=== PATIENT | male | born 1950 | race Caucasian/White ===

== ENCOUNTER 2017-02-10 20:54 | Inpatient (IN) ==
[2017-02-10] MEDS ORDERED: 0.9 % Sodium Chloride 1,000 ML IVC ONE (21:46)
[2017-02-10 22:30] LABS: Albumin 3.3 g/dL (3.5-5.0); Albumin/Globulin Ratio 0.9 (1.1-2.2); Bilirubin,Direct 0.1 mg/dL (0.0-0.5); Bilirubin,Indirect 0.2 mg/dL (0.0-1.2); Bilirubin,Total 0.3 mg/dL (0.2-1.2); Globulin 3.7 g/dL (2.4-3.5)
--- NOTE | 2017-02-10 22:48 | Emergency Department Note ---
Disposition Clinical Impression: Acute kidney injury superimposed on CKD Disposition: Admitted As Inpatient Condition: Good [facility] Provider[facility] - Forms: ED Satisfaction Letter General Adult HPI - General Chief complaint: ED GI Bleed Stated complaint: GI bleed Time Seen by Provider: 02/10/17 20:58 Source: patient Limitations: no limitations Nursing Notes Reviewed: Yes Vital Signs Reviewed: Yes - History of Present Illness HPI Narrative: [facility]. Review of patient' s medical chart reveals that appears is in acute on chronic renal failure. Patient states he has not been eating and drinking well over the past 3 days. Patient also states she has had diarrhea but he denies any current diarrhea today. Patient denies fevers or chills but he complains of weakness. Patient denies numbness or tingling associated. Pain Scale: 10 - Related Data Home Medications Medication Instructions Recorded Confirmed Albuterol Sulfate [Albuterol 2 puff IH Q6H PRN 02/10/17 02/10/17 Inhaler] Calcium Carbonate/Vitamin D3 2 each PO BID 02/10/17 02/10/17 [Calcium 500-Vit D3 200 Tablet] Cholecalciferol (D-3) [Vitamin D] 1,000 unit PO DAILY 02/10/17 02/10/17 Doxepin HCl 10 mg PO HS 02/10/17 02/10/17 L. Acidophilus/Pectin, [place] 1 each PO TID 02/10/17 02/10/17 [Acidophilus Probiotic Capsule] Metoprolol XL (24 HR) Succ [Toprol 50 mg PO DAILY 02/10/17 02/10/17 XL] Naproxen [Naprosyn] 500 mg PO BID 02/10/17 02/10/17 Pantoprazole [Protonix] 40 mg IVPB Q12H 02/10/17 02/10/17 Simvastatin [Zocor] 40 mg PO HS 02/10/17 02/10/17 Allergies Allergy/AdvReac Type Severity Reaction Status Date / Time gabapentin Allergy See Verified 02/10/17 21:05 Comments hydrochlorothiazide Allergy See Verified 02/10/17 21:05 Comments hydroxyzine [From Vistaril] Allergy See Verified 02/10/17 21:05 Comments All systems ED: reviewed and negative except as stated. Past Medical History - Past Medical History Source: patient Medical history: Reports: COPD, hyperlipidemia, hypertension, peripheral artery disease - Social History Smoking Status: Current every day smoker Smokeless Tobacco Status: No Alcohol use: Reports: none Drug use: Reports: none Physical Exam - General Limitations: no limitations General appearance: alert - Head Head exam: atraumatic, normocephalic, normal inspection - Eye Eye exam: Present: normal appearance, PERRL, EOMI - ENT ENT exam: normal exam, normal oropharynx, mucous membranes dry - Neck Neck exam: Present: normal inspection, full ROM, trachea midline - Chest Chest inspection: Present: normal inspection, symmetric chest wall rise - Respiratory Respiratory exam: Present: normal lung sounds bilaterally - Cardiovascular Cardiovascular exam: Present: regular rate, normal rhythm, normal heart sounds - Abdominal Exam Abdominal exam: Present: soft, Non-Tender. Absent: tenderness, distention, guarding, rebound, rigidity - Extremities Exam Extremities exam: Present: normal inspection, full ROM. Absent: tenderness, pedal edema - Back Exam Back exam: Present: normal inspection, full ROM. Absent: tenderness - Neurological Exam Neurological exam: Present: alert, oriented X3 - Psychiatric Psychiatric exam: Present: normal affect, normal mood - Skin Skin exam: Present: warm, dry, intact, normal color Course Vital Signs Temperature 98.4 F 02/10/17 20:56 Pulse Rate 110 02/10/17 20:56 Respiratory Rate 16 02/10/17 20:56 Blood Pressure 148/89 02/10/17 20:56 O2 Sat by Pulse Oximetry 98 02/10/17 20:56 Temperature 98.4 F 02/10/17 20:56 Pulse Rate 93 02/10/17 23:50 Respiratory Rate 16 02/10/17 23:50 Blood Pressure 144/76 02/10/17 23:50 O2 Sat by Pulse Oximetry 97 02/10/17 23:50 Oxygen Delivery Oxygen Delivery Room Air Medical Decision Making - Lab Data Lab Results 02/10/17 02/10/17 02/10/17 Range/Units 22:08 22:08 22:08 Lactic Acid 2.2 (0.5-2.2) mmol/L Total Bilirubin 0.3 (0.2-1.2) mg/dL Direct Bilirubin 0.1 (0.0-0.5) mg/dL Indirect Bilirubin 0.2 (0.0-1.2) mg/dL AST 42 H (5-34) Units/L ALT 16 (0-55) Units/L Alkaline Phosphatase 79 (38-126) Units/L Troponin I 0.06 H* (0-0.03) ng/mL Serum Total Protein 7.0 (6.0-8.3) g/dL Albumin 3.3 L (3.5-5.0) g/dL Globulin 3.7 H (2.4-3.5) g/dL Albumin/Globulin Ratio 0.9 L (1.1-2.2) - EKG Data EKG #1 EKG shows normal: sinus rhythm Rate: normal Rhythm: NSR Critical Care Time Total Critical Care Time: 30 Attestation: Critical care performed: Time is exclusive of separately billable procedures. Time includes: direct patient care, patient reassessment, coordination of patient care, interpretation of data (laboratory data, radiology data, and respiratory data), review of patient's medical records, medical consultation and documentation of patient care. Procedures included in critical care time: Procedures excluded from critical care time:
[2017-02-11] MEDS ORDERED: Ondansetron 4 MG/2 ML VIAL IV ONE (00:34)
[2017-02-11] MEDS ORDERED: *HR* Morphine 2 MG/ML SYRINGE IV ONE (00:34)
[2017-02-11] MEDS ORDERED: Naloxone 0.4 MG/ML INJ IVP PRN (02:53)
--- NOTE | 2017-02-11 03:02 | Internal Med History&Physical ---
Date of Encounter: 02/11/17 Time of Encounter: 03:02 Assessment and Plan (1) Acute colitis Current visit: Yes Status: Acute We will check for stool culture and C. difficile. Empirically start on ciprofloxacin and metronidazole. GI consultation for further advice and management. (2) GI bleeding Current visit: Yes Status: Acute Likely secondary to colitis. Avoid anticoagulants at this time. Monitor H&H Qualifiers: GI bleed type/associated pathology: unspecified gastrointestinal hemorrhage type Qualified Code(s): K92.2 - Gastrointestinal hemorrhage, unspecified (3) COPD (chronic obstructive pulmonary disease) Current visit: Yes Status: Chronic Not in acute exacerbation. Continue bronchodilators. Qualifiers: COPD type: unspecified COPD Qualified Code(s): J44.9 - Chronic obstructive pulmonary disease, unspecified (4) Nicotine dependence Current visit: Yes Status: Chronic Pt does not want any nicotine patches Qualifiers: Nicotine product type: cigarettes Substance use status: unspecified nicotine-induced disorder Qualified Code(s): F17.219 - Nicotine dependence, cigarettes, with unspecified nicotine-induced disorders (5) Acute kidney injury superimposed on CKD Current visit: Yes Status: Acute We do not know his baseline creatinine. Likely due to poor oral intake and GI loss. Treat with IV fluids. (6) DVT prophylaxis Current visit: Yes Status: Acute SCDs Internal Medicine - H&P: HPI Chief complaint: Diarrhea, blood in the stool, abdominal pain Admitted From: Emergency Dept Plans for Post Hospital Care: Home History of present illness: Mr. Luna is a 66 year old male with Past medical history significant for COPD , hyperlipidemia, hypertension, peripheral artery disease (?s/p aortofemoral bypass), abdominal aortic aneurysm. He is sent from the [facility] with concern for GI bleed. Pt reports abdominal pain (sensation of fullness) for a few days, along with nausea, diarrhea with (muddy stool) pinkish / blood in the stool. He apparently had over 10 BMs yesterday. He has poor oral intake, and concern that he gets BM after he tries to eat something. He denies recent antibiotic usage, sick contacts, eating salads or uncooked food. He denies fever, chills. He denies chest pain, shortness of breath. Patient was evaluated in the [facility] - CT scan of the abdomen and pelvis reported prominent pancolonic wall thickening with relative sparing of the cecum and proximal ascending colon. Colonic wall thickening is most severe at the hepatic flexure/proximal transverse colon. Also prominent wall thickening in the rectum. Perirectal and pericolonic inflammatory fat stranding most prominent adjacent to the hepatic flexure/proximal transverse colon with a small amount of nearby free fluid. Findings are compatible with relatively severe appearing nonspecific acute colitis/proctitis including possibility D of infectious heart intermittent etiology. His labs done in the [facility] showed no recent 0.1, hemoglobin 14.2, hematocrit 40.1, platelets 72, sodium 137, potassium 4.1, BUN 43, creatinine 2.72. Patient was sent to the emergency department at [facility] - he was given intravenous fluids and admitted to the hospitalist service for further management. Past Med Surg Social Fam HX - Past Medical History Medical history: COPD, hyperlipidemia, hypertension, peripheral artery disease Psychiatric history: anxiety, depression, PTSD - Social History Smoking Status: Current every day smoker Packs per day: 1.5 Smokeless Tobacco Status: No Alcohol use: none Drug use: none - Additional Family History Additional family history: Family history reviewed and is non contributory to current admission Internal Medicine - H&P: Meds Albuterol Sulfate [Albuterol Inhaler] 2 puff IH Q6H PRN 02/10/17 [History] Calcium Carbonate/Vitamin D3 [Calcium 500-Vit D3 200 Tablet] 2 each PO BID 02/10 [History] Cholecalciferol (D-3) [Vitamin D] 1,000 unit PO DAILY 02/10/17 [History] Doxepin HCl 10 mg PO HS 02/10/17 [History] L. Acidophilus/Pectin, [place] [Acidophilus Probiotic Capsule] 1 each PO TID [History] Metoprolol XL (24 HR) Succ [Toprol XL] 50 mg PO DAILY 02/10/17 [History] Naproxen [Naprosyn] 500 mg PO BID 02/10/17 [History] Pantoprazole [Protonix] 40 mg IVPB Q12H 02/10/17 [History] Simvastatin [Zocor] 40 mg PO HS 02/10/17 [History] Allergies gabapentin Allergy (Verified 02/10/17 21:05) See Comments hydrochlorothiazide Allergy (Verified 02/10/17 21:05) See Comments hydroxyzine [From Vistaril] Allergy (Verified 02/10/17 21:05) See Comments All Systems PM: A 10-system review of systems was performed and is negative for pertinent findings except as documented above in the HPI. - Constitutional Vitals: Temp Pulse Resp BP Pulse Ox 99.2 F 100 20 151/75 91 L 02/11/17 01:24 02/11/17 01:24 02/11/17 01:24 02/11/17 01:24 02/11/17 01:24 Exam: General: Not in acute pain at the time of my evaluation HEENT: Oral mucosa is moist. No conjunctival palor or scleral icterus Neck: No obvious neck swellings Lungs: Clear to auscultation Cardiac: Regular rate and rhythm. No significant murmurs Abdomen: mild diffuse abdominal tenderness. Bowel sounds increased. There is old midline scar present Genitourinary: No briceño catheter Neurological: Alert and oriented. No gross localizing deficits Psych: Not aggressive or agitated Extremities: no significant leg edema Skin: No generalized rash Internal Med - H&P Results - Labs CBC & Chem 7: 02/11/17 04:42 02/11/17 04:42 - EKG Data -: EKG Interpreted by Myself EKG shows normal: sinus rhythm Rate: tachycardia
[2017-02-11] MEDS: Ondansetron 4 MG/2 ML VIAL IVP PRN ×2 (04:11→20:25)
[2017-02-11] MEDS: 0.9 % Sodium Chloride 1,000 ML IVC SCH ×2 (04:11→15:04)
[2017-02-11 05:07] LABS: Red Cell Distribution Width 14.6 % (11.5-14.5)
[2017-02-11 05:08] LABS: Basophils % 0.1 %; Hematocrit 39.7 % (37.5-50.1); Immature Granulocytes % 0.5 % (0-4); Immature Platelets 17.6 % (1.1-6.1); Lymphocytes # 0.9 K/mcL (0.6-4.6); Lymphocytes % 10.2 %; Mean Corpuscular HGB Conc 32.7 g/dL (31.6-35.5); Mean Corpuscular Volume 88.4 fL (83.0-100.0); Mean Platelet Volume 13.6 fL (9.4-12.4); Monocytes # 0.6 K/mcL (0.0-1.3); Monocytes % 7.4 %; Red Blood Count 4.49 M/mcL (4.19-5.50); Segmented Neutrophils % 81.8 %
[2017-02-11 05:18] LABS: Calcium 7.6 mg/dL (8.6-10.8); Potassium 4.6 mEq/L (3.5-4.5)
[2017-02-11 05:35] LABS: Platelet Count 55 K/mcL (140-400)
[2017-02-11 05:36] LABS: Platelet Estimate Decreased (Normal)
[2017-02-11] MEDS: Pantoprazole 40 MG VIAL IVPB SCH ×2 (06:19→17:54)
[2017-02-11] MEDS: Metoprolol XL (24 HR) Succ 50 MG TAB.ER.24H PO SCH (09:09)
[2017-02-11] MEDS: Lactobacillus 1 EACH CAP.SPRINK PO SCH ×2 (09:10→20:20)
[2017-02-11] MEDS: MetroNIDAZOLE 500 MG/100 ML 500 MG/100 ML BAG IVPB SCH ×3 (09:10→23:16)
--- NOTE | 2017-02-11 12:24 | Gastroenterology Consult Note ---
<Mandeep Wood Ramona - Last Filed: 02/11/17 12:22> Date of Encounter: 02/11/17 Time of Encounter: 10:10 - Assessment and plan (1) Acute colitis Current Visit: Yes Status: Acute Assessment and plan: Likely ischemic colitis. Check stool studies. Plan for colonoscopy in 4-6 weeks as outpatient. Continue IV fluids, ATB, and pain control. (2) GI bleeding Current Visit: Yes Status: Acute Assessment and plan: Secondary to colitis. Qualifiers: GI bleed type/associated pathology: unspecified gastrointestinal hemorrhage type Qualified Code(s): K92.2 - Gastrointestinal hemorrhage, unspecified (3) COPD (chronic obstructive pulmonary disease) Current Visit: Yes Status: Chronic Qualifiers: COPD type: unspecified COPD Qualified Code(s): J44.9 - Chronic obstructive pulmonary disease, unspecified - Time Spent With Patient Total time spent is greater than 50% in coordination of care (as documented) at patient's floor/unit and/or counseling patient: GI History of Present Illness - Data of Consult Patient: new to practice Consult date: 02/11/17 Requesting Physician: Mamie Lindo MD - Consult Narrative Reason for consult: Pancolitis History of present illness: Mr. Luna is a 66 year old male with PMHx of COPD, HLD, HTN, PAD, AAA who was sent from the [facility] with concern for GI bleed. He complains of abdominal pain, nausea, diarrhea with blood in stool. He reports 10 BMs the day before admission with BRBPR at times. CT A/P at the [facility] showed prominent pancolonic wall thickening with relative sparing of the cecum and proximal ascending colon. Colonic wall thickening is most severe at the hepatic flexure/proximal transverse colon, also prominent wall thickening in the rectum. Perirectal and pericolonic inflammatory fat stranding most prominent adjacent to the hepatic flexure/proximal transverse colon with a small amount of nearby free fluid. He denies fever, chills, chest pain, or SOB. Procedures: None reported NSAIDs: None Anticoagulation: None Past Med Surg Social Fam HX - Past Medical History Medical history: COPD, hyperlipidemia, hypertension, peripheral artery disease Psychiatric history: anxiety, depression, PTSD - Social History Smoking Status: Current every day smoker Packs per day: 1.5 Smokeless Tobacco Status: No Alcohol use: none Drug use: none - Gastrointestinal Gastrointestinal: Present: as per HPI - Constitutional Constitutional: as per HPI - EENT Eyes: as per HPI Ears: Present: as per HPI Nose, mouth and throat: Present: as per HPI - Cardiovascular Cardiovascular ROS: Present: as per HPI - Respiratory Respiratory IM: Present: as per HPI - Genitourinary Genitourinary: Absent: change in color, Urinary frequency - Neurological ROS Neurological GI: Present: as per HPI - Hematologic/Lymphatic Hematologic/Lymphatic pediatric: Present: as per HPI - Musculoskeletal Musculoskeletal ROS GI: Present: as per HPI - Integumentary Integumentary GI: Present: as per HPI - Psychiatric ROS Psychiatric GI: Present: as per HPI - Endocrine Endocrine IM: Present: as per HPI - Constitutional Vitals: Temp Pulse Resp BP Pulse Ox 98.1 F 88 16 127/76 93 L 02/11/17 10:35 02/11/17 10:35 02/11/17 10:35 02/11/17 10:35 02/11/17 10:35 General appearance: Present: cooperative, A&O X 3, no acute distress, answers questions appropriately - Head Head exam: Present: atraumatic, normocephalic - Eye Eye exam: Present: normal appearance, sclera anicteric - ENT ENT exam: Present: mucous membranes moist - Neck Neck exam general surgery: Present: normal inspection, trachea midline - Respiratory Respiratory exam: Present: CTAB - Cardiovascular Cardiovascular exam: Present: RRR, +S1, +S2 - GI/Abdominal GI/Abdominal exam: Present: guarding, soft, tenderness (generalized), no peritoneal signs. Absent: distended, firm Additional comments: midabdominal surgical scar - Rectal Rectal exam: Present: deferred - Extremities Exam Extremities exam: Present: warm - Neurological Exam Neurological exam: Present: no focal deficits - Psychiatric Psychiatric exam: Present: normal affect, normal mood - Skin Skin exam: Present: dry, intact, normal color, warm Results - Labs CBC & Chem 7: 02/11/17 04:42 02/11/17 04:42 Labs: Last Result Calcium 7.6 mg/dL (8.6-10.8) L 02/11/17 04:42 Troponin I 0.06 ng/mL (0-0.03) H* 02/11/17 04:42 Entire Visit Hgb 13.0 g/dL (12.9-16.9) 02/11/17 04:42 Hct 39.7 % (37.5-50.1) 02/11/17 04:42 Total Bilirubin 0.3 mg/dL (0.2-1.2) 02/10/17 22:08 AST 42 Units/L (5-34) H 02/10/17 22:08 ALT 16 Units/L (0-55) 02/10/17 22:08 Consult Discharge Plan - Plan [facility]errals: [facility]Primary Care Provider[facility] - <Chaz English - Last Filed: 02/11/17 17:50> Time of Encounter: 14:00 - Time Spent With Patient Total time spent is greater than 50% in coordination of care (as documented) at patient's floor/unit and/or counseling patient: GI History of Present Illness - Data of Consult Requesting Physician: Mamie Lindo MD - Consult Narrative History of present illness: Mr. Luna is a 66 year old male - Constitutional Vitals: Temp Pulse Resp BP Pulse Ox 98.9 F 88 18 119/67 90 L 02/11/17 14:53 02/11/17 14:53 02/11/17 14:53 02/11/17 14:53 02/11/17 14:53 Results - Labs CBC & Chem 7: 02/11/17 16:19 02/11/17 04:42 Labs: Last Result Calcium 7.6 mg/dL (8.6-10.8) L 02/11/17 04:42 Troponin I 0.06 ng/mL (0-0.03) H* 02/11/17 04:42 Entire Visit Hgb 12.7 g/dL (12.9-16.9) L 02/11/17 16:19 Hct 38.6 % (37.5-50.1) 02/11/17 16:19 Total Bilirubin 0.3 mg/dL (0.2-1.2) 02/10/17 22:08 AST 42 Units/L (5-34) H 02/10/17 22:08 ALT 16 Units/L (0-55) 02/10/17 22:08 - Attending Attestation I examined this patient and my medical decision-making was reviewed with the [facility]/PA/Advanced Practice Nurse/Resident Physician. I agree with the documented findings, disposition and treatment plan as described except to the extent set forth below.
[2017-02-11 16:27] LABS: Hematocrit 38.6 % (37.5-50.1); Hemoglobin 12.7 g/dL (12.9-16.9)
--- NOTE | 2017-02-11 18:13 | Electrocardiograph Report ---
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
[2017-02-11] MEDS ORDERED: DOXEPIN HCL 10 MG PO SCH (21:00)
[2017-02-11] MEDS ORDERED: *HR* Morphine 2 MG/ML SYRINGE IVP ONE (22:10)
[2017-02-12] MEDS: 0.9 % Sodium Chloride 1,000 ML IVC SCH ×2 (03:55)
[2017-02-12] MEDS ORDERED: *HR* Morphine 2 MG/ML SYRINGE IVP ONE (04:47)
[2017-02-12] MEDS: Pantoprazole 40 MG VIAL IVPB SCH ×2 (04:56→18:14)
[2017-02-12] MEDS: Ondansetron 4 MG/2 ML VIAL IVP PRN (04:56)
[2017-02-12] MEDS: *HR* Morphine 2 MG/ML SYRINGE IVP PRN ×3 (04:57→18:24)
[2017-02-12] MEDS: Lactobacillus 1 EACH CAP.SPRINK PO SCH ×2 (09:02→19:46)
[2017-02-12] MEDS: MetroNIDAZOLE 500 MG/100 ML 500 MG/100 ML BAG IVPB SCH ×3 (09:03→23:30)
[2017-02-12] MEDS: Metoprolol XL (24 HR) Succ 50 MG TAB.ER.24H PO SCH (09:31)
[2017-02-12] MEDS ORDERED: 0.9 % Sodium Chloride 1,000 ML IVC SCH (09:49)
[2017-02-12 10:24] LABS: Mean Corpuscular Volume 89.7 fL (83.0-100.0); Red Cell Distribution Width 15.1 % (11.5-14.5)
[2017-02-12 10:26] LABS: Hematocrit 36.4 % (37.5-50.1); Hemoglobin 11.7 g/dL (12.9-16.9); Immature Platelets 20.2 % (1.1-6.1); Mean Corpuscular HGB Conc 32.1 g/dL (31.6-35.5); Mean Corpuscular Hemoglobin 28.8 pg (28.0-33.3); Mean Platelet Volume 14.2 fL (9.4-12.4); Red Blood Count 4.06 M/mcL (4.19-5.50)
[2017-02-12 11:23] LABS: Platelet Count 50 K/mcL (140-400)
[2017-02-12 11:27] LABS: Lymphocytes # 1.3 K/mcL (0.6-4.6); Monocytes # 0.2 K/mcL (0.0-1.3); Toxic Vacuolation Present (Not Present)
[2017-02-12 11:28] LABS: Platelet Estimate Decreased (Normal)
[2017-02-12 11:35] LABS: Calcium 7.7 mg/dL (8.6-10.8); Magnesium 1.9 mg/dL (1.6-2.6); Potassium 4.5 mEq/L (3.5-4.5)
--- NOTE | 2017-02-12 18:25 | Internal Med Progress Note ---
Date of Encounter: 02/12/17 Time of Encounter: 10:00 - Assessment and plan (1) Acute colitis Current Visit: Yes Status: Acute Assessment and plan: Patient complains of abdominal pain, nausea, and hematochezia with diarrhea. She reports 10 bowel movements a day before admission with rectal bleeding at times. CT abdomen and pelvis done at the [facility] revealed pancolonic wall thickening with relative sparing of the cecum and proximal ascending colon. Perirectal and pericolonic inflammatory stranding most prominent adjacent to the hepatic flexure/proximal transverse colon with a small amount of nearby free fluid. Clinical Presentation suggests ischemic etiology. Patient's abdominal pain has improved mildly. no rectal bleeding. Continue IV cipro/Flagyl and aspirin. (2) Acute worsening of stage 3 chronic kidney disease Current Visit: Yes Status: Acute Assessment and plan: unknown baseline of kidney function. acute injury is pre-renal due to GI bleed/ diarrhea. Improving after starting IV fluids. close monitor. avoid nephrotoxin agents as possible. (3) Acute blood loss anemia Current Visit: Yes Status: Acute Assessment and plan: Secondary to GI bleed from acute colitis. Hgs is 11.7. no need for transfusion at this time. close monitor of hgb. pt is hemodynamically stable. (4) COPD (chronic obstructive pulmonary disease) Current Visit: Yes Status: Chronic Assessment and plan: stable. continue nebs prn. Qualifiers: COPD type: unspecified COPD Qualified Code(s): J44.9 - Chronic obstructive pulmonary disease, unspecified (5) Thrombocytopenia Current Visit: Yes Status: Acute Assessment and plan: Unknown baseline platelets level. platelet is 50-55. close monitor. no active bleeding today. (6) Nicotine dependence Current Visit: Yes Status: Chronic Assessment and plan: counseled to quit smoking, Qualifiers: Nicotine product type: cigarettes Substance use status: unspecified nicotine-induced disorder Qualified Code(s): F17.219 - Nicotine dependence, cigarettes, with unspecified nicotine-induced disorders - Subjective Interval history: Patient reports some improvement of abdominal pain, no nausea, no vomiting, no bleeding. No bowel movement. - Constitutional Vitals: Temp Pulse Resp BP Pulse Ox 97.8 F 85 18 105/65 96 02/12/17 14:30 02/12/17 14:30 02/12/17 14:30 02/12/17 14:30 02/12/17 14:30 General appearance: Present: cooperative, A&O X 3, pleasant, no acute distress, answers questions appropriately - Eye Eye exam: Present: PERRL, sclera anicteric - Neck Neck exam general surgery: Present: supple, trachea midline. Absent: lymphadenopathy - Respiratory Respiratory exam: Present: CTAB - Cardiovascular Cardiovascular exam: Present: RRR - GI/Abdominal GI/Abdominal exam: Present: normal bowel sounds, soft. Absent: distended, tenderness - Extremities Exam Extremities exam: Absent: pedal edema - Back Exam Back exam: Absent: CVA tenderness (L), CVA tenderness (R) - Neurological Exam Neurological exam: Present: alert, oriented X3, no focal deficits, strengths equal and symetr throughout. Absent: facial droop, speech deficit - Skin Skin exam: Absent: rash Internal Medicine: Result - Labs CBC & Chem 7: 02/12/17 10:14 02/12/17 10:14 Labs: Short CBC 02/12/17 Range/Units 10:14 WBC 9.5 (4.3-11.1) K/mcL Hgb 11.7 L (12.9-16.9) g/dL Hct 36.4 L (37.5-50.1) % Plt Count 50 L (140-400) K/mcL Neutrophils # 8.0 (1.6-8.9) K/mcL BMP 02/12/17 10:14 Sodium 136 Potassium 4.5 Chloride 110 H Carbon Dioxide 17 L BUN 38 H Creatinine 1.75 H Glucose 90 Calcium 7.7 L - VTE Documentation of Mechanical Device: Intermittent pneumatic compression device Consult Discharge Plan - Plan Referrals: [facility] [Outside]
[2017-02-12] MEDS ORDERED: *HR* Morphine 2 MG/ML SYRINGE IVP PRN (18:29)
[2017-02-13 04:46] LABS: Basophils % 0.1 %; Mean Corpuscular Hemoglobin 28.6 pg (28.0-33.3)
[2017-02-13 04:48] LABS: Hematocrit 35.9 % (37.5-50.1); Hemoglobin 11.4 g/dL (12.9-16.9); INR 1.2; Immature Granulocytes % 1.3 % (0-4); Immature Platelets 22.5 % (1.1-6.1); Lymphocytes # 0.9 K/mcL (0.6-4.6); Lymphocytes % 11.5 %; Mean Corpuscular HGB Conc 31.8 g/dL (31.6-35.5); Mean Corpuscular Volume 90.2 fL (83.0-100.0); Mean Platelet Volume 13.6 fL (9.4-12.4); Monocytes # 0.5 K/mcL (0.0-1.3); Monocytes % 5.7 %; Neutrophils # 6.4 K/mcL (1.6-8.9); Red Blood Count 3.98 M/mcL (4.19-5.50); Red Cell Distribution Width 15.5 % (11.5-14.5); Segmented Neutrophils % 81.4 %
[2017-02-13 04:59] LABS: Calcium 7.9 mg/dL (8.6-10.8); Magnesium 1.8 mg/dL (1.6-2.6); Potassium 4.7 mEq/L (3.5-4.5)
[2017-02-13] MEDS: Pantoprazole 40 MG VIAL IVPB SCH (05:08)
[2017-02-13 05:24] LABS: Platelet Count 54 K/mcL (140-400)
[2017-02-13 05:25] LABS: Platelet Estimate Decreased (Normal)
[2017-02-13 05:33] LABS: Folate 4.6 ng/mL (7.0-31.4)
[2017-02-13] MEDS: MetroNIDAZOLE 500 MG/100 ML 500 MG/100 ML BAG IVPB SCH (08:39)
[2017-02-13] MEDS: Lactobacillus 1 EACH CAP.SPRINK PO SCH (08:39)
[2017-02-13] MEDS: Metoprolol XL (24 HR) Succ 50 MG TAB.ER.24H PO SCH (08:39)
[2017-02-13] MEDS ORDERED: Aspirin 81 MG TAB.CHEW PO SCH (09:00)
[2017-02-13] MEDS ORDERED: *HR* HYDROcodone/Acet 5/325 mg TABLET PO PRN (10:07)
--- NOTE | 2017-02-13 10:12 | Discharge Summary ---
Date of Encounter: 02/13/17 Time of Encounter: 09:45 - Discharge Diagnosis (1) Acute colitis Priority: Primary Status: Acute (2) Acute worsening of stage 3 chronic kidney disease Priority: Primary Status: Acute (3) Acute blood loss anemia Priority: Primary Status: Acute (4) COPD (chronic obstructive pulmonary disease) Priority: Secondary Status: Chronic Qualifiers: COPD type: unspecified COPD Qualified Code(s): J44.9 - Chronic obstructive pulmonary disease, unspecified (5) Thrombocytopenia Priority: Primary Status: Chronic (6) Nicotine dependence Priority: Secondary Status: Chronic Qualifiers: Nicotine product type: cigarettes Substance use status: unspecified nicotine-induced disorder Qualified Code(s): F17.219 - Nicotine dependence, cigarettes, with unspecified nicotine-induced disorders - Discharge Medications Prescriptions: HYDROcodone/Acet 5/325 mg [[place] 5-325 mg] 1 tab PO Q8HR PRN #10 tab PRN Reason: Pain Aspirin 81 mg PO DAILY #30 tab.chew Ciprofloxacin [Cipro] 500 mg PO BID #10 tablet MetroNIDAZOLE [Flagyl] 500 mg PO TID #12 tablet Home Medications: Albuterol Sulfate [Albuterol Inhaler] 2 puff IH Q6H PRN 02/10/17 [History] Calcium Carbonate/Vitamin D3 [Calcium 500-Vit D3 200 Tablet] 2 each PO BID 02/10 [History] Cholecalciferol (D-3) [Vitamin D] 1,000 unit PO DAILY 02/10/17 [History] Doxepin HCl 10 mg PO HS 02/10/17 [History] L. Acidophilus/Pectin, [place] [Acidophilus Probiotic Capsule] 1 each PO TID [History] Metoprolol XL (24 HR) Succ [Toprol Xl] 50 mg PO DAILY 02/10/17 [History] Naproxen [Naprosyn] 500 mg PO BID 02/10/17 [History] Simvastatin [Zocor] 40 mg PO HS 02/10/17 [History] Aspirin 81 mg PO DAILY #30 tab.chew 02/13/17 [Rx] Ciprofloxacin [Cipro] 500 mg PO BID #10 tablet 02/13/17 [Rx] HYDROcodone/Acet 5/325 mg [[place] 5-325 mg] 1 tab PO Q8HR PRN #10 tab 02/13/17 [ Rx] MetroNIDAZOLE [Flagyl] 500 mg PO TID #12 tablet 02/13/17 [Rx] Allergies/Adverse Reactions: Allergies gabapentin Allergy (Verified 02/10/17 21:05) See Comments hydrochlorothiazide Allergy (Verified 02/10/17 21:05) See Comments hydroxyzine [From Vistaril] Allergy (Verified 02/10/17 21:05) See Comments Date of admission: 02/11/17 03:01 Primary care physician: PCP [place] - Patient Status Disposition: Home, Self-Care Condition: Good Functional capacity at discharge: independent ambulation Overall status at discharge: patient is progressing back to baseline - Ambulatory Orders Ambulatory Orders: Basic Metabolic Panel [CHEM] Time Frame: 02/16/17, Facility: [facility], Location: Lab - Discharge Instructions Follow Up With: [facility] [Outside] (f/u in 1 week) Additional Instructions: STOP SMOKING, TOBACCO CAUSED YOU THE INFLAMMATION IN YOUR BOWELS WELL THE RECTAL BLEEDING FOLLOW UP WITH YOUR DOCTOR NEXT WEEK TAKE NEW MEDICATIONS PRESCRIBED EAT A SOFT DIET FOR A FEW DAYS AND ADVANCE YOUR DIET TO SOLID TOLERATED. - Diet and Activity Activity: resume usual activities as tolerated Diet: other (SOFT, LOW FAT DIET FOR FEW DAYS, THEN ADVACE TO LOW FAT SOLID DIET TOLERATED) Interval History: Patient reports he feels better and would like to go home. He is not eating his diet because he does not like the food. He is drinking plenty of fluids. No nausea. No vomiting. He still has some abdominal pain and he is requiring morphine. He Agrees to eat egg for breakfast and if he tolerates he will go home today. Hospital course: Mr. Luna is a 66 year old male with past medical history of COPD, hypertension , PVD 80, tobacco use, and PTSD. He presents with abdominal pain, nausea, and hematochezia with diarrhea. She reports 10 bowel movements a day before admission with rectal bleeding at times. CT abdomen and pelvis done at the [facility] revealed pancolonic wall thickening with relative sparing of the cecum and proximal ascending colon. Perirectal and pericolonic inflammatory stranding most prominent adjacent to the hepatic flexure/proximal transverse colon with a small amount of nearby free fluid. His clinical Presentation suggests ischemic etiology for his acute colitis. She was started on IV ciprofloxacin and IV Flagyl as well as aspirin. His symptoms improved slowly and he was eager to go home. At discharge, he was drinking plenty of fluids and eating only the follicular legs in the hospital. He said that at home he will eat more. His hemoglobin was stable at 11.4 on discharge. PLAN: Patient was counseled to quit smoking given history of severe peripheral vascular disease and new-onset of acute ischemic colitis. BMP check next week. He will follow-up in the [facility] next Week. - Time Spent with Patient Total time spent providing and/or coordinating discharge services: - Constitutional Vitals: Temp Pulse Resp BP Pulse Ox 98.3 F 73 20 127/70 95 02/13/17 07:00 02/13/17 07:00 02/13/17 07:00 02/13/17 07:00 02/13/17 07:00 General appearance: Present: cooperative, A&O X 3, pleasant, no acute distress, answers questions appropriately - Eye Eye exam: Present: PERRL, sclera anicteric - Neck Neck exam general surgery: Present: supple, trachea midline. Absent: lymphadenopathy - Respiratory Respiratory exam: Present: CTAB - Cardiovascular Cardiovascular exam: Present: RRR - GI/Abdominal GI/Abdominal exam: Present: normal bowel sounds, soft. Absent: distended, tenderness - Extremities Exam Extremities exam: Absent: pedal edema - Back Exam Back exam: Absent: CVA tenderness (L), CVA tenderness (R) - Neurological Exam Neurological exam: Present: alert, oriented X3. Absent: facial droop, speech deficit - VTE Documentation of Mechanical Device: Intermittent pneumatic compression device
[2017-02-13 11:55] VITALS: BP 111/64
== END 2017-02-13 15:32 | disposition home or self-care (01) | DRG 394 ==
LOC: EMEROO 20:54 → 3ANU 20:54
PROVIDERS: ADMIT Internal Medicine; ATTEND Internal Medicine Pulmonary Disease

== ENCOUNTER 2017-02-19 20:19 | Inpatient (IN) ==
[2017-02-19] MEDS ORDERED: Ipratropium/Albuterol Neb 3 ML IH ONE (20:52)
[2017-02-19] MEDS ORDERED: *HR* Heparin 5,000 UNIT/ML VIAL IVP PRN ×2 (23:00)
[2017-02-19] MEDS ORDERED: *HR* Heparin 5,000 UNIT/ML VIAL IVP ONE (23:00)
--- NOTE | 2017-02-19 23:05 | Emergency Department Note ---
Disposition Clinical Impression: Bilateral pulmonary embolism Disposition: Admitted As Inpatient Condition: Fair Time of Disposition: 02:00 SOB HPI - General Chief Complaint: ED Shortness of Breath/Dyspnea Stated Complaint: JOSE Time Seen by Provider: 02/19/17 20:32 Source: patient, family, EMS Limitations: no limitations Nursing Notes Reviewed: Yes Vital Signs Reviewed: Yes - History of Present Illness Patient is a 66-year-old male who presents to [facility] ED with a chief complaint of 2 week history of difficulty breathing. States he has felt progressively more and more short of breath. Past medical history significant for COPD. States he did quit smoking approximately one week ago. Patient was recently discharged from our facility after being admitted for GI bleed secondary to colitis. He had been treated with ciprofloxacin and Flagyl. States throughout his stay, he was continuously short of breath. Today, he went to the [facility] who sent him to our emergency department evaluated for possible pulmonary embolus. Patient's kidney function was poor and needed a VQ scan. Pt Subjective Complaint: shortness of breath Onset (ago): week(s) Context: recent illness Severity: severe Consistency/Duration: gradually worsening Improves with: nothing Worsens with: exertion Known history of: COPD Associated symptoms: Reports: cough, wheezing. Denies: chest pain, fever, nausea/vomiting, abdominal pain Treatment prior to arrival: none Cough present: No - Related Data Home oxygen amount: none Home Medications Medication Instructions Recorded Confirmed Albuterol Sulfate [Albuterol 2 puff IH Q6H PRN 02/10/17 02/20/17 Inhaler] Doxepin HCl 10 mg PO HS 02/10/17 02/10/17 L. Acidophilus/Pectin, [place] 1 each PO TID 02/10/17 02/10/17 [Acidophilus Probiotic Capsule] Metoprolol XL (24 HR) Succ [Toprol 50 mg PO DAILY 02/10/17 02/20/17 Xl] Naproxen [Naprosyn] 500 mg PO BID 02/10/17 02/20/17 Previous Rx's Medication Instructions Recorded HYDROcodone/Acet 5/325 mg [[place] 1 tab PO Q8HR PRN #10 tab 02/13/17 5-325 mg] Allergies Allergy/AdvReac Type Severity Reaction Status Date / Time gabapentin Allergy See Verified 02/10/17 21:05 Comments hydrochlorothiazide Allergy See Verified 02/10/17 21:05 Comments hydroxyzine [From Vistaril] Allergy See Verified 02/10/17 21:05 Comments All systems ED: reviewed and negative except as stated. Past Medical History - Past Medical History Attestation: Yes The following information was validated with the patient. Source: patient Medical history: Reports: COPD, hyperlipidemia, hypertension, peripheral artery disease Psychiatric history: Reports: anxiety, depression, PTSD - Social History Smoking Status: Current every day smoker Smokeless Tobacco Status: No Alcohol use: Reports: none Drug use: Reports: none Physical Exam - General Limitations: no limitations General appearance: alert, in no apparent distress - Head Head exam: atraumatic, normocephalic, normal inspection - Eye Eye exam: Present: normal appearance, PERRL, EOMI - ENT ENT exam: normal exam, normal oropharynx, mucous membranes moist - Neck Neck exam: Present: normal inspection, full ROM, trachea midline - Chest Chest inspection: Present: normal inspection, symmetric chest wall rise - Respiratory Respiratory exam: Present: wheezes (Diffusely bilaterally) - Cardiovascular Cardiovascular exam: Present: normal rhythm, tachycardia - Abdominal Exam Abdominal exam: Present: soft, Non-Tender. Absent: tenderness, distention, guarding, rebound, rigidity - Extremities Exam Extremities exam: Present: normal inspection, full ROM. Absent: tenderness, pedal edema - Neurological Exam Neurological exam: Present: alert - Psychiatric Psychiatric exam: Present: normal affect, normal mood - Skin Skin exam: Present: warm, dry, intact, normal color Course Course Narrative: Patient seen and examined. Sent here to rule out PE with VQ scan. VQ scan ordered. Chest x-ray ordered also. Since patient has bilateral diffuse wheezes , all to a triple DuoNeb treatment as well. [facility] - Reevaluation(s) Reevaluation #1: VQ scan shows multiple areas of segmental and subsegmental perfusion defects. Moderate suspicion for pulmonary embolus. Coags ordered. Repeat troponin also ordered. Will start patient on a heparin drip. I spoke with hospitalist Dr. Flores who has accepted patient for admission. Time: 02:00 Vital Signs Temperature 98.2 F 02/19/17 20:25 Pulse Rate 115 02/19/17 20:25 Respiratory Rate 16 02/19/17 20:25 Blood Pressure 150/90 02/19/17 20:25 O2 Sat by Pulse Oximetry 88 02/19/17 20:25 Temperature 98.3 F 02/20/17 07:00 Pulse Rate 90 02/20/17 07:00 Respiratory Rate 17 02/20/17 07:00 Blood Pressure 153/77 02/20/17 07:00 O2 Sat by Pulse Oximetry 93 02/20/17 07:00 Oxygen Delivery Oxygen Delivery Nasal Cannula Shortness of Breath/Dyspnea - Medical Records Medical records reviewed: Yes I reviewed the patient's medical records. - Lab Data Lab results reviewed: Yes I reviewed the patient's lab results. Result diagrams: 02/20/17 05:22 02/20/17 01:22 Lab Results 02/19/17 02/19/17 02/19/17 Range/Units 23:17 23:17 23:36 PT 14.0 H (9.4-12.1) Seconds INR 1.3 APTT 26.1 (26.0-36.0) Seconds Troponin I 0.03 (0-0.03) ng/mL Stool Occult Blood Positive A (Negative) - Radiology Data Radiology results reviewed: Yes I reviewed the patient's radiology results. Pulmonary Perfusion Imaging 02/19/17 20:32 IMPRESSION: Multiple various sized segmental and subsegmental matched ventilation-perfusion defects throughout both lungs are consistent with an intermediate probability study for pulmonary embolism. Suggest clinical correlation, and consider a follow-up CT pulmonary angiogram for more detailed characterization. D/ / Wilfrid White MD / Wilfrid White MD Interpreting Provider: Wilfrid White MD Chest X-Ray 02/19/17 20:51 IMPRESSION: 1. No acute cardiopulmonary disease. D/ / Rickey Cleaning MD / Rickey Cleaning MD Interpreting Provider: Rickey Cleaning MD Critical Care Time Critical Care Time: Yes Total Critical Care Time: 35 Attestation: Critical care performed: Time is exclusive of separately billable procedures. Time includes: direct patient care, patient reassessment, coordination of patient care, interpretation of data (laboratory data, radiology data, and respiratory data), review of patient's medical records, medical consultation and documentation of patient care. Procedures included in critical care time: Procedures excluded from critical care time: Attestation Statement - Attestation Attestation: I, Dg Kraus MD, personally performed a history and physical exam of the patient and discussed their management with the resident. I reviewed the resident's note and agree with the documented findings, medical decision making , and plan of care. 66-year-old male transferred here from the [facility] for a VQ scan to rule out pulmonary embolism. This patient was in the hospital here about a week ago for some rectal bleeding was found to have colitis which was treated with antibiotics. He states that while he was in the hospital he had some shortness of breath which has continued since being discharged and seems to be getting progressively worse. There has been some pleuritic chest pain with coughing or deep breathing. No fever. No increased cough or sputum production. He does have a history of COPD. He was a smoker but quit smoking about a week ago. On examination patient is a well-developed well-nourished elderly male in no acute distress. He is alert and oriented 3. There is no cyanosis or diaphoresis. Chest is nontender to palpation. Breath sounds are decreased bilaterally with scattered bilateral expiratory wheezes. Heart regular rate and rhythm. Abdomen soft and nontender with normal bowel sounds. Labs from the [facility] reviewed. Troponin normal. EKG here normal with no acute changes or ectopy. A VQ scan was obtained and shows intermediate probability for pulmonary emboli with bilateral segmental and subsegmental defects. The hospitalist, Dr. Flores, was consulted and accepted admission of the patient. Patient was placed on a heparin infusion in the emergency department.
[2017-02-19 23:30] LABS: INR 1.3
[2017-02-19 23:33] LABS: Activated Partial Thrombo Time 26.1 Seconds (26.0-36.0)
[2017-02-19] MEDS: Heparin 25,000 UNIT/500 ML D5W 25,000 UNIT/500 ML MLS IVC SCH (23:42)
[2017-02-20] MEDS ORDERED: Naloxone 0.4 MG/ML INJ IVP PRN (01:03)
[2017-02-20] MEDS ORDERED: *HR* Promethazine 25 MG/ML VIAL IVP PRN (01:03)
[2017-02-20] MEDS ORDERED: *HR* Morphine 2 MG/ML SYRINGE IVP ONE (01:36)
[2017-02-20 01:42] LABS: INR 1.3; Prothrombin Time 14.3 Seconds (9.4-12.1)
[2017-02-20 01:45] LABS: Activated Partial Thrombo Time 63.6 Seconds (26.0-36.0)
[2017-02-20] MEDS ORDERED: Albuterol 2.5 MG/3 ML NEBULIZER IH ONE (01:53)
[2017-02-20 01:57] LABS: Albumin/Globulin Ratio 0.7 (1.1-2.2); Bilirubin,Total 0.3 mg/dL (0.2-1.2); Globulin 4.3 g/dL (2.4-3.5); Potassium 3.5 mEq/L (3.5-4.5); Total Protein 7.3 g/dL (6.0-8.3)
[2017-02-20] MEDS ORDERED: Ipratropium/Albuterol Neb 3 ML IH PRN (02:25)
[2017-02-20] MEDS ORDERED: Albuterol 2.5 MG/3 ML NEBULIZER IH PRN (02:26)
--- NOTE | 2017-02-20 02:33 | Internal Med History&Physical ---
<Cherry Limon - Last Filed: 02/20/17 04:19> Date of Encounter: 02/20/17 Time of Encounter: 02:30 Assessment and Plan (1) Pulmonary emboli Current visit: Yes Status: Suspected VQ scan evidence of various segmental and subsegmental ventillation defect CTA not previously done due to CR >2, GFR 46 Cr now 1.5, improved from previous, near baseline BP 141/95, pt prescribed metoprolol but does not take regularly currently hemodynamically stable heparin drip Pt 14.0 INR 1.3 O2 NC prn pain control, supportive care venous doppler ECHO AAA US (2) Atypical chest pain Current visit: Yes Status: Acute on heparin drip pain control EKG NS tachycardia trop .02 will recheck trop ECHO AAA US (3) HTN (hypertension) Current visit: Yes Status: Acute 141/95 home BP med monitor (4) PAD (peripheral artery disease) Current visit: Yes Status: Acute (5) HLD (hyperlipidemia) Current visit: Yes Status: Acute (6) PTSD (post-traumatic stress disorder) Current visit: Yes Status: Acute home meds (7) CAD (coronary artery disease) Current visit: Yes Status: Acute (8) H/O aorto-femoral bypass Current visit: Yes Status: Acute (9) COPD (chronic obstructive pulmonary disease) Current visit: No Status: Chronic bronchodilator treatment O2 prn maintain sat >89 Qualifiers: COPD type: unspecified COPD Qualified Code(s): J44.9 - Chronic obstructive pulmonary disease, unspecified (10) Nicotine dependence Current visit: No Status: Chronic nicotine patch prn Qualifiers: Nicotine product type: cigarettes Substance use status: unspecified nicotine-induced disorder Qualified Code(s): F17.219 - Nicotine dependence, cigarettes, with unspecified nicotine-induced disorders Internal Medicine - H&P: HPI Chief complaint: dyspnea Admitted From: Home Plans for Post Hospital Care: Home History of present illness: Mr. Luna is a 66 year old male dyspnea. PMHx CAD,PVD, aorto-fem bypass, AAA, HTN, HLD, COPD, CKD. c/o dsypnea and chest pain. pt states symptoms started approximately one week ago and have been slowly getting worse. Pt states he has some baseline SOB secondary to COPD, which he recently quite smoking about one week ago. Dyspnea on exertion are above baseline and he now is SOB at rest and with conversation with dry cough and substernal chest pain that radiates across his chest. Pt was recently hospitalized 02/10 for GI bleeding, at that time was taken off his daily asprin, after discharge he never resumed asprin or any other antiplatelet/anticoagulant medications. admits to some nausea without vomiting.Pt denies syncope, loc, change in vision, headache. denies hemoptysis, blood in urine or stool. Past Med Surg Social Fam HX - Past Medical History Medical history: COPD, coronary artery disease, GI bleed, hyperlipidemia, hypertension, peripheral artery disease, renal disease Psychiatric history: anxiety, depression, PTSD - Past Surgical History Surgical History: herniorrhaphy, LE Bypass, LE stent(s), LE vascular intervention, vascular surgery - Social History Smoking Status: Former smoker (quite one week ago) Packs per day: 1-2ppdx 45 years Smokeless Tobacco Status: No Alcohol use: none Drug use: none Current living situation: Home Activity Level: Independent ambulation Recent Out of Country Travel Within the Last 8 Weeks: No Exposure or Possible Exposure to Illness During Travel: No Internal Medicine - H&P: Meds Albuterol Sulfate [Albuterol Inhaler] 2 puff IH Q6H PRN 02/10/17 [History] Doxepin HCl 10 mg PO HS 02/10/17 [History] L. Acidophilus/Pectin, [place] [Acidophilus Probiotic Capsule] 1 each PO TID [History] Metoprolol XL (24 HR) Succ [Toprol Xl] 50 mg PO DAILY 02/10/17 [History] Naproxen [Naprosyn] 500 mg PO BID 02/10/17 [History] HYDROcodone/Acet 5/325 mg [[employer] 5-325 mg] 1 tab PO Q8HR PRN #10 tab 02/13/17 [ Rx] Allergies gabapentin Allergy (Verified 02/10/17 21:05) See Comments hydrochlorothiazide Allergy (Verified 02/10/17 21:05) See Comments hydroxyzine [From Vistaril] Allergy (Verified 02/10/17 21:05) See Comments All Systems PM: A 10-system review of systems was performed and is negative for pertinent findings except as documented above in the HPI. - Constitutional Constitutional: no chills, no fever(s), no night sweats - EENT Eyes: no change in vision, no discharge, no pain, no photophobia Ears: no ear discharge, no ear pain, no tinnitus Nose, mouth and throat: no dysphagia, no nasal discharge, no neck pain, no sore throat - Cardiovascular Cardiovascular ROS IM: chest pain, no diaphoresis, no edema, no irregular heart rhythm, no lightheadedness, no palpitations, no syncope - Respiratory Respiratory: cough, dyspnea, dyspnea on exertion, no hemoptysis, no wheezing, no chest congestion, no excessive phlegm production, no change in phlegm color - Gastrointestinal Gastrointestinal: no abdominal pain, no diarrhea, no hematemesis, no hematochezia, no melena, no nausea, no vomiting - Genitourinary Genitourinary ROS male: no difficulty urinating, no dysuria, no hematuria - Musculoskeletal Musculoskeletal ROS IM: no numbness, no tingling - Integumentary Integumentary IM: no rash, no unusual bruising - Neurological Neurological ROS: no confusion, no convulsions, no focal weakness, no numbness, no tingling, no tremor(s) - Constitutional Vitals: Temp Pulse Resp BP Pulse Ox 97.7 F 109 18 160/101 97 02/20/17 01:23 02/20/17 01:23 02/20/17 01:23 02/20/17 01:23 02/20/17 01:23 General appearance: Present: cachectic, A&O X 3, no acute distress, answers questions appropriately - Head Head exam: Present: atraumatic, normocephalic - Eye Eye exam: Present: EOMI, PERRL, conjuntiva pink, sclera anicteric Pupils: Present: PERRL - Neck Neck exam general surgery: Present: supple, trachea midline. Absent: lymphadenopathy - Respiratory Respiratory exam: Present: accessory muscle use (mild), decreased breath sounds , rales (faint at bases), wheezes (mild inspiratory and expiratory anterior and posterior), tachypnea. Absent: chest wall tenderness Additional comments: tachypnic and dyspnic with conversation - Cardiovascular Cardiovascular exam: Present: RRR, +S1, +S2. Absent: diastolic murmur, gallop, rubs, systolic murmur - GI/Abdominal GI/Abdominal exam: Present: hernia (infraumbilical midline incisional), normal bowel sounds, soft, no peritoneal signs. Absent: distended, tenderness - Extremities Exam Extremities exam: Present: normal capillary refill, warm, radial pulses palpable and symetrical. Absent: calf tenderness, cyanotic, pedal edema, tenderness - Expanded Lower Extremities Exam Neuro vascular tendon exam: Present: no vascular compromise, pallor. Absent: extremity cold to touch - Neurological Exam Neurological exam: Present: CN II-XII intact, oriented X3, no focal deficits. Absent: pronater drift, facial droop, speech deficit - Skin Skin exam: Present: dry, intact Internal Med - H&P Results - Labs CBC & Chem 7: 02/20/17 01:22 Labs: BMP 02/20/17 01:22 Sodium 138 Potassium 3.5 Chloride 98 Carbon Dioxide 29 BUN 14 Creatinine 1.54 H Glucose 269 H Calcium 9.0 Liver Function 02/20/17 Range/Units 01:22 Total Bilirubin 0.3 (0.2-1.2) mg/dL AST 36 H (5-34) Units/L ALT 20 (0-55) Units/L Alkaline Phosphatase 76 (38-126) Units/L Albumin 3.0 L (3.5-5.0) g/dL <Andrey Neff - Last Filed: 02/20/17 05:05> Date of Encounter: 02/20/17 Internal Medicine - H&P: HPI History of present illness: Mr. Luna is a 66 year old male All Systems PM: A 10-system review of systems was performed and is negative for pertinent findings except as documented above in the HPI. - Constitutional Vitals: Temp Pulse Resp BP Pulse Ox 97.7 F 109 18 160/101 93 02/20/17 01:23 02/20/17 01:23 02/20/17 04:58 02/20/17 01:23 02/20/17 04:58 Internal Med - H&P Results - Labs CBC & Chem 7: 02/20/17 01:22 Labs: BMP 02/20/17 01:22 Sodium 138 Potassium 3.5 Chloride 98 Carbon Dioxide 29 BUN 14 Creatinine 1.54 H Glucose 269 H Calcium 9.0 Liver Function 02/20/17 Range/Units 01:22 Total Bilirubin 0.3 (0.2-1.2) mg/dL AST 36 H (5-34) Units/L ALT 20 (0-55) Units/L Alkaline Phosphatase 76 (38-126) Units/L Albumin 3.0 L (3.5-5.0) g/dL - Attending Attestation I examined this patient and my medical decision-making was reviewed with the CHIEF CONTRACT OFFICER/PA/Advanced Practice Nurse/Resident Physician. I agree with the documented findings, disposition and treatment plan as described except to the extent set forth below. Due to hypoxia and probably due to pulmonary embolism. Ventilation perfusion scan with moderate prob of pulmonary embolism. Unable to perform CT angio of the chest due to underlying chronic kidney disease. Patient occasionally have a COPD, likely with an exacerbation with bilateral wheezing and shortness of breath. Will give nebulizer treatments and systemic steroids. There is a concern about thrombocytopenia in his prior admission, however platelet count was 79,088 at the MD and i got a verbal report from our lab that the platelet was over 200,000 here. A heparin drip was started by the emergency department staff. We will obtain a d-dimer (likely positive, however if negative would rule out embolic event), venous Doppler of lower extremities, if positive no need for extra workup such as chest CT angiography the chest. Echo to assess right ventricular function. Continue Monitoring the Patient for Signs of Bleeding. Monitor hb q 6 hours. Evaluation by a GastroEnterology Would Be Requested due to Positive Blood in the Stool and recent history of GI bleeding.
[2017-02-20] MEDS: (Doxepin Hcl [Doxepin Hcl] 10 MG) PO SCH ×2 (03:54→20:34)
[2017-02-20] MEDS: MethylPREDNISolone 40 MG/ML VIAL IVP SCH ×3 (04:06→15:45)
[2017-02-20] MEDS: 0.9 % Sodium Chloride 1,000 ML IVC SCH ×2 (04:06→15:41)
[2017-02-20] MEDS: Ipratropium/Albuterol Neb 3 ML IH SCH ×4 (04:58→23:10)
[2017-02-20 05:42] LABS: Basophils % 0.1 %; Hematocrit 35.1 % (37.5-50.1); Hemoglobin 11.3 g/dL (12.9-16.9); Immature Granulocytes % 2.2 % (0-4); Lymphocytes # 0.5 K/mcL (0.6-4.6); Lymphocytes % 6.1 %; Mean Corpuscular HGB Conc 32.2 g/dL (31.6-35.5); Mean Corpuscular Hemoglobin 27.9 pg (28.0-33.3); Mean Corpuscular Volume 86.7 fL (83.0-100.0); Mean Platelet Volume 11.6 fL (9.4-12.4); Monocytes # 0.3 K/mcL (0.0-1.3); Monocytes % 4.1 %; Neutrophils # 6.9 K/mcL (1.6-8.9); Platelet Count 235 K/mcL (140-400); Red Blood Count 4.05 M/mcL (4.19-5.50); Red Cell Distribution Width 14.6 % (11.5-14.5); Segmented Neutrophils % 87.5 %
[2017-02-20] MEDS: *HR* Morphine 2 MG/ML SYRINGE IVP PRN ×2 (06:29→21:48)
--- NOTE | 2017-02-20 11:17 | Event Note ---
<Jatin Damon - Last Filed: 02/20/17 11:44> Date of Encounter: 02/20/17 Time of Encounter: 10:48 Mr. Luna is a 66 year old male with history of CAD, VD, aorto-fem bypass, htn , hld, COPD, and CKD stage 3 who was transferred [place] to [facility] ED with complaint of worsening shortness of breath and pleuritic chest pain for the past couple weeks. Patient also reports history of tobacco use disorder, with cessation 1 week ago. Patient was recently discharged 02/10/17 for gi bleed secondary to colitis. Patient has not been taking his aspirin since discharge and is not on any other anticoagulant. Patient was determined to have Cr > 2 and was therefore transferred for V/Q scan suspecting possible PE. CXR revealed no acute cardiopulmonary process. V/Q scan revealed multiple various sized segmental and subsegmental matched vent-perf defects throughotu both lungs consistent with intermediate probability for pulmonary embolism. EKG from [place] revealed sinus tachycardia with occasional PAC, rate [address] elevation, depression, or t wave inversions. Troponin was 0.03 x2. D-dimer elevate at 1608, BNP 157, Hemoccult positive stool. Aortic US revealed a 3.0 cm ectatic mid abdominal aorta. Exam: Alert and Oriented x3, no acute distress, head atraumatic normocephalic, eyes normal apearance, chest nontender, diffuse wheezing bilaterally, no rales or rhonchi, Heart regular rate and rhythm no murmurs, abdomen periumbilical hernia and midline surgical scar, extremities normal arm no edema, Neuro no facial droop or slurring no focal deficits. A/P: 1. Pulmonary emboli V/Q scan revealed multiple areas suspicious for pulmonary emboli, CTA was unable to be performed due to CKD. 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 D- dimer elevated. PT 14.3, INR 1.3, PTT 38.0 Patient satting at 93% on 3 L nasal cannula. Hemodynamically stable Continue heparin drip, supplemental oxygen nasal cannula, pain control Echo and Lower extremity doppler studies pending 2. COPD Possible exacerbation. Continue duonebs and solumedrol. Switch to oral tomorrow. 3. Dyspnea Likely secondary to Pulmonary emboli vs COPD exacerbation Continue per plans in assessments above. 4. Atypical chest pain EKG revealed sinus tachycardia, rate 113. Troponin x2 0.03 Suspect pleuritic chest pain secondary to PE vs COPD exacerbation. Echo pending 5. Hemoccult Positive Recent admission for gi bleed on 02/11/17 secondary to ischemic colitis. GI note reviewed. Hb 11.3, down from 11.4 on 02/13/17. Consult to GI May consider transfusion if Hb drop below 10. Continue to monitor labs. 5. CAD 6. Hypertension Continue home meds 7. PAD 8. CKD stage 3 Cr 1.54, at baseline. Continue to monitor Hold nephrotoxic agents. 9. Hyperlipidemia 10. Tobacco use disorder 11. PTSD Continue home meds. Doxepin for sleep/mood 12. DVT prophylaxis On heparin drip <Khurram Garcia - Last Filed: 02/20/17 18:06> Date of Encounter: 02/20/17 I examined this patient and my medical decision-making was reviewed with the CORE DRILLER HELPER/PA/Advanced Practice Nurse/Resident Physician. I agree with the documented findings, disposition and treatment plan as described except to the extent set forth below.
[2017-02-20] MEDS: Metoprolol XL (24 HR) Succ 50 MG TAB.ER.24H PO SCH (11:47)
[2017-02-20] MEDS: Pantoprazole 40 MG VIAL IVP SCH (11:47)
--- NOTE | 2017-02-20 12:41 | ECHO - Doppler Report ---
Echocardiogram Name: Donovan Luna Date of Study: 02/20/2017 Date: 1950 Ht: 69.0 in Medical Record#: [id number] Age: 66 Wt: 130.0 lb Gender: Male BSA: 1.72 Order #: [id number] Location: [facility] Room #: 2NE27 Reading Physician: Laureen Phoenix DO Wool Carder: Darshana Carter Ordering Physician: Cherry Limon DO Primary Physician: [facility] Indications: Assess for heart strain multiple PE, Chest pain Impressions: LVEF 60%. Normal left ventricular size and systolic function. There is evidence of mild diastolic dysfunction of the left ventricle. Normal right ventricular size and function. No significant valvular dysfunction. No pulmonary hypertension. Left Ventricular Wall Motion: Rest Echo Findings All wall segments showed normal motion. Findings: Study Quality * Technically sub-optimal due to COPD. ECG Findings * Normal sinus rhythm. Left Ventricle * LVEF 60%. * Normal LV chamber size, wall thickness and function. * Mild left ventricular diastolic dysfunction. Aortic Valve * No aortic regurgitation. * Aortic valve not well visualized. * No aortic stenosis. Mitral Valve * No mitral regurgitation. * Normal mitral valve structure. * No mitral stenosis. Tricuspid Valve * No tricuspid regurgitation. * Normal tricuspid valve structure. * Estimated RA pressure is 3 mmHg. * Estimated RVSP is 16 mmHg. * No pulmonary hypertension. Pulmonic Valve * Pulmonic valve is not well visualized. * No pulmonic stenosis. * No pulmonic regurgitation. Pulmonary Artery * Pulmonary artery not well visualized. Right Ventricle * Normal right ventricular structure and function. Left Atrium * Normal left atrial size. Right Atrium * Normal right atrial size. Pericardium * There is no pericardial effusion present. IVC * Normal IVC dimensions and inspiratory collapse. Interatrial Septum * Interatrial septum not well evaluated. Aorta * Not well visualized. History Hypertension Hypercholesteremia History of Smoking Years 50 Packs 1.5 Measurements: BP: 137/ 89 2D Normal Values IVSd: .90 cm 0.6 - 1.0 cm LVIDd: 4.50 cm 3.7 - 5.6 cm LVPWd: .90 cm 0.6 - 1.1 cm LVIDs: 3.20 cm 1.5 - 3.6 cm AO: 2.60 cm < 4.0 cm LA: 3.90 cm 2.0 - 4.0cm %FS: 28.90 cm >25 % LA volume: 20 Mitral Valve Peak E:.76 m/sec Peak A:1.08 m/sec E/A Ratio:0.7 Peak E' Lat Zaheer:6.14 cm/s Peak E' Med Zaheer:4.68 cm/s E/E' Lat Ratio:12.3 E/E' Med Ratio:16.1 Tricuspid Valve TV Regurg Peak Grad: 13.00mmHg TV Regurg Peak Zaheer: 1.78m/sec Updated by Laureen Phoenix on 02/20/2017 12:36:34 PM electronically signed on 02/20/2017 12:37:15 PM with status of Final Wall Motion Gomez: 1=Normal, 2=Hypokinesis, 3=Akinesis, 4=Dyskinesis, 5=Aneurysmal, 6=Hyperkinetic, X=Not Visualized (Blank)=Missing
[2017-02-20 16:19] LABS: Hematocrit 33.5 % (37.5-50.1); Hemoglobin 10.9 g/dL (12.9-16.9)
[2017-02-21] MEDS: MethylPREDNISolone 40 MG/ML VIAL IVP SCH ×3 (00:13→16:14)
[2017-02-21] MEDS: Heparin 25,000 UNIT/500 ML D5W 25,000 UNIT/500 ML MLS IVC SCH ×2 (00:14→22:46)
[2017-02-21] MEDS: 0.9 % Sodium Chloride 1,000 ML IVC SCH ×2 (02:05→13:45)
[2017-02-21 04:15] LABS: Basophils % 0.1 %; Hematocrit 32.5 % (37.5-50.1); Hemoglobin 10.7 g/dL (12.9-16.9); Immature Granulocytes % 1.4 % (0-4); Lymphocytes # 0.8 K/mcL (0.6-4.6); Lymphocytes % 4.7 %; Mean Corpuscular HGB Conc 32.9 g/dL (31.6-35.5); Mean Corpuscular Hemoglobin 29.1 pg (28.0-33.3); Mean Corpuscular Volume 88.3 fL (83.0-100.0); Mean Platelet Volume 12.4 fL (9.4-12.4); Monocytes # 0.6 K/mcL (0.0-1.3); Monocytes % 3.6 %; Neutrophils # 15.4 K/mcL (1.6-8.9); Platelet Count 223 K/mcL (140-400); Red Blood Count 3.68 M/mcL (4.19-5.50); Red Cell Distribution Width 15.1 % (11.5-14.5); Segmented Neutrophils % 90.2 %
[2017-02-21 04:22] LABS: INR 1.1; Prothrombin Time 12.3 Seconds (9.4-12.1)
[2017-02-21 04:24] LABS: Activated Partial Thrombo Time 68.4 Seconds (26.0-36.0)
[2017-02-21 04:27] LABS: BUN/Creatinine Ratio 18 (6-26); Blood Urea Nitrogen 21 mg/dL (8-26); Calcium 8.5 mg/dL (8.6-10.8); Carbon Dioxide 27 mEq/L (19-29); Chloride 104 mEq/L (98-109); Glucose 146 mg/dL (70-99); Osmolality,Calculated 298 (280-300); Sodium 141 mEq/L (136-145); eGFR For African Americans > 60 (> 60); eGFR For Non-African Americans > 60 (> 60)
[2017-02-21] MEDS: Ipratropium/Albuterol Neb 3 ML IH SCH ×4 (04:30→23:32)
--- NOTE | 2017-02-21 08:54 | Internal Med Progress Note ---
<Jatin Damon - Last Filed: 02/21/17 15:54> Date of Encounter: 02/21/17 Time of Encounter: 08:52 - Assessment and plan (1) Pulmonary emboli Current Visit: Yes Status: Acute Assessment and plan: V/Q scan revealed multiple areas suspicious for pulmonary emboli, CTA was unable to be performed due to CKD. CTA not ordered despite improved kidney function back to baseline, will not roving changer in this patient. CXR revealed no acute cardiopulmonary process. EKG revealed sinus tachycardia with occasional PAC, rate 113. Troponin 0.03 x2. D-dimer elevated. PT 12.3, INR 1.1, PTT 68.4 Aortic US revealed a 3.0 cm ectatic mid abdominal aorta. Echo revealed LVEF 60%, otherwise essentially normal Preliminary bilateral lower extremity doppler exam negative for dvt or svt bilaterally. Patient satting at 95% on 2.5 L, decreased requirement from yesterday Hemodynamically stable. Continue heparin drip d2, supplemental oxygen nasal cannula, pain control. Hematology consult tomorrow. Qualifiers: Pulmonary embolism type: other Chronicity: acute Acute cor pulmonale presence: without acute cor pulmonale Qualified Code(s): I26.99 - Other pulmonary embolism without acute cor pulmonale (2) COPD (chronic obstructive pulmonary disease) Current Visit: Yes Status: Chronic Assessment and plan: No acute exacerbation. WBC elevated at 17.1, from 7.9 yesterday. Discontinue steroids. Continue duonebs. Qualifiers: COPD type: unspecified COPD Qualified Code(s): J44.9 - Chronic obstructive pulmonary disease, unspecified (3) Atypical chest pain Current Visit: Yes Status: Acute Assessment and plan: EKG revealed sinus tachycardia, rate 113. Troponin x2 0.03 Suspect pleuritic chest pain secondary to PE. Echo revealed LVEF 66=0%, otherwise essentially normal. (4) GI bleeding Current Visit: Yes Status: Acute Assessment and plan: Recent admission for gi bleed on 02/11/17 secondary to ischemic colitis. GI note reviewed. Hb 10.7, down from 11.3 yesterday. GI consulted, recommended conservative management and observation at this time. May consider transfusion if Hb drops below 10. Continue to monitor labs. Qualifiers: GI bleed type/associated pathology: unspecified gastrointestinal hemorrhage type Qualified Code(s): K92.2 - Gastrointestinal hemorrhage, unspecified (5) Leukocytosis Current Visit: Yes Status: Acute Assessment and plan: WBC 17.1 this morning, increased from 7.9 yesterday. Neutrophils 15.4 this morning, increased from 6.9 yesterday. CXR was negative for cardiopulmonary processes on arrival V/Q revealed multiple pulmonary emboli Patient is afebrile and nontachycardic. Likely elevated secondary to solumedrol administration for possible COPD exac on arrival. Discontinued solumedrol due to unlikely COPD exac. Qualifiers: Leukocytosis type: bandemia Qualified Code(s): D72.825 - Bandemia (6) CAD (coronary artery disease) Current Visit: Yes Status: Chronic Qualifiers: Coronary Disease-Associated Artery/Lesion type: unspecified vessel or lesion type [place] vs. transplanted heart: unspecified whether [place] or transplanted heart Associated angina: angina presence unspecified Qualified Code(s): I25.10 - Atherosclerotic heart disease of [place] coronary artery without angina pectoris (7) HTN (hypertension) Current Visit: Yes Status: Chronic Assessment and plan: Bp 151/77 Continue home medications for chronic disease management. Qualifiers: Hypertension type: essential hypertension Qualified Code(s): I10 - Essential (primary) hypertension (8) PAD (peripheral artery disease) Current Visit: Yes Status: Chronic Assessment and plan: History of aorto-fem bypass. Patient has not been on aspirin since last admission and used to be on plavix, but was discontinued from [place] due to cost. Continue heparin drip. Will need to consider anticoagulation options prior to discharge. (9) CKD (chronic kidney disease), stage III Current Visit: Yes Status: Chronic Assessment and plan: At baseline. Cr 1.54 on arrival to ED. Initially elevated Cr >2.0 at [place] prior to transfer, therefore unable to get Chest CTA. Cr 1.20 today. Continue monitoring. Hold nephrotoxic agents. (10) HLD (hyperlipidemia) Current Visit: Yes Status: Chronic Qualifiers: Hyperlipidemia type: unspecified Qualified Code(s): E78.5 - Hyperlipidemia , unspecified (11) Tobacco use disorder, moderate, in early remission, dependence Current Visit: Yes Status: Acute (12) PTSD (post-traumatic stress disorder) Current Visit: Yes Status: Chronic Assessment and plan: Doxepin 10mg not on formulary, closest is 25mg. Hold medication due to nonformulary, patient unable to get home medications. (13) DVT prophylaxis Current Visit: Yes Status: Acute Assessment and plan: On heparin drip. - Subjective Interval history: Patient reports doing well overnight. Patient continues to reports shortness of breath, but improving. Denies fevers, chills, sweats, headaches, nausea, vomiting, chest pain, abdominal pain, changes in bowels or bladder, weakness, or loss of sensation. Patient tolerated diet overnight. Discussed results of testing with patient. Patient concerned about what medications he can take to prevent clot formation. - Constitutional Vitals: Temp Pulse Resp BP Pulse Ox 97.3 F L 61 15 151/77 95 02/21/17 07:00 02/21/17 07:00 02/21/17 07:00 02/21/17 07:00 02/21/17 07:00 General appearance: Present: cachectic, cooperative, A&O X 3, pleasant, no acute distress, answers questions appropriately - Head Head exam: Present: atraumatic, normal inspection, normocephalic - Eye Eye exam: Present: normal appearance - ENT ENT exam: Present: mucous membranes moist, normal exam, normal external ear exam , normal oropharynx - Neck Neck exam general surgery: Present: full ROM, normal inspection, supple, trachea midline. Absent: tenderness - Respiratory Respiratory exam: Present: rhonchi, wheezes (diffuse expiratory, mild rhonchi upper lobes). Absent: chest wall tenderness, rales, respiratory distress, stridor, tachypnea - Cardiovascular Cardiovascular exam: Present: RRR, +S1, +S2. Absent: diastolic murmur, JVD, systolic murmur - GI/Abdominal GI/Abdominal exam: Present: normal bowel sounds, soft. Absent: distended, guarding, tenderness Additional comments: midline hernia, surgical scar noted - Extremities Exam Extremities exam: Present: full ROM, normal inspection, warm. Absent: pedal edema, tenderness - Neurological Exam Neurological exam: Present: alert, oriented X3, no focal deficits, strengths equal and symetr throughout. Absent: facial droop, speech deficit - Psychiatric Psychiatric exam: Present: normal affect, normal mood - Skin Skin exam: Present: dry, intact, normal color, warm. Absent: diaphoretic, erythema, pallor Internal Medicine: Result - Labs CBC & Chem 7: 02/21/17 03:37 02/21/17 03:37 Labs: Short CBC 02/20/17 02/21/17 Range/Units 16:12 03:37 WBC 17.1 H D (4.3-11.1) K/mcL Hgb 10.9 L 10.7 L (12.9-16.9) g/dL Hct 33.5 L 32.5 L (37.5-50.1) % Plt Count 223 (140-400) K/mcL Neutrophils # 15.4 H (1.6-8.9) K/mcL BMP 02/21/17 03:37 Sodium 141 Potassium 4.0 Chloride 104 Carbon Dioxide 27 BUN 21 Creatinine 1.20 Glucose 146 H Calcium 8.5 L - ABG Interpretation ABG results: PT/INR, D-dimer PT 12.3 Seconds (9.4-12.1) H 02/21/17 03:37 D-Dimer 1608 ng/mLFEU (0-500) H 02/20/17 05:22 - Impressions Impressions Aorta Ultrasound 02/20/17 09:00 IMPRESSION: 1. 3.0 cm ectatic mid abdominal aorta. Recommend CTA of the abdomen in 5 years. RECOMMENDATIONS: Managing Abdominal Aortic Aneurysms 2.6-2.9 cm: 5 year follow up. Reference: Oma et al. The care of patients with an abdominal aortic aneurysm: The Society of Vascular Surgery practice guidelines. Journal of Vascular Surgery. Vol 50, Number 85. Carson et al. Managing Incidental Findings on Abdominal and Pelvic CT and MRI, Part 2: White Paper of the ACR Incidental Findings Committee II on Vascular Findings. J Am Nataly Radiol 2013;10:789-794 D/ / Herbert Arreguin MD / Herbert Arreguin MD Interpreting Provider: Herbert Arreguin MD Consult Discharge Plan - Plan Referrals: [facility] [Primary Care Provider] - <Khurram Garcia P - Last Filed: 02/21/17 16:33> Date of Encounter: 02/21/17 - Constitutional Vitals: Temp Pulse Resp BP Pulse Ox 98.2 F 66 17 156/79 95 02/21/17 15:00 02/21/17 15:00 02/21/17 15:00 02/21/17 15:00 02/21/17 15:00 Internal Medicine: Result - Labs CBC & Chem 7: 02/21/17 03:37 02/21/17 03:37 Labs: Short CBC 02/21/17 Range/Units 03:37 WBC 17.1 H D (4.3-11.1) K/mcL Hgb 10.7 L (12.9-16.9) g/dL Hct 32.5 L (37.5-50.1) % Plt Count 223 (140-400) K/mcL Neutrophils # 15.4 H (1.6-8.9) K/mcL BMP 02/21/17 03:37 Sodium 141 Potassium 4.0 Chloride 104 Carbon Dioxide 27 BUN 21 Creatinine 1.20 Glucose 146 H Calcium 8.5 L Urine 02/21/17 Range/Units 13:35 Urine Color Yellow (Yellow) Urine Clarity Clear (Clear) Urine pH 6.0 (5.0-8.0) pH Units Ur Specific [place] 1.012 (1.010-1.025) Urine Protein Negative (Neg-Trace) mg/dL Urine Glucose (UA) Normal (Normal) mg/dL - ABG Interpretation ABG results: PT/INR, D-dimer PT 12.3 Seconds (9.4-12.1) H 02/21/17 03:37 D-Dimer 1608 ng/mLFEU (0-500) H 02/20/17 05:22 - Attending Attestation I examined this patient and my medical decision-making was reviewed with the TAILER OFF/PA/Advanced Practice Nurse/Resident Physician. I agree with the documented findings, disposition and treatment plan as described except to the extent set forth below.
[2017-02-21] MEDS: Pantoprazole 40 MG VIAL IVP SCH (09:34)
[2017-02-21] MEDS: Metoprolol XL (24 HR) Succ 50 MG TAB.ER.24H PO SCH (09:34)
--- NOTE | 2017-02-21 10:49 | Electrocardiograph Report ---
[address] [address] Test Date: 2017-02-19 Pat Name: Donovan Luna Department: 104 Room: 2N7 Gender: M Assisted Living Coordinator: EC : 1950 Requested By: Dg Kraus Order Number: [id number] Reading MD: Rob Abebe MD Measurements Intervals [place] Rate: 94 P: 86 SC: 137 QRS: 75 QRSD: 100 T: 82 QT: 356 QTc: 408 Interpretive Statements SINUS RHYTHM Electronically Signed On 02-21-2017 10:47:22 EDT by Rob Abebe MD
[2017-02-21 13:53] LABS: Bilirubin,Urine Negative (Negative); Blood,Urine Negative (Negative); Clarity,Urine Clear (Clear); Color,Urine Yellow (Yellow); Glucose,Urine (UA) Normal (Normal); Ketones,Urine Negative (Negative); Leukocyte Esterase,Urine Negative (Negative); Nitrite,Urine Negative (Negative); Protein,Urine Negative (Neg-Trace); Specific Gravity,Urine 1.012 (1.010-1.025); Urobilinogen,Urine Normal (Normal)
[2017-02-21] MEDS: *HR* Morphine 2 MG/ML SYRINGE IVP PRN ×2 (18:41→22:54)
[2017-02-21] MEDS: (Doxepin Hcl [Doxepin Hcl] 10 MG) PO SCH (21:40)
[2017-02-22] MEDS: MethylPREDNISolone 40 MG/ML VIAL IVP SCH ×4 (00:05→23:26)
[2017-02-22] MEDS: 0.9 % Sodium Chloride 1,000 ML IVC SCH ×3 (00:31→22:10)
[2017-02-22 03:59] LABS: Basophils % 0.1 %; Hemoglobin 9.7 g/dL (12.9-16.9); Immature Granulocytes % 2.1 % (0-4); Lymphocytes # 0.5 K/mcL (0.6-4.6); Lymphocytes % 3.9 %; Mean Corpuscular HGB Conc 31.3 g/dL (31.6-35.5); Mean Corpuscular Volume 89.3 fL (83.0-100.0); Mean Platelet Volume 12.2 fL (9.4-12.4); Monocytes # 0.4 K/mcL (0.0-1.3); Monocytes % 3.1 %; Neutrophils # 12.7 K/mcL (1.6-8.9); Platelet Count 214 K/mcL (140-400); Red Blood Count 3.47 M/mcL (4.19-5.50); Segmented Neutrophils % 90.8 %
[2017-02-22 04:05] LABS: Prothrombin Time 11.2 Seconds (9.4-12.1)
[2017-02-22 04:08] LABS: Activated Partial Thrombo Time 63.8 Seconds (26.0-36.0)
[2017-02-22 04:12] LABS: BUN/Creatinine Ratio 22 (6-26); Blood Urea Nitrogen 24 mg/dL (8-26); Calcium 8.3 mg/dL (8.6-10.8); Carbon Dioxide 23 mEq/L (19-29); Chloride 107 mEq/L (98-109); Glucose 144 mg/dL (70-99); Osmolality,Calculated 295 (280-300); Sodium 139 mEq/L (136-145); eGFR For African Americans > 60 (> 60); eGFR For Non-African Americans > 60 (> 60)
[2017-02-22] MEDS: *HR* Morphine 2 MG/ML SYRINGE IVP PRN ×4 (04:23→23:29)
[2017-02-22] MEDS: Ipratropium/Albuterol Neb 3 ML IH SCH ×4 (04:53→21:39)
[2017-02-22] MEDS: Metoprolol XL (24 HR) Succ 50 MG TAB.ER.24H PO SCH (08:25)
[2017-02-22] MEDS: Pantoprazole 40 MG VIAL IVP SCH (08:26)
--- NOTE | 2017-02-22 09:48 | Internal Med Progress Note ---
<Jatin Damon - Last Filed: 02/22/17 10:05> Date of Encounter: 02/22/17 Time of Encounter: 09:46 - Assessment and plan (1) Pulmonary emboli Current Visit: Yes Status: Acute Assessment and plan: V/Q scan revealed multiple areas suspicious for pulmonary emboli, CTA was unable to be performed due to CKD. CTA not ordered despite improved kidney function back to baseline, will not roving changer in this patient. CXR revealed no acute cardiopulmonary process. EKG revealed sinus tachycardia with occasional PAC, rate 113. Troponin 0.03 x2. D-dimer elevated. PT 11.2, INR 1.0, PTT 63.8 Aortic US revealed a 3.0 cm ectatic mid abdominal aorta. Echo revealed LVEF 60%, otherwise essentially normal Preliminary bilateral lower extremity doppler exam negative for dvt or svt bilaterally. Patient satting at 96% on 3.0 L, mildly increased requirement from yesterday Hemodynamically stable. Continue heparin drip d3, supplemental oxygen nasal cannula, pain control. Hematology consulted Qualifiers: Pulmonary embolism type: other Chronicity: acute Acute cor pulmonale presence: without acute cor pulmonale Qualified Code(s): I26.99 - Other pulmonary embolism without acute cor pulmonale (2) COPD (chronic obstructive pulmonary disease) Current Visit: Yes Status: Chronic Assessment and plan: No acute exacerbation. WBC decreased from 14.0, from 17.1 yesterday. Discontinue steroids. Continue duonebs. Qualifiers: COPD type: unspecified COPD Qualified Code(s): J44.9 - Chronic obstructive pulmonary disease, unspecified (3) Atypical chest pain Current Visit: Yes Status: Acute Assessment and plan: EKG revealed sinus tachycardia, rate 113. Troponin x2 0.03 Suspect pleuritic chest pain secondary to PE. Echo revealed LVEF 66=0%, otherwise essentially normal. (4) GI bleeding Current Visit: Yes Status: Acute Assessment and plan: Recent admission for gi bleed on 02/11/17 secondary to ischemic colitis. GI note reviewed. Hb 9.7, down from 10.7 yesterday. GI consulted, recommended conservative management and observation at this time. May consider transfusion if Hb drops below 10. Continue to monitor labs. Qualifiers: GI bleed type/associated pathology: unspecified gastrointestinal hemorrhage type Qualified Code(s): K92.2 - Gastrointestinal hemorrhage, unspecified (5) Leukocytosis Current Visit: Yes Status: Acute Assessment and plan: WBC 14.0 this morning, decreased from 17.1 yesterday. CXR was negative for cardiopulmonary processes on arrival V/Q revealed multiple pulmonary emboli Patient is afebrile and nontachycardic. Likely elevated secondary to solumedrol administration for possible COPD exac on arrival. Discontinued solumedrol due to unlikely COPD exac. Qualifiers: Leukocytosis type: bandemia Qualified Code(s): D72.825 - Bandemia (6) CAD (coronary artery disease) Current Visit: Yes Status: Chronic Qualifiers: Coronary Disease-Associated Artery/Lesion type: unspecified vessel or lesion type [place] vs. transplanted heart: unspecified whether [place]ht[place] or transplanted heart Associated angina: angina presence unspecified Qualified Code(s): I25.10 - Atherosclerotic heart disease of [place] coronary artery without angina pectoris (7) HTN (hypertension) Current Visit: Yes Status: Chronic Assessment and plan: Bp 161/85 Continue home medications for chronic disease management, Metoprolol XL 50mg. Start losartan low dose, may increase tomorrow if tolerates. Qualifiers: Hypertension type: essential hypertension Qualified Code(s): I10 - Essential (primary) hypertension (8) PAD (peripheral artery disease) Current Visit: Yes Status: Chronic Assessment and plan: History of aorto-fem bypass. Patient has not been on aspirin since last admission and used to be on plavix, but was discontinued from [place] due to cost. Continue heparin drip. Will need to consider anticoagulation options prior to discharge. (9) CKD (chronic kidney disease), stage III Current Visit: Yes Status: Chronic Assessment and plan: At baseline. Cr 1.54 on arrival to ED. Initially elevated Cr >2.0 at [facility] prior to transfer, therefore unable to get Chest CTA. Cr 1.10 today. Continue monitoring. Hold nephrotoxic agents. (10) HLD (hyperlipidemia) Current Visit: Yes Status: Chronic Qualifiers: Hyperlipidemia type: unspecified Qualified Code(s): E78.5 - Hyperlipidemia , unspecified (11) Tobacco use disorder, moderate, in early remission, dependence Current Visit: Yes Status: Acute (12) PTSD (post-traumatic stress disorder) Current Visit: Yes Status: Chronic Assessment and plan: Doxepin 10mg not on formulary, closest is 25mg. Hold medication due to nonformulary, patient unable to get home medications. (13) DVT prophylaxis Current Visit: Yes Status: Acute Assessment and plan: On heparin drip. - Subjective Interval history: Patient reports doing well overnight, shortness of breath but continued improvement. Denies fevers, chills, sweats, headaches, nausea, vomiting, chest pain, abdominal pain, changes in bowels or bladder, weakness, or loss of sensation. Patient tolerated diet overnight. Discussed with patient the plan for today, plan to have Hematology make recommendations. - Constitutional Vitals: Temp Pulse Resp BP Pulse Ox 97.5 F L 77 18 161/85 96 02/22/17 08:19 02/22/17 08:19 02/22/17 08:19 02/22/17 08:19 02/22/17 08:19 General appearance: Present: cachectic, cooperative, A&O X 3, pleasant, no acute distress, answers questions appropriately - Head Head exam: Present: atraumatic, normal inspection, normocephalic - Eye Eye exam: Present: normal appearance - ENT ENT exam: Present: mucous membranes moist, normal exam, normal external ear exam , normal oropharynx - Neck Neck exam general surgery: Present: full ROM, normal inspection, supple, trachea midline. Absent: tenderness - Respiratory Respiratory exam: Present: rhonchi, wheezes. Absent: rales - Cardiovascular Cardiovascular exam: Present: RRR, +S1, +S2. Absent: diastolic murmur, JVD, systolic murmur - GI/Abdominal GI/Abdominal exam: Present: normal bowel sounds, soft. Absent: distended, guarding, tenderness - Extremities Exam Extremities exam: Present: full ROM, normal inspection, warm. Absent: pedal edema, tenderness - Neurological Exam Neurological exam: Present: alert, oriented X3, no focal deficits, strengths equal and symetr throughout. Absent: facial droop, speech deficit - Psychiatric Psychiatric exam: Present: anxious - Skin Skin exam: Present: dry, intact, normal color, warm. Absent: diaphoretic, erythema, pallor Internal Medicine: Result - Labs CBC & Chem 7: 02/22/17 03:40 02/22/17 03:40 Labs: Short CBC 02/22/17 Range/Units 03:40 WBC 14.0 H (4.3-11.1) K/mcL Hgb 9.7 L (12.9-16.9) g/dL Hct 31.0 L (37.5-50.1) % Plt Count 214 (140-400) K/mcL Neutrophils # 12.7 H (1.6-8.9) K/mcL BMP 02/22/17 03:40 Sodium 139 Potassium 4.0 Chloride 107 Carbon Dioxide 23 BUN 24 Creatinine 1.10 Glucose 144 H Calcium 8.3 L Urine 02/21/17 Range/Units 13:35 Urine Color Yellow (Yellow) Urine Clarity Clear (Clear) Urine pH 6.0 (5.0-8.0) pH Units Ur Specific [place] 1.012 (1.010-1.025) Urine Protein Negative (Neg-Trace) mg/dL Urine Glucose (UA) Normal (Normal) mg/dL - ABG Interpretation ABG results: PT/INR, D-dimer PT 11.2 Seconds (9.4-12.1) 02/22/17 03:40 D-Dimer 1608 ng/mLFEU (0-500) H 02/20/17 05:22 Consult Discharge Plan - Plan [facility]errals: [facility]Primary Care Provider[facility] - <Khurram Garcia P - Last Filed: 02/22/17 16:55> Date of Encounter: 02/22/17 - Constitutional Vitals: Temp Pulse Resp BP Pulse Ox 98.2 F 68 16 162/79 92 02/22/17 13:17 02/22/17 15:05 02/22/17 15:55 02/22/17 15:05 02/22/17 15:55 Internal Medicine: Result - Labs CBC & Chem 7: 02/22/17 03:40 02/22/17 03:40 Labs: Short CBC 02/22/17 Range/Units 03:40 WBC 14.0 H (4.3-11.1) K/mcL Hgb 9.7 L (12.9-16.9) g/dL Hct 31.0 L (37.5-50.1) % Plt Count 214 (140-400) K/mcL Neutrophils # 12.7 H (1.6-8.9) K/mcL BMP 02/22/17 03:40 Sodium 139 Potassium 4.0 Chloride 107 Carbon Dioxide 23 BUN 24 Creatinine 1.10 Glucose 144 H Calcium 8.3 L - ABG Interpretation ABG results: PT/INR, D-dimer PT 11.2 Seconds (9.4-12.1) 02/22/17 03:40 D-Dimer 1608 ng/mLFEU (0-500) H 02/20/17 05:22 - Attending Attestation I examined this patient and my medical decision-making was reviewed with the POSTAL SERVICE WINDOW CLERK/PA/Advanced Practice Nurse/Resident Physician. I agree with the documented findings, disposition and treatment plan as described except to the extent set forth below.
--- NOTE | 2017-02-22 13:04 | Venous Imaging Report ---
LE Venous Duplex Patient Name:Donovan Luna Order Number:[id number] Procedure Date:02/20/2017 Date:1950ge:66 yrs Gender:Male Location:[facility] Room #: 2NE27 Traffic Analyst:Darshana Carter Referring MD:Cherry Limon DO lion trainer:[facility] Reading MD:Jan Ramirez MD , FACS Primary Indications:PE Secondary Indications: Impressions: Bilateral lower extremity: normal superficial and deep exam. Recommendations: After imaging the patient returned to their room. Findings Prior Study: No prior study available for comparison. Lower Extremity Venous Duplex Side Vein Compress Spontaneous Flow Augment Diameter (cm) Depth (cm) Right Distal Iliac Normal Yes Phasic Yes Right Common Femoral Normal Yes Phasic Yes Right Superficial Femoral Normal Yes Phasic Yes Right Popliteal Normal Yes Phasic Yes Right Posterior Tibial Normal Yes Phasic Yes Right Peroneal Normal Yes Phasic Yes Right Gastrocnemius Normal Yes Phasic Yes Right Saphenofemoral [place] Normal Yes Phasic Yes Right Great Saphenous Normal Yes Phasic Yes Right Great Saphenous [place] Normal Yes Phasic Yes Right Great Saphenous BK Normal Yes Phasic Yes Right Lesser Saphenous Normal Yes Phasic Yes Left Distal Iliac Normal Yes Phasic Yes Left Common Femoral Normal Yes Phasic Yes Left Superficial Femoral Normal Yes Phasic Yes Left Popliteal Normal Yes Phasic Yes Left Posterior Tibial Normal Yes Phasic Yes Left Peroneal Normal Yes Phasic Yes Left Gastrocnemius Normal Yes Phasic Yes Left Saphenofemoral [place] Normal Yes Phasic Yes Left Great Saphenous Normal Yes Phasic Yes Left Great Saphenous [place] Normal Yes Phasic Yes Left Great Saphenous BK Normal Yes Phasic Yes Left Lesser Saphenous Normal Yes Phasic Yes Updated by Jan Ramirez MD, FACS on 02/22/2017 1:00:18 PM Jan Ramirez MD electronically signed on 02/22/2017 1:00:48 PM with status of Final
--- NOTE | 2017-02-22 14:07 | Gastroenterology Consult Note ---
<WoodMandeep Ramona - Last Filed: 02/22/17 14:07> Date of Encounter: 02/22/17 Time of Encounter: 10:25 - Assessment and plan (1) GI bleeding Current Visit: Yes Status: Acute Assessment and plan: Pt was recently admitted for GI bleeding that was secondary to ischemic colitis. No active bleeding at this time. Plan for outpatient colonoscopy in the next 3-5 weeks. Qualifiers: GI bleed type/associated pathology: unspecified gastrointestinal hemorrhage type Qualified Code(s): K92.2 - Gastrointestinal hemorrhage, unspecified (2) Bilateral pulmonary embolism Current Visit: Yes Status: Acute Assessment and plan: Management per primary team. (3) Anemia Current Visit: Yes Status: Acute Assessment and plan: Continue to monitor CBC and transfuse PRBC as needed. No active bleeding noted. Qualifiers: Qualified Code(s): D64.9 - Anemia, unspecified - Time Spent With Patient Total time spent is greater than 50% in coordination of care (as documented) at patient's floor/unit and/or counseling patient: GI History of Present Illness - Data of Consult Patient: known to practice within the last 3 years Consult date: 02/22/17 Requesting Physician: Khurram Garcia MD - Consult Narrative Reason for consult: Recent GI Bleed History of present illness: Mr. Luna is a 66 year old male with PMHx of COPD, HLD, HTN, PAD, and AAA who was admitted recently (02/10/17) with GI bleeding likely secondary to ischemic colitis. Plan at that time was to complete colonoscopy in 4-6 weeks as outpatient. He presented to the ED due to SOB and chest pain. VQ scan shows multiple various sized segmental and subsegmental matched ventilation perfusion defects throughout both lungs consistent with intermediate probability for pulmonary embolism. D-dimer was elevated to 1608. CTA was unable to be performed due to CKD. Patient was started on heparin drip. On 02/11 Hgb 13, today Hgb 9.7. Patient denies any melena or BRBPR. Procedures: None reported NSAIDs: None Anticoagulation: None Past Med Surg Social Fam HX - Past Medical History Medical history: COPD, hyperlipidemia, hypertension, peripheral artery disease Psychiatric history: anxiety, depression, PTSD - Past Surgical History Surgical History: herniorrhaphy, LE Bypass, LE stent(s), LE vascular intervention, vascular surgery - Social History Smoking Status: Current every day smoker Packs per day: 1-2ppdx 45 years Smokeless Tobacco Status: No Alcohol use: none Drug use: none - Gastrointestinal Gastrointestinal: Present: as per HPI - Constitutional Constitutional: as per HPI - EENT Eyes: as per HPI Ears: Present: as per HPI Nose, mouth and throat: Present: as per HPI - Cardiovascular Cardiovascular ROS: Present: as per HPI - Respiratory Respiratory IM: Present: as per HPI - Genitourinary Genitourinary: Absent: change in color, Urinary frequency - Neurological ROS Neurological GI: Present: as per HPI - Hematologic/Lymphatic Hematologic/Lymphatic pediatric: Present: as per HPI - Musculoskeletal Musculoskeletal ROS GI: Present: as per HPI - Integumentary Integumentary GI: Present: as per HPI - Psychiatric ROS Psychiatric GI: Present: as per HPI - Endocrine Endocrine IM: Present: as per HPI - Constitutional Vitals: Temp Pulse Resp BP Pulse Ox 98.2 F 77 18 173/80 95 02/22/17 13:17 02/22/17 13:17 02/22/17 13:17 02/22/17 13:17 02/22/17 13:17 General appearance: Present: cooperative, mild distress, A&O X 3, answers questions appropriately - Head Head exam: Present: atraumatic, normocephalic - Eye Eye exam: Present: normal appearance, sclera anicteric - ENT ENT exam: Present: mucous membranes dry - Neck Neck exam general surgery: Present: normal inspection, trachea midline - Respiratory Respiratory exam: Present: decreased breath sounds, rhonchi - Cardiovascular Cardiovascular exam: Present: RRR, +S1, +S2 - GI/Abdominal GI/Abdominal exam: Present: soft, no peritoneal signs. Absent: distended, firm , guarding, tenderness - Rectal Rectal exam: Present: deferred - Extremities Exam Extremities exam: Present: warm - Neurological Exam Neurological exam: Present: no focal deficits - Psychiatric Psychiatric exam: Present: normal affect, normal mood - Skin Skin exam: Present: dry, intact, normal color, warm Results - Labs CBC & Chem 7: 02/22/17 03:40 02/22/17 03:40 Labs: Last Result Calcium 8.3 mg/dL (8.6-10.8) L 02/22/17 03:40 Troponin I 0.03 ng/mL (0-0.03) 02/20/17 05:22 Stool Occult Blood Positive (Negative) A 02/19/17 23:36 Entire Visit Hgb 9.7 g/dL (12.9-16.9) L 02/22/17 03:40 Hct 31.0 % (37.5-50.1) L 02/22/17 03:40 PT 11.2 Seconds (9.4-12.1) 02/22/17 03:40 Total Bilirubin 0.3 mg/dL (0.2-1.2) 02/20/17 01:22 AST 36 Units/L (5-34) H 02/20/17 01:22 ALT 20 Units/L (0-55) 02/20/17 01:22 - ABG ABG results: PT/INR, D-dimer PT 11.2 Seconds (9.4-12.1) 02/22/17 03:40 D-Dimer 1608 ng/mLFEU (0-500) H 02/20/17 05:22 Consult Discharge Plan - Plan [facility]errals: [facility] [Primary Care Provider] - <Chaz English - Last Filed: 02/22/17 18:39> Date of Encounter: 02/22/17 Time of Encounter: 18:00 - Time Spent With Patient Total time spent is greater than 50% in coordination of care (as documented) at patient's floor/unit and/or counseling patient: GI History of Present Illness - Data of Consult Requesting Physician: Khurram Garcia MD - Consult Narrative History of present illness: Mr. Luna is a 66 year old male - Constitutional Vitals: Temp Pulse Resp BP Pulse Ox 98.2 F 68 16 162/79 92 02/22/17 13:17 02/22/17 15:05 02/22/17 15:55 02/22/17 15:05 02/22/17 15:55 Results - Labs CBC & Chem 7: 02/22/17 03:40 02/22/17 03:40 Labs: Last Result Calcium 8.3 mg/dL (8.6-10.8) L 02/22/17 03:40 Troponin I 0.03 ng/mL (0-0.03) 02/20/17 05:22 Stool Occult Blood Positive (Negative) A 02/19/17 23:36 Entire Visit Hgb 9.7 g/dL (12.9-16.9) L 02/22/17 03:40 Hct 31.0 % (37.5-50.1) L 02/22/17 03:40 PT 11.2 Seconds (9.4-12.1) 02/22/17 03:40 Total Bilirubin 0.3 mg/dL (0.2-1.2) 02/20/17 01:22 AST 36 Units/L (5-34) H 02/20/17 01:22 ALT 20 Units/L (0-55) 02/20/17 01:22 - ABG ABG results: PT/INR, D-dimer PT 11.2 Seconds (9.4-12.1) 02/22/17 03:40 D-Dimer 1608 ng/mLFEU (0-500) H 02/20/17 05:22 - Attending Attestation I examined this patient and my medical decision-making was reviewed with the QUILL MACHINE TENDER/PA/Advanced Practice Nurse/Resident Physician. I agree with the documented findings, disposition and treatment plan as described except to the extent set forth below. Patient with rectal bleeding due to ischemic colitis no more bleeding at this point. As patient has pul embolism will avoid interrupting the anticoagulation unless there is a significant drop in his hemoglobin and urgent need for endoscopy
--- NOTE | 2017-02-22 16:48 | Oncology Inp Consult Note ---
Addendum entered and electronically signed by Bambi Troy CNP 02/22/17 17:29 : Renal function improved. Creatinine 1.1. Will order CTA chest for further evaluation of PE. Being patient has GI bleeding if CTA positive will consider filter vs anticoagulation. Original Note: <Bambi Troy - Last Filed: 02/22/17 17:02> Date of Encounter: 02/22/17 Time of Encounter: 15:00 Assessment and Plan (1) Bilateral pulmonary embolism Status: Acute Assessment and plan: The patient will be seen by Dr. Wm Hopson for further discussion of treatment plan. - Data of Consult Patient: new to practice Requesting Physician: Khurram Garcia MD Primary Care Provider: [facility]CP [facility] - Consult Narrative Reason for consult: Bilateral pulmonary emboli History of present illness: Mr. Luna is a 66 year old male with a history of COPD, chronic smoker, aorta femoral bypass, AAA, renal disease, hypertension, hyperlipidemia, PAD, anxiety, depression, PTSD and recent GI bleed secondary to colitis was admitted through the [facility] emergency department with increasing shortness of breath. He states his shortness of breath been present for 2 weeks but had gradually gotten worse. He was initially seen at the [facility] and was transferred to [facility] for a VQ scan being that his renal functioning did not allow for CTA. Indicates multiple areas of segmental and subsegmental perfusion deficits. He is currently on heparin drip. He was recently hospitalized [facility] on 02/10/2017 secondary to have any GI bleed. At that time he was taken off ASA. He was seen by Dr. Resendez who planned a colonoscopy in 4-6 weeks as an outpatient. At that time he was found to have colitis. Doppler study of the lower extremities was negative. Stool hemocult positive. Aortic ultrasound indicated 3.0 cm mid abdominal aorta with a recommendation for a CTA of the abdomen in 5 years. Echocardiogram indicated LVEF 60% with mild systolic dysfunction of the left ventricle. He denies family history of blood clots. He denies ever having a blood clot in the past. We are being asked to see the patient secondary to pulmonary embolus and recommendation for anticoagulation. Patient was seen and examined at the bedside. It was very difficult to obtain a past medical history from this patient. Past Med Surg Social Fam HX - Past Medical History Medical history: COPD, hyperlipidemia, hypertension, peripheral artery disease Psychiatric history: anxiety, depression, PTSD - Past Surgical History Surgical History: herniorrhaphy, LE Bypass, LE stent(s), LE vascular intervention, vascular surgery - Social History Smoking Status: Current every day smoker Packs per day: 1-2ppdx 45 years Smokeless Tobacco Status: No Alcohol use: none Drug use: none Medications and Allergies Albuterol Sulfate [Albuterol Inhaler] 2 puff IH Q6H PRN 02/10/17 [History] Doxepin HCl 10 mg PO HS 02/10/17 [History] L. Acidophilus/Pectin, [place] [Acidophilus Probiotic Capsule] 1 cap PO TID 02/10 [History] Metoprolol XL (24 HR) Succ [Toprol Xl] 50 mg PO DAILY 02/10/17 [History] Naproxen [Naprosyn] 500 mg PO BID 02/10/17 [History] HYDROcodone/Acet 5/325 mg [[place] 5-325 mg] 1 tab PO Q8HR PRN #10 tab 02/13/17 [ Rx] Calcium Carbonate/Vitamin D3 [Calcium 1,000 + D3 [place]] 1 tab PO DAILY [History] Cholecalciferol (D-3) [Vitamin D] 1,000 unit PO DAILY 02/20/17 [History] Simvastatin [Zocor] 40 mg PO HS 02/20/17 [History] Allergies gabapentin Allergy (Verified 02/10/17 21:05) See Comments hydrochlorothiazide Allergy (Verified 02/10/17 21:05) See Comments hydroxyzine [From Vistaril] Allergy (Verified 02/10/17 21:05) See Comments Constitutional: Present: as per HPI Respiratory: Present: dyspnea on exertion Gastrointestinal: Present: hematochezia Oncology - Exam - Constitutional Vitals: Temp Pulse Resp BP Pulse Ox 98.2 F 68 16 162/79 92 02/22/17 13:17 02/22/17 15:05 02/22/17 15:55 02/22/17 15:05 02/22/17 15:55 General appearance: no acute distress - Head Head exam: Present: normal inspection, normocephalic - ENT ENT exam: Present: mucous membranes moist - Respiratory Respiratory exam: Present: decreased breath sounds (Bilateral bases), CTAB - Cardiovascular Cardiovascular exam: Present: RRR - GI/Abdominal GI/Abdominal exam: Present: normal bowel sounds, soft (Nontender) - Extremities Exam Extremities exam: Present: normal capillary refill, normal inspection - Neurological Exam Neurological exam: Present: alert, oriented X3 - Psychiatric Psychiatric exam: Present: flat affect Oncology - Results - Labs Labs: Short CBC 02/22/17 Range/Units 03:40 WBC 14.0 H (4.3-11.1) K/mcL Hgb 9.7 L (12.9-16.9) g/dL Hct 31.0 L (37.5-50.1) % Plt Count 214 (140-400) K/mcL Neutrophils # 12.7 H (1.6-8.9) K/mcL BMP 02/22/17 03:40 Sodium 139 Potassium 4.0 Chloride 107 Carbon Dioxide 23 BUN 24 Creatinine 1.10 Glucose 144 H Calcium 8.3 L Consult Discharge Plan - Plan Referrals: [facility] [Primary Care Provider] - 03/02/17 2:30 pm <Marii Hopson - Last Filed: 02/23/17 19:21> Date of Encounter: 02/23/17 - Data of Consult Requesting Physician: Khurram Garcia MD Primary Care Provider: [facility] - Consult Narrative History of present illness: Mr. Luna is a 66 year old male Oncology - Exam - Constitutional Vitals: Temp Pulse Resp BP Pulse Ox 97.8 F 61 18 169/76 98 02/23/17 15:55 02/23/17 15:55 02/23/17 15:55 02/23/17 15:55 02/23/17 15:55 Oncology - Results - Labs Labs: Short CBC 02/23/17 Range/Units 04:25 WBC 10.5 (4.3-11.1) K/mcL Hgb 10.4 L (12.9-16.9) g/dL Hct 32.3 L (37.5-50.1) % Plt Count 201 (140-400) K/mcL Neutrophils # 9.5 H (1.6-8.9) K/mcL BMP 02/23/17 04:25 Sodium 142 Potassium 3.9 Chloride 107 Carbon Dioxide 25 BUN 23 Creatinine 1.04 Glucose 132 H Calcium 8.3 L - Attending Attestation 1. Elevated d-dimer of 1600. VQ scan showed probable PE. But CT angiogram chest 02/23/2017 no evidence of PE. Bilateral lower axilla T venous Doppler negative for DVT or SVT. Echocardiogram 02/20/2017 showed normal left ventricular and right ventricle function. Ejection fraction 60%. Given anemia and possible GI blood loss would recommend against anticoagulation at this time We will continue to monitor d-dimer closely. If it does not come down may consider some anticoagulation as an outpatient. 2. Anemia with possible GI blood loss. He denied tamiko bleeding per rectum. Agree with GI workup and colonoscopy Ferritin elevated at 1100. Check iron saturation folic acid low at 4.4*Follic acid 1 mg by mouth daily. B12 normal. Also do LDH TSH Camilo' direct. ROSE rheumatoid factor serum protein electrophoresis and light chains. Peripheral smear pathology review
[2017-02-22] MEDS: (Doxepin Hcl [Doxepin Hcl] 10 MG) PO SCH (20:25)
[2017-02-22] MEDS: Heparin 25,000 UNIT/500 ML D5W 25,000 UNIT/500 ML MLS IVC SCH (22:12)
[2017-02-23] MEDS: Ipratropium/Albuterol Neb 3 ML IH SCH ×2 (04:31→08:59)
[2017-02-23 04:49] LABS: Basophils % 0.1 %; Hematocrit 32.3 % (37.5-50.1); Hemoglobin 10.4 g/dL (12.9-16.9); Immature Granulocytes % 2.6 % (0-4); Lymphocytes # 0.5 K/mcL (0.6-4.6); Lymphocytes % 4.5 %; Mean Corpuscular HGB Conc 32.2 g/dL (31.6-35.5); Mean Corpuscular Hemoglobin 28.9 pg (28.0-33.3); Mean Corpuscular Volume 89.7 fL (83.0-100.0); Mean Platelet Volume 12.5 fL (9.4-12.4); Monocytes # 0.3 K/mcL (0.0-1.3); Neutrophils # 9.5 K/mcL (1.6-8.9); Platelet Count 201 K/mcL (140-400); Red Cell Distribution Width 14.8 % (11.5-14.5); Segmented Neutrophils % 89.8 %
[2017-02-23 04:56] LABS: INR 1.1; Prothrombin Time 11.4 Seconds (9.4-12.1)
[2017-02-23 04:59] LABS: Activated Partial Thrombo Time 64.7 Seconds (26.0-36.0)
[2017-02-23] MEDS: *HR* Morphine 2 MG/ML SYRINGE IVP PRN ×3 (05:07→20:11)
[2017-02-23 05:09] LABS: BUN/Creatinine Ratio 22 (6-26); Blood Urea Nitrogen 23 mg/dL (8-26); Calcium 8.3 mg/dL (8.6-10.8); Carbon Dioxide 25 mEq/L (19-29); Chloride 107 mEq/L (98-109); Glucose 132 mg/dL (70-99); Osmolality,Calculated 300 (280-300); Potassium 3.9 mEq/L (3.5-4.5); Sodium 142 mEq/L (136-145); eGFR For African Americans > 60 (> 60); eGFR For Non-African Americans > 60 (> 60)
--- NOTE | 2017-02-23 08:45 | Internal Med Progress Note ---
<Jatin Damon - Last Filed: 02/23/17 11:11> Date of Encounter: 02/23/17 Time of Encounter: 08:43 - Assessment and plan (1) Pulmonary emboli Current Visit: Yes Status: Acute Assessment and plan: V/Q scan 02/19/17 revealed multiple areas suspicious for pulmonary emboli, CTA was unable to be performed due to CKD. CTA not ordered despite improved kidney function back to baseline, will not interchange agent in this patient. CXR revealed no acute cardiopulmonary process. EKG revealed sinus tachycardia with occasional PAC, rate 113. Troponin 0.03 x2. D-dimer elevated. PT 11.4, INR 1.1, PTT 64.7 Aortic US revealed a 3.0 cm ectatic mid abdominal aorta. Echo revealed LVEF 60%, otherwise essentially normal Bilateral lower extremity doppler exam negative for dvt or svt bilaterally. CTA 02/23/17 revealed no evidence of pulmonary embolism or acute pulmonary abnormality, mild COPD. Patient satting at 98% on 2.0 L Hemodynamically stable. Continue heparin drip d4, supplemental oxygen nasal cannula, pain control. Hematology note reviewed. Pending recommendations. Qualifiers: Pulmonary embolism type: other Chronicity: acute Acute cor pulmonale presence: without acute cor pulmonale Qualified Code(s): I26.99 - Other pulmonary embolism without acute cor pulmonale (2) COPD (chronic obstructive pulmonary disease) Current Visit: Yes Status: Chronic Assessment and plan: No acute exacerbation. WBC decreased from 10.5, from 14.0 yesterday. Discontinue steroids. Continue duonebs. Qualifiers: COPD type: unspecified COPD Qualified Code(s): J44.9 - Chronic obstructive pulmonary disease, unspecified (3) Atypical chest pain Current Visit: Yes Status: Acute Assessment and plan: EKG revealed sinus tachycardia, rate 113. Troponin x2 0.03 Suspect pleuritic chest pain secondary to PE. Echo revealed LVEF 60%, otherwise essentially normal. (4) GI bleeding Current Visit: Yes Status: Acute Assessment and plan: Recent admission for gi bleed on 02/11/17 secondary to ischemic colitis. GI note reviewed. Hb 10.4, up from 9.7 yesterday. GI recommends outpatient colonoscopy in 3-5 weeks. Continue to monitor labs. Qualifiers: GI bleed type/associated pathology: unspecified gastrointestinal hemorrhage type Qualified Code(s): K92.2 - Gastrointestinal hemorrhage, unspecified (5) Leukocytosis Current Visit: Yes Status: Acute Assessment and plan: WBC 10.5 this morning, decreased from 14.0 yesterday. CXR was negative for cardiopulmonary processes on arrival V/Q revealed multiple pulmonary emboli Patient is afebrile and nontachycardic. Likely elevated secondary to solumedrol administration for possible COPD exac on arrival. Discontinued solumedrol due to unlikely COPD exac. Qualifiers: Leukocytosis type: bandemia Qualified Code(s): D72.825 - Bandemia (6) CAD (coronary artery disease) Current Visit: Yes Status: Chronic Qualifiers: Coronary Disease-Associated Artery/Lesion type: unspecified vessel or lesion type [place] vs. transplanted heart: unspecified whether circle or transplanted heart Associated angina: angina presence unspecified Qualified Code(s): I25.10 - Atherosclerotic heart disease of circle coronary artery without angina pectoris (7) HTN (hypertension) Current Visit: Yes Status: Chronic Assessment and plan: Bp 158/72 Continue home medications for chronic disease management, Metoprolol XL 50mg. Improved pressures overnight with low dose losartan. Increase to losartan 25mg. Qualifiers: Hypertension type: essential hypertension Qualified Code(s): I10 - Essential (primary) hypertension (8) PAD (peripheral artery disease) Current Visit: Yes Status: Chronic Assessment and plan: History of aorto-fem bypass. Patient has not been on aspirin since last admission and used to be on plavix, but was discontinued from [facility] due to cost. Continue heparin drip. Will need to consider anticoagulation options prior to discharge. (9) CKD (chronic kidney disease), stage III Current Visit: Yes Status: Chronic Assessment and plan: At baseline. Cr 1.54 on arrival to ED. Initially elevated Cr >2.0 at [facility] prior to transfer, therefore unable to get Chest CTA. Cr 1.04 today. Continue monitoring. Hold nephrotoxic agents. (10) HLD (hyperlipidemia) Current Visit: Yes Status: Chronic Qualifiers: Hyperlipidemia type: unspecified Qualified Code(s): E78.5 - Hyperlipidemia , unspecified (11) Tobacco use disorder, moderate, in early remission, dependence Current Visit: Yes Status: Acute (12) PTSD (post-traumatic stress disorder) Current Visit: Yes Status: Chronic Assessment and plan: Doxepin 10mg not on formulary, closest is 25mg. Hold medication due to nonformulary, patient unable to get home medications. (13) DVT prophylaxis Current Visit: Yes Status: Acute Assessment and plan: On heparin drip. - Subjective Interval history: Patient reports that he did well overnight, feels less pain and less shortness of breath. Patient appears to have more energy this morning than yesteday. Patient denies fevers, chills, sweats, headaches, nausea, vomiting, chest pain, abdominal pain, changes in bowels or bladder, weakness, or loss of sensation. Patient tolerated diet overnight. Ordered CTA per HemOnc recommendations and pending further evaluation for anticoagulation therapy. - Constitutional Vitals: Temp Pulse Resp BP Pulse Ox 97.4 F L 69 18 158/72 98 02/23/17 07:01 02/23/17 07:01 02/23/17 07:01 02/23/17 07:01 02/23/17 07:01 General appearance: Present: cachectic, cooperative, A&O X 3, pleasant, no acute distress, answers questions appropriately - Head Head exam: Present: atraumatic, normocephalic - Eye Eye exam: Present: normal appearance - ENT ENT exam: Present: mucous membranes moist, normal exam, normal external ear exam , normal oropharynx - Neck Neck exam general surgery: Present: full ROM, normal inspection, supple, trachea midline. Absent: tenderness - Respiratory Respiratory exam: Present: wheezes. Absent: accessory muscle use, chest wall tenderness, rales, rhonchi - Cardiovascular Cardiovascular exam: Present: RRR, +S1, +S2. Absent: diastolic murmur, JVD, systolic murmur - GI/Abdominal GI/Abdominal exam: Present: normal bowel sounds, soft. Absent: distended, guarding, tenderness - Extremities Exam Extremities exam: Present: full ROM, normal inspection, warm. Absent: pedal edema, tenderness - Neurological Exam Neurological exam: Present: alert, oriented X3, no focal deficits, strengths equal and symetr throughout. Absent: facial droop, speech deficit - Psychiatric Psychiatric exam: Present: normal affect, normal mood - Skin Skin exam: Present: dry, intact, normal color, warm. Absent: diaphoretic, erythema, pallor Internal Medicine: Result - Labs CBC & Chem 7: 02/23/17 04:25 02/23/17 04:25 Labs: Short CBC 02/23/17 Range/Units 04:25 WBC 10.5 (4.3-11.1) K/mcL Hgb 10.4 L (12.9-16.9) g/dL Hct 32.3 L (37.5-50.1) % Plt Count 201 (140-400) K/mcL Neutrophils # 9.5 H (1.6-8.9) K/mcL BMP 02/23/17 04:25 Sodium 142 Potassium 3.9 Chloride 107 Carbon Dioxide 25 BUN 23 Creatinine 1.04 Glucose 132 H Calcium 8.3 L - ABG Interpretation ABG results: PT/INR, D-dimer PT 11.4 Seconds (9.4-12.1) 02/23/17 04:25 D-Dimer 1608 ng/mLFEU (0-500) H 02/20/17 05:22 Consult Discharge Plan - Plan [facility]errals: [facility]Primary Care Provider[facility] - 03/02/17 2:30 pm <Khurram Garcia P - Last Filed: 02/23/17 17:50> Date of Encounter: 02/23/17 - Constitutional Vitals: Temp Pulse Resp BP Pulse Ox 97.8 F 61 18 169/76 98 02/23/17 15:55 02/23/17 15:55 02/23/17 15:55 02/23/17 15:55 02/23/17 15:55 Internal Medicine: Result - Labs CBC & Chem 7: 02/23/17 04:25 02/23/17 04:25 Labs: Short CBC 02/23/17 Range/Units 04:25 WBC 10.5 (4.3-11.1) K/mcL Hgb 10.4 L (12.9-16.9) g/dL Hct 32.3 L (37.5-50.1) % Plt Count 201 (140-400) K/mcL Neutrophils # 9.5 H (1.6-8.9) K/mcL BMP 02/23/17 04:25 Sodium 142 Potassium 3.9 Chloride 107 Carbon Dioxide 25 BUN 23 Creatinine 1.04 Glucose 132 H Calcium 8.3 L - ABG Interpretation ABG results: PT/INR, D-dimer PT 11.4 Seconds (9.4-12.1) 04/04/17 04:25 D-Dimer 1608 ng/mLFEU (0-500) H 02/20/17 05:22 - Impressions Impressions Chest CTA 02/23/17 10:00 IMPRESSION: No evidence of pulmonary embolism or acute pulmonary abnormality. Mild COPD. D/ / 02/23/2017 11:01:44 Livan Cottrell MD / cynthia Interpreting Provider: Livan Cottrell MD - Attending Attestation I examined this patient and my medical decision-making was reviewed with the CONTENT MANAGER/PA/Advanced Practice Nurse/Resident Physician. I agree with the documented findings, disposition and treatment plan as described except to the extent set forth below. Awaiting hematology review.
[2017-02-23] MEDS: MethylPREDNISolone 40 MG/ML VIAL IVP SCH ×3 (09:03→23:46)
[2017-02-23] MEDS: Metoprolol XL (24 HR) Succ 50 MG TAB.ER.24H PO SCH (09:03)
[2017-02-23] MEDS: Pantoprazole 40 MG VIAL IVP SCH (09:03)
[2017-02-23] MEDS ORDERED: Ipratropium/Albuterol Neb 3 ML IH PRN (09:20)
[2017-02-23] MEDS: 0.9 % Sodium Chloride 1,000 ML IVC SCH ×2 (10:42→21:12)
[2017-02-23] MEDS: Folic Acid 1 MG TABLET PO SCH (20:11)
[2017-02-23] MEDS: Heparin 25,000 UNIT/500 ML D5W 25,000 UNIT/500 ML MLS IVC SCH (21:12)
[2017-02-23 22:42] LABS: % Iron Saturation 88 % (20-55); Iron 183 mcg/dL (65-175); Lactate Dehydrogenase 243 Units/L (159-327); Transferrin 148 mg/dL (174-364)
[2017-02-23] MEDS: (Doxepin Hcl [Doxepin Hcl] 10 MG) PO SCH (22:43)
[2017-02-24] MEDS: *HR* Morphine 2 MG/ML SYRINGE IVP PRN (00:21)
[2017-02-24 06:12] LABS: INR 1.1; Prothrombin Time 11.5 Seconds (9.4-12.1)
[2017-02-24 06:13] LABS: Hematocrit 33.8 % (37.5-50.1); Hemoglobin 10.6 g/dL (12.9-16.9); Immature Granulocytes % 2.6 % (0-4); Lymphocytes % 5.2 %; Mean Corpuscular HGB Conc 31.4 g/dL (31.6-35.5); Mean Corpuscular Hemoglobin 28.1 pg (28.0-33.3); Mean Corpuscular Volume 89.7 fL (83.0-100.0); Mean Platelet Volume 12.8 fL (9.4-12.4); Monocytes % 3.1 %; Platelet Count 202 K/mcL (140-400); Red Blood Count 3.77 M/mcL (4.19-5.50); Red Cell Distribution Width 14.9 % (11.5-14.5)
[2017-02-24 06:14] LABS: Basophils % 0.1 %; Lymphocytes # 0.5 K/mcL (0.6-4.6); Monocytes # 0.3 K/mcL (0.0-1.3); Neutrophils # 9.2 K/mcL (1.6-8.9)
[2017-02-24 06:15] LABS: Activated Partial Thrombo Time 86.9 Seconds (26.0-36.0)
[2017-02-24 06:33] LABS: BUN/Creatinine Ratio 24 (6-26); Blood Urea Nitrogen 24 mg/dL (8-26); Calcium 8.1 mg/dL (8.6-10.8); Carbon Dioxide 25 mEq/L (19-29); Chloride 105 mEq/L (98-109); Glucose 119 mg/dL (70-99); Osmolality,Calculated 299 (280-300); Potassium 3.4 mEq/L (3.5-4.5); Sodium 142 mEq/L (136-145); eGFR For African Americans > 60 (> 60); eGFR For Non-African Americans > 60 (> 60)
--- NOTE | 2017-02-24 07:34 | Internal Med Progress Note ---
<Jatin Damon - Last Filed: 02/24/17 11:38> Date of Encounter: 02/24/17 Time of Encounter: 07:24 - Assessment and plan (1) Pulmonary emboli Status: Acute Assessment and plan: V/Q scan 02/19/17 revealed multiple areas suspicious for pulmonary emboli, CTA was unable to be performed due to CKD. CTA not ordered despite improved kidney function back to baseline, will not jacquard loom card changer in this patient. CXR revealed no acute cardiopulmonary process. EKG revealed sinus tachycardia with occasional PAC, rate 113. Troponin 0.03 x2. D-dimer elevated. PT 11.4, INR 1.1, PTT 64.7 Aortic US revealed a 3.0 cm ectatic mid abdominal aorta. Echo revealed LVEF 60%, otherwise essentially normal Bilateral lower extremity doppler exam negative for dvt or svt bilaterally. CTA 02/23/17 revealed no evidence of pulmonary embolism or acute pulmonary abnormality, mild COPD. LDH was 243, Rheumatoid factor <15, TSH 0.562. Camilo 1+ D-dimer continued elevation 1939 this morning. Patient satting at 92% on room air Hemodynamically stable. Discontinue heparin drip d5. Continue with supplemental oxygen nasal cannula and pain control. Heparin sq for dvt ppx. Hematology note reviewed. May consider anticoagulation as an outpatient if d- dimer increasing, but none recommended at this time due to gi bleed. Folic acid supplement 1mg qd. ROSE, Light chains, blood smear received and pending. Recommended Pulmonology consult. (2) COPD (chronic obstructive pulmonary disease) Status: Chronic Assessment and plan: No acute exacerbation. WBC decreased from 10.3, from 10.5 yesterday. Continue duonebs. (3) Atypical chest pain Status: Acute Assessment and plan: EKG revealed sinus tachycardia, rate 113. Troponin x2 0.03 Suspect pleuritic chest pain secondary to PE. Echo revealed LVEF 60%, otherwise essentially normal. (4) GI bleeding Status: Acute Assessment and plan: Recent admission for gi bleed on 02/11/17 secondary to ischemic colitis. GI note reviewed. Hb 10.6, up from 10.4 yesterday. GI recommends outpatient colonoscopy in 3-5 weeks. Continue to monitor labs. Hematology recommends no anticoagulation therapy at this time due to gi bleed. If d-dimer continues to rise, may consider anticoagulation as outpatient. (5) Leukocytosis Status: Acute Assessment and plan: WBC 10.3 this morning, decreased from 10.5 yesterday. CXR was negative for cardiopulmonary processes on arrival V/Q revealed multiple pulmonary emboli Patient is afebrile and nontachycardic. Likely elevated secondary to solumedrol administration for possible COPD exac on arrival. Discontinued solumedrol due to unlikely COPD exac. Steroid taper oral. (6) CAD (coronary artery disease) Status: Chronic (7) HTN (hypertension) Status: Chronic Assessment and plan: Bp 176/76, otherwise hemodynamically stable on room air. Continue home medications for chronic disease management, Metoprolol XL 50mg. Pressures continuing to rise despite increased losartan dose. Hydralazine 5 mg prn if sbp >180. (8) PAD (peripheral artery disease) Status: Chronic Assessment and plan: History of aorto-fem bypass. Patient has not been on aspirin since last admission and used to be on plavix, but was discontinued from [facility] due to cost. Continue heparin drip discontinued d5. CTA 02/23/17 revealed no pulmonary emboli. Heparin sq q8h ordered for dvt ppx. No anticoagulation recommended at this time due to gi bleed. (9) CKD (chronic kidney disease), stage III Status: Chronic Assessment and plan: At baseline. Cr 1.54 on arrival to ED. Initially elevated Cr >2.0 at [facility] prior to transfer, therefore unable to get Chest CTA. Cr 1.00 today. Continue monitoring. Hold nephrotoxic agents. (10) HLD (hyperlipidemia) Status: Chronic (11) Tobacco use disorder, moderate, in early remission, dependence Status: Acute (12) PTSD (post-traumatic stress disorder) Status: Chronic Assessment and plan: Doxepin 10mg not on formulary, closest is 25mg. Hold medication due to nonformulary, patient unable to get home medications. (13) DVT prophylaxis Status: Acute Assessment and plan: Heparin drip discontinued, Heparing sq q8h ordered. - Subjective Interval history: Patient reports that he did well overnight, no shortness of breath, no weakness. Patient has more energy than even yesterday. he is quite agitated regarding continuance of his hospital stay and has been ready to leave for several days now. Patient denies fevers, chills, sweats, headaches, nausea, vomiting, chest pain, abdominal pain, changes in bowels or bladder, weakness, or loss of sensation. Patient tolerated diet overnight. HemOnc note reviewed, ordered d-dimer this morning, other tests pending. - Constitutional Vitals: Temp Pulse Resp BP Pulse Ox 97.6 F 64 18 176/76 92 02/24/17 05:02 02/24/17 05:02 02/24/17 05:02 02/24/17 05:02 02/24/17 05:02 General appearance: Present: cachectic, cooperative, A&O X 3, pleasant, no acute distress, answers questions appropriately - Head Head exam: Present: atraumatic, normal inspection, normocephalic - Eye Eye exam: Present: normal appearance - ENT ENT exam: Present: mucous membranes moist, normal exam, normal external ear exam , normal oropharynx - Neck Neck exam general surgery: Present: full ROM, normal inspection, supple, trachea midline. Absent: tenderness - Respiratory Respiratory exam: Present: wheezes. Absent: rales, rhonchi - Cardiovascular Cardiovascular exam: Present: RRR, +S1, +S2 - GI/Abdominal GI/Abdominal exam: Present: normal bowel sounds, soft. Absent: distended, guarding, tenderness - Extremities Exam Extremities exam: Present: full ROM, normal inspection, warm. Absent: pedal edema, tenderness - Neurological Exam Neurological exam: Present: alert, oriented X3, no focal deficits, strengths equal and symetr throughout. Absent: facial droop, speech deficit - Psychiatric Psychiatric exam: Present: agitated - Skin Skin exam: Present: dry, intact, normal color, warm. Absent: diaphoretic, erythema, pallor Internal Medicine: Result - Labs CBC & Chem 7: 02/24/17 05:23 02/24/17 05:23 Labs: Short CBC 02/24/17 Range/Units 05:23 WBC 10.3 (4.3-11.1) K/mcL Hgb 10.6 L (12.9-16.9) g/dL Hct 33.8 L (37.5-50.1) % Plt Count 202 (140-400) K/mcL Neutrophils # 9.2 H (1.6-8.9) K/mcL BMP 02/24/17 05:23 Sodium 142 Potassium 3.4 L Chloride 105 Carbon Dioxide 25 BUN 24 Creatinine 1.00 Glucose 119 H Calcium 8.1 L - ABG Interpretation ABG results: PT/INR, D-dimer PT 11.5 Seconds (9.4-12.1) 02/24/17 05:23 D-Dimer 1608 ng/mLFEU (0-500) H 02/20/17 05:22 - Impressions Impressions Chest CTA 02/23/17 10:00 IMPRESSION: No evidence of pulmonary embolism or acute pulmonary abnormality. Mild COPD. D/ / 02/23/2017 11:01:44 Livan Cottrell MD / cynthia Interpreting Provider: Livan Cottrell MD Consult Discharge Plan - Plan Instructions: Prednisone (By mouth), Folic Acid (By mouth), Losartan (By mouth) Additional Instructions: Patient sent home with prescriptions for hypertension (losartan), taper of steroids (prednisone), and folic acid. Take steroids as directed. Take 6 10mg tablets for three days, then decrease to 4 10mg tablets for three days, then decrease to 2 10mg tablets for three days ,m then decrease to 1 10mg tablet for three days. Follow up with your primary care physician within 7 days regarding this hospital stay for pulmonary embolism vs copd exacerbation. Follow up with Dr. English (Gastroenterology) within the next 10-14 days regarding your gi bleed secondary to ischemic colitis. Follow up with HemOnc regarding recommendations regarding your anticoagulation due to aort-fem bypass. Follow up with Pulmonology within 7-10 days regarding your COPD and this hospital stay. Referrals: Marii Hopson MD [Partnered Physician] - Jaime Livingston MD [Partnered Physician] - [facility],PCP [Primary Care Provider] - 03/02/17 2:30 pm Chaz English MD [Partnered Physician] - Prescriptions: Folic Acid 1 mg PO DAILY #14 tablet Losartan [Cozaar] 25 mg PO DAILY #30 tablet PredniSONE 10 mg PO DAILY #39 tablet <Khurram Garcia - Last Filed: 02/24/17 16:47> Date of Encounter: 02/24/17 - Constitutional Vitals: Temp Pulse Resp BP Pulse Ox 98.2 F 70 16 176/83 92 02/24/17 07:35 02/24/17 07:35 02/24/17 07:35 02/24/17 11:29 02/24/17 07:35 Internal Medicine: Result - Labs CBC & Chem 7: 02/24/17 05:23 02/24/17 05:23 Labs: Short CBC 02/24/17 Range/Units 05:23 WBC 10.3 (4.3-11.1) K/mcL Hgb 10.6 L (12.9-16.9) g/dL Hct 33.8 L (37.5-50.1) % Plt Count 202 (140-400) K/mcL Neutrophils # 9.2 H (1.6-8.9) K/mcL BMP 02/24/17 05:23 Sodium 142 Potassium 3.4 L Chloride 105 Carbon Dioxide 25 BUN 24 Creatinine 1.00 Glucose 119 H Calcium 8.1 L - ABG Interpretation ABG results: PT/INR, D-dimer PT 11.5 Seconds (9.4-12.1) 02/24/17 05:23 D-Dimer 1939 ng/mLFEU (0-500) H 02/24/17 07:42 - Attending Attestation I examined this patient and my medical decision-making was reviewed with the RICE DRYER MECHANIC/PA/Advanced Practice Nurse/Resident Physician. I agree with the documented findings, disposition and treatment plan as described except to the extent set forth below.
--- NOTE | 2017-02-24 08:38 | Oncology Inp Progress Note ---
Date of Encounter: 02/23/17 Time of Encounter: 18:00 (1) Bilateral pulmonary embolism Current Visit: Yes Status: Acute Assessment and plan: Currently by a CT angiogram no evidence of pulmonary embolism. Venous Doppler bilateral lower extremities negative. D-dimer elevated at 1600 on 02/20/2017 and 1900 on 02/24/2017. Also V/Q scan is not specific period on 02/19/2017 VQ scan showed bilateral matched segmental defect which was intermittent probability. Given the GI bleed we would not recommend anticoagulation at this time. He was hospitalized and discharged on 02/13/2017 with ischemic colitis and GI bleed. Ischemic colitis itself could be contributing to elevated d-dimer. He had shortness of breath on admission and he does have a history of COPD Pulmonary consult recommended (2) Anemia Current Visit: Yes Status: Acute Assessment and plan: Hemoglobin around 10. Folate low at 4.6 folic acid 1 mg by mouth daily. We will do a complete anemia workup No evidence of hemolysis and Camilo direct 1+ LDH normal at 243 Anemia may be contributing to some of the shortness of breath Qualifiers: Qualified Code(s): D64.9 - Anemia, unspecified Oncology: Subj Interval history: Denied any fresh bleeding per rectum. No fever chills - Constitutional Vitals: Vital Signs Temp Pulse Resp BP Pulse Ox 02/24/17 07:35 98.2 F 70 16 161/85 92 02/24/17 05:02 97.6 F 64 18 176/76 92 02/23/17 20:07 97.6 F 62 20 186/96 94 02/23/17 15:55 97.8 F 61 18 169/76 98 02/23/17 11:24 97.8 F 62 16 173/84 94 02/23/17 09:00 94 Intake and Output 02/23/17 02/24/17 02/24/17 23:59 07:59 15:59 Intake Total 1946 / 1946 198 / 198 Output Total 1125 / 1125 1200 / 1200 Balance 821 / 821 -1002 / -1002 Intake: IV Fluids 1346 / 1346 198 / 198 0.9 % Sodium Chloride 1, 1000 / 1000 000 ML @ 90 mls/hr IVC . Q11H7M [facility] Rx#:[id number] Heparin 25,000 UNIT/500 346 / 346 198 / 198 ML D5W 25,000 unit In 500 ml @ 14 UNIT/KG/HR 15. 876 mls/hr IVC .Q24H [facility]IMA Rx#:[id number] Oral 600 / 600 0 / 0 Output: Urine 1125 / 1125 1200 / 1200 Other: Meal Dinner Percent of Meal Consumed 75% Weight 65 kg Blood Glucose* 148 160 Patient Weight 02/24/17 23:59 Weight 65 kg Exam: GENERAL: Alert and oriented, well appearing. Mental Status: Affect appropriate for circumstances HEENT: Sclerae anicteric. No mucositis or thrush. No other oral or pharyngeal lesions or erythema. Skin: No rashes or petechiae. No evidence of skin malignancy Lymph nodes: No cervical, supraclavicular, axillary, or inguinal adenopathy. Lungs: Air entry decreased in the bases. Cardiovascular: Regular rate and rhythm. No gallops, murmurs, or rubs. Abdomen: Soft, nontender; no organomegaly or masses palpable. Extremities: No edema. No calf swelling or tenderness. No joint deformity. Neurologic: Alert, cranial nerves II-XII intact; normal gait; no focal weakness or sensory abnormalities. Oncology: Obj Data - Labs CBC & Chem 7: 02/24/17 05:23 02/24/17 05:23 Labs: Laboratory Results - last 24 hr 02/23/17 02/23/17 02/23/17 07:06 11:26 15:58 WBC RBC Hgb Hct MCV MCH MCHC RDW Plt Count MPV Immature Gran % Seg Neutrophils % Lymphocytes % Monocytes % Eosinophils % Basophils % Neutrophils # Lymphocytes # Monocytes # Eosinophils # Basophils # PT INR APTT D-Dimer Sodium Potassium Chloride Carbon Dioxide BUN Creatinine Est GFR ( Amer) Est GFR (Non-Af Amer) BUN/Creatinine Ratio Glucose POC Glucose 176 H 202 H 121 H Calculated Osmolality Calcium Iron % Saturation Transferrin Lactate Dehydrogenase TSH Rheumatoid Factor Direct Antiglob Test KALEE, Poly Interpret 02/23/17 02/23/17 02/23/17 20:11 20:18 21:35 WBC RBC Hgb Hct MCV MCH MCHC RDW Plt Count MPV Immature Gran % Seg Neutrophils % Lymphocytes % Monocytes % Eosinophils % Basophils % Neutrophils # Lymphocytes # Monocytes # Eosinophils # Basophils # PT INR APTT D-Dimer Sodium Potassium Chloride Carbon Dioxide BUN Creatinine Est GFR ( Amer) Est GFR (Non-Af Amer) BUN/Creatinine Ratio Glucose POC Glucose 148 H Calculated Osmolality Calcium Iron 183 H % Saturation 88 H Transferrin 148 L Lactate Dehydrogenase 243 TSH Rheumatoid Factor < 15 Direct Antiglob Test KALEE, Poly Interpret 02/23/17 02/23/17 02/24/17 21:35 21:35 05:23 WBC RBC Hgb Hct MCV MCH MCHC RDW Plt Count MPV Immature Gran % Seg Neutrophils % Lymphocytes % Monocytes % Eosinophils % Basophils % Neutrophils # Lymphocytes # Monocytes # Eosinophils # Basophils # PT 11.5 INR 1.1 APTT 86.9 H D-Dimer Sodium Potassium Chloride Carbon Dioxide BUN Creatinine Est GFR ( Amer) Est GFR (Non-Af Amer) BUN/Creatinine Ratio Glucose POC Glucose Calculated Osmolality Calcium Iron % Saturation Transferrin Lactate Dehydrogenase TSH 0.562 Rheumatoid Factor Direct Antiglob Test 1+ KALEE, Poly Interpret 1+ 02/24/17 02/24/17 02/24/17 05:23 05:23 07:37 WBC 10.3 RBC 3.77 L Hgb 10.6 L Hct 33.8 L MCV 89.7 MCH 28.1 MCHC 31.4 L RDW 14.9 H Plt Count 202 MPV 12.8 H Immature Gran % 2.6 Seg Neutrophils % 89.0 Lymphocytes % 5.2 Monocytes % 3.1 Eosinophils % 0.0 Basophils % 0.1 Neutrophils # 9.2 H Lymphocytes # 0.5 L Monocytes # 0.3 Eosinophils # 0.0 Basophils # 0.0 PT INR APTT D-Dimer Sodium 142 Potassium 3.4 L Chloride 105 Carbon Dioxide 25 BUN 24 Creatinine 1.00 Est GFR ( Amer) > 60 Est GFR (Non-Af Amer) > 60 BUN/Creatinine Ratio 24 Glucose 119 H POC Glucose 160 H Calculated Osmolality 299 Calcium 8.1 L Iron % Saturation Transferrin Lactate Dehydrogenase TSH Rheumatoid Factor Direct Antiglob Test KALEE, Poly Interpret 02/24/17 07:42 WBC RBC Hgb Hct MCV MCH MCHC RDW Plt Count MPV Immature Gran % Seg Neutrophils % Lymphocytes % Monocytes % Eosinophils % Basophils % Neutrophils # Lymphocytes # Monocytes # Eosinophils # Basophils # PT INR APTT D-Dimer 1939 H Sodium Potassium Chloride Carbon Dioxide BUN Creatinine Est GFR ( Amer) Est GFR (Non-Af Amer) BUN/Creatinine Ratio Glucose POC Glucose Calculated Osmolality Calcium Iron % Saturation Transferrin Lactate Dehydrogenase TSH Rheumatoid Factor Direct Antiglob Test KALEE, Poly Interpret - Impressions Impressions Chest CTA 02/23/17 10:00 IMPRESSION: No evidence of pulmonary embolism or acute pulmonary abnormality. Mild COPD. D/ / 02/23/2017 11:01:44 Livan Cottrell MD / [email or web address] Interpreting Provider: Livan Cottrell MD - ABG Interpretation ABG results: PT/INR, D-dimer PT 11.5 Seconds (9.4-12.1) 02/24/17 05:23 D-Dimer 1939 ng/mLFEU (0-500) H 02/24/17 07:42 Consult Discharge Plan - Plan Referrals: [facility],PCP [Primary Care Provider] - 03/02/17 2:30 pm
[2017-02-24] MEDS: Folic Acid 1 MG TABLET PO SCH (08:59)
[2017-02-24] MEDS: 0.9 % Sodium Chloride 1,000 ML IVC SCH (09:00)
[2017-02-24] MEDS: MethylPREDNISolone 40 MG/ML VIAL IVP SCH (09:00)
[2017-02-24] MEDS: Metoprolol XL (24 HR) Succ 50 MG TAB.ER.24H PO SCH (09:00)
[2017-02-24 11:30] VITALS: BP 176/83
--- NOTE | 2017-02-24 11:49 | Pulmonology Consult Note ---
<Patrick Wolff - Last Filed: 02/24/17 13:25> Date of Encounter: 02/24/17 Time of Encounter: 11:32 Assessment and Plan (1) Pulmonary emboli Status: Suspected Elevated D-dimer, V/Q scan intermediate probability, Negative for PE on CTA, Wells score of 1 (tachycardia), negative LE venous dopplers Currently SPO2 >95 on room air CTA shows scarring on right lobe posterior segment, some emphysematous changes and ground glass. PE probability is low. Likely COPD exacerbation as patient improved with steroids and duoneb. Patient does not need to be on anticoagulation Follow up outpatient with pulmonolgy Qualifiers: Pulmonary embolism type: other Chronicity: acute Acute cor pulmonale presence: without acute cor pulmonale Qualified Code(s): I26.99 - Other pulmonary embolism without acute cor pulmonale History of Present Illness Consult date: 02/24/17 Requesting physician: Jatin Damon Reason for consult: pulmonary embolism, other (P) Chief complaint: SOB History of present illness: 66 y/o male presented to [place] urgent care with symptoms of sob which started two weeks ago. Stated sob was progressively becoming worse, and had right pluritic chest pain worsening with inspiration. SB is worse with laying down and exertion. HR was 113. Trop was 0.03 x2. D-dimer 1608, BNP 157, hemoccult positive stool. SCr >2. Underwent VQ scan due to concern of PE. VQ scan was intermediate probability. He was started on Heparin drip. Once Deniz resolved, CTA was done which did not show evidence of PE. Heparin was d/c. Venous doppler b/l were negative for DVT. Echo showed LVEF 60% with no valvular or wall motion abnormalities. Initially required 2.5L of O2 and now on room air with SPO2 >95% . he was also treated for COPD exacerbation with steroids and bronchodilators. Has hx of tobacco abuse and quit two weeks ago. He does not use oxygen at home. Admitted to [facility]. Denies fever, sinus congestion, sputum production, cough, syncope, loc, headache, hemoptysis, hemetemesis, melena, hematochezia. Patient was recently admitted to [facility] for GI bleeding 2nd to ishcemic colitis on 02/10. Hgb has been stable. Oncology was consulted for anticoagulation recommendations and stated due to negative CTA, and b/l venous dopplers were negative and hx of GI bleed he should not be anticoagulated. Also found patient to have anemia and low folic acid. Patient is being worked up for anemia. Past Med Surg Social Fam HX - Past Medical History Medical history: COPD, hyperlipidemia, hypertension, peripheral artery disease Psychiatric history: anxiety, depression, PTSD - Past Surgical History Surgical History: herniorrhaphy, LE Bypass, LE stent(s), LE vascular intervention, vascular surgery - Social History Smoking Status: Current every day smoker Packs per day: 1-2ppdx 45 years Smokeless Tobacco Status: No Alcohol use: none Drug use: none Medications and Allergies Albuterol Sulfate [Albuterol Inhaler] 2 puff IH Q6H PRN 02/10/17 [History] Doxepin HCl 10 mg PO HS 02/10/17 [History] L. Acidophilus/Pectin, [place] [Acidophilus Probiotic Capsule] 1 cap PO TID 02/10 [History] Metoprolol XL (24 HR) Succ [Toprol Xl] 50 mg PO DAILY 02/10/17 [History] HYDROcodone/Acet 5/325 mg [[place] 5-325 mg] 1 tab PO Q8HR PRN #10 tab 02/13/17 [ Rx] Calcium Carbonate/Vitamin D3 [Calcium 1,000 + D3 Caplet] 1 tab PO DAILY [History] Cholecalciferol (D-3) [Vitamin D] 1,000 unit PO DAILY 02/20/17 [History] Simvastatin [Zocor] 40 mg PO HS 02/20/17 [History] Folic Acid 1 mg PO DAILY #14 tablet 02/24/17 [Rx] Losartan [Cozaar] 25 mg PO DAILY #30 tablet 02/24/17 [Rx] PredniSONE 10 mg PO DAILY #39 tablet 02/24/17 [Rx] Allergies gabapentin Allergy (Verified 02/10/17 21:05) See Comments hydrochlorothiazide Allergy (Verified 02/10/17 21:05) See Comments hydroxyzine [From Vistaril] Allergy (Verified 02/10/17 21:05) See Comments All Systems: A 10-system review of systems was performed and is negative for pertinent findings except as documented above in the HPI. Review of Systems: as per HPI Physical Examination Vital Signs: Vital Signs, Last 4 Hours Temp Pulse Resp BP Pulse Ox 02/24/17 11:29 176/83 02/24/17 07:35 98.2 F 70 16 161/85 92 General appearance: no acute distress Eyes: nonicteric ENT: oropharynx moist Neck: supple Effort: normal Inspection: normal Auscultation: bilateral: clear, diminished breath sounds Percussion: bilateral: not dull Tactile fremitus: bilateral: normal Cardiovascular: regular rate and rhythm Gastrointestinal: normoactive bowel sounds, non-distended Integumentary: normal Extremities: no cyanosis, no edema, no clubbing Musculoskeletal: no deformities, ROM normal normal mental status, non-focal exam mood appropriate, affect normal Results - Laboratory Findings CBC and BMP: 02/24/17 05:23 02/24/17 05:23 PT/INR, D-dimer PT 11.5 Seconds (9.4-12.1) 02/24/17 05:23 D-Dimer 1939 ng/mLFEU (0-500) H 02/24/17 07:42 Abnormal lab findings: Abnormal lab results RBC 3.77 M/mcL (4.19-5.50) L 02/24/17 05:23 Hgb 10.6 g/dL (12.9-16.9) L 02/24/17 05:23 Hct 33.8 % (37.5-50.1) L 02/24/17 05:23 MCHC 31.4 g/dL (31.6-35.5) L 02/24/17 05:23 RDW 14.9 % (11.5-14.5) H 02/24/17 05:23 MPV 12.8 fL (9.4-12.4) H 02/24/17 05:23 Neutrophils # 9.2 K/mcL (1.6-8.9) H 02/24/17 05:23 Lymphocytes # 0.5 K/mcL (0.6-4.6) L 02/24/17 05:23 APTT 86.9 Seconds (26.0-36.0) H 02/24/17 05:23 D-Dimer 1939 ng/mLFEU (0-500) H 02/24/17 07:42 Potassium 3.4 mEq/L (3.5-4.5) L 02/24/17 05:23 Glucose 119 mg/dL (70-99) H 02/24/17 05:23 POC Glucose 160 (58-89) H 02/24/17 07:37 Calcium 8.1 mg/dL (8.6-10.8) L 02/24/17 05:23 Iron 183 mcg/dL (65-175) H 02/23/17 21:35 % Saturation 88 % (20-55) H 02/23/17 21:35 Transferrin 148 mg/dL (174-364) L 02/23/17 21:35 AST 36 Units/L (5-34) H 02/20/17 01:22 B-Natriuretic Peptide 157 pg/mL (0-100) H 02/20/17 01:22 Albumin 3.0 g/dL (3.5-5.0) L 02/20/17 01:22 Globulin 4.3 g/dL (2.4-3.5) H 02/20/17 01:22 Albumin/Globulin Ratio 0.7 (1.1-2.2) L 02/20/17 01:22 Stool Occult Blood Positive (Negative) A 02/19/17 23:36 - Diagnostic Findings Chest x-ray: report reviewed CT scan - chest: report reviewed - Clinical Findings Intake & Output: Intake & Output 02/23/17 02/24/17 02/24/17 23:59 07:59 15:59 Intake Total 1946 / 1946 198 / 198 1120 / 1120 Output Total 1125 / 1125 1200 / 1200 600 / 600 Balance 821 / 821 -1002 / -1002 520 / 520 Weight 65 kg Consult Discharge Plan - Plan Instructions: Prednisone (By mouth), Folic Acid (By mouth), Losartan (By mouth) Additional Instructions: Patient sent home with prescriptions for hypertension (losartan), taper of steroids (prednisone), and folic acid. Take steroids as directed. Take 6 10mg tablets for three days, then decrease to 4 10mg tablets for three days, then decrease to 2 10mg tablets for three days ,m then decrease to 1 10mg tablet for three days. Follow up with your primary care physician within 7 days regarding this hospital stay for pulmonary embolism vs copd exacerbation. Follow up with Dr. English (Gastroenterology) within the next 10-14 days regarding your gi bleed secondary to ischemic colitis. Follow up with HemOnc regarding recommendations regarding your anticoagulation due to aort-fem bypass. Follow up with Pulmonology within 7-10 days regarding your COPD and this hospital stay. Referrals: Marii Hopson MD [Partnered Physician] - Jaime Livingston MD [Partnered Physician] - [place],PCP [Primary Care Provider] - 03/02/17 2:30 pm Chaz English MD [Partnered Physician] - Prescriptions: Folic Acid 1 mg PO DAILY #14 tablet Losartan [Cozaar] 25 mg PO DAILY #30 tablet PredniSONE 10 mg PO DAILY #39 tablet <Jaime Livingston - Last Filed: 02/24/17 16:40> Date of Encounter: 02/24/17 All Systems: A 10-system review of systems was performed and is negative for pertinent findings except as documented above in the HPI. Results - Laboratory Findings CBC and BMP: 02/24/17 05:23 02/24/17 05:23 PT/INR, D-dimer PT 11.5 Seconds (9.4-12.1) 02/24/17 05:23 D-Dimer 1939 ng/mLFEU (0-500) H 02/24/17 07:42 Abnormal lab findings: Abnormal lab results RBC 3.77 M/mcL (4.19-5.50) L 02/24/17 05:23 Hgb 10.6 g/dL (12.9-16.9) L 02/24/17 05:23 Hct 33.8 % (37.5-50.1) L 02/24/17 05:23 MCHC 31.4 g/dL (31.6-35.5) L 02/24/17 05:23 RDW 14.9 % (11.5-14.5) H 02/24/17 05:23 MPV 12.8 fL (9.4-12.4) H 02/24/17 05:23 Neutrophils # 9.2 K/mcL (1.6-8.9) H 02/24/17 05:23 Lymphocytes # 0.5 K/mcL (0.6-4.6) L 02/24/17 05:23 APTT 86.9 Seconds (26.0-36.0) H 02/24/17 05:23 D-Dimer 1939 ng/mLFEU (0-500) H 02/24/17 07:42 Potassium 3.4 mEq/L (3.5-4.5) L 02/24/17 05:23 Glucose 119 mg/dL (70-99) H 02/24/17 05:23 POC Glucose 160 (58-89) H 02/24/17 07:37 Calcium 8.1 mg/dL (8.6-10.8) L 02/24/17 05:23 Iron 183 mcg/dL (65-175) H 02/23/17 21:35 % Saturation 88 % (20-55) H 02/23/17 21:35 Transferrin 148 mg/dL (174-364) L 02/23/17 21:35 AST 36 Units/L (5-34) H 02/20/17 01:22 B-Natriuretic Peptide 157 pg/mL (0-100) H 02/20/17 01:22 Albumin 3.0 g/dL (3.5-5.0) L 02/20/17 01:22 Globulin 4.3 g/dL (2.4-3.5) H 02/20/17 01:22 Albumin/Globulin Ratio 0.7 (1.1-2.2) L 02/20/17 01:22 Stool Occult Blood Positive (Negative) A 02/19/17 23:36 - Clinical Findings Intake & Output: Intake & Output 02/24/17 02/24/17 02/24/17 07:59 15:59 23:59 Intake Total 198 / 198 1120 / 1120 Output Total 1200 / 1200 600 / 600 Balance -1002 / -1002 520 / 520 Weight 65 kg - Attending Attestation I examined this patient and my medical decision-making was reviewed with the SOLE BLACKER/PA/Advanced Practice Nurse/Resident Physician. I agree with the documented findings, disposition and treatment plan as described except to the extent set forth below. Patient seen and examined. Labs, radiology, chart personally reviewed. Agree with resident's history and physical, assessment, plan with following comments: [employer]: Patient follows commands, Pulmonary: Acceptable oxygenation and ventilation. This patient has no evidence of pulmonary embolisms when he had his CT angiogram, however subsegmental it will be shown better on a V/Q scan. I suspect in this patient due to his underlying COPD that would not be reliable and he has low well's criteria. His d-dimer would be elevated due to the inflammatory disease. Patient has recently quit smoking and advised him not to smoke tobacco again and also he needs outpatient workup I gave him my card when he follows up in [facility], and then we will be happy to see him as an outpatient. I have reviewed CT chest personally and there is an area in his right side lung which I thought the chest atelectasis, however as outpatient low-dose CT scan for lung nodules and would be reasonable to due to his risk factors. He will need to be on bronchodilators which can be done as an outpatient upon follow-up. Thank you very much for the consultation.
[2017-02-24] MEDS ORDERED: *HR* Heparin 5,000 UNIT/ML VIAL SQ SCH (14:00)
--- NOTE | 2017-02-24 14:14 | Discharge Summary ---
<Jatin Damon - Last Filed: 02/24/17 14:12> Date of Encounter: 02/24/17 Time of Encounter: 14:12 - Discharge Diagnosis (1) Pulmonary emboli Priority: Primary Status: Suspected Comments: V/Q scan 02/19/17 revealed multiple areas suspicious for pulmonary emboli, CTA was unable to be performed due to CKD. CTA not ordered despite improved kidney function back to baseline, will not pipe changer in this patient. CXR revealed no acute cardiopulmonary process. EKG revealed sinus tachycardia with occasional PAC, rate 113. Troponin 0.03 x2. D-dimer elevated. PT 11.4, INR 1.1, PTT 64.7 Aortic US revealed a 3.0 cm ectatic mid abdominal aorta. Echo revealed LVEF 60%, otherwise essentially normal Bilateral lower extremity doppler exam negative for dvt or svt bilaterally. CTA 02/23/17 revealed no evidence of pulmonary embolism or acute pulmonary abnormality, mild COPD. LDH was 243, Rheumatoid factor <15, TSH 0.562. Camilo 1+ D-dimer continued elevation 1939 this morning. Patient satting at 92% on room air Hemodynamically stable. Discontinue heparin drip d5. Continue with supplemental oxygen nasal cannula and pain control. Heparin sq for dvt ppx. Hematology note reviewed. May consider anticoagulation as an outpatient if d- dimer increasing, but none recommended at this time due to gi bleed. Folic acid supplement 1mg qd. ROSE, Light chains, blood smear received and pending. Pulmonology note reviewed. Suspect COPD exacerbation > PE. Follow up as outpatient with pulmonology. Qualifiers: Pulmonary embolism type: other Chronicity: acute Acute cor pulmonale presence: without acute cor pulmonale Qualified Code(s): I26.99 - Other pulmonary embolism without acute cor pulmonale (2) COPD (chronic obstructive pulmonary disease) Priority: Secondary Status: Chronic Comments: No acute exacerbation. WBC decreased from 10.3, from 10.5 yesterday. Continue duonebs. Streoid taper po. Qualifiers: COPD type: unspecified COPD Qualified Code(s): J44.9 - Chronic obstructive pulmonary disease, unspecified (3) Atypical chest pain Priority: Primary Status: Acute Comments: EKG revealed sinus tachycardia, rate 113. Troponin x2 0.03 Suspect pleuritic chest pain secondary to PE. Echo revealed LVEF 60%, otherwise essentially normal. (4) GI bleeding Priority: Secondary Status: Acute Comments: Recent admission for gi bleed on 02/11/17 secondary to ischemic colitis. GI note reviewed. Hb 10.6, up from 10.4 yesterday. GI recommends outpatient colonoscopy in 3-5 weeks. Continue to monitor labs. Hematology recommends no anticoagulation therapy at this time due to gi bleed. If d-dimer continues to rise, may consider anticoagulation as outpatient. Qualifiers: GI bleed type/associated pathology: unspecified gastrointestinal hemorrhage type Qualified Code(s): K92.2 - Gastrointestinal hemorrhage, unspecified (5) Leukocytosis Priority: Primary Status: Acute Comments: WBC 10.3 this morning, decreased from 10.5 yesterday. CXR was negative for cardiopulmonary processes on arrival V/Q revealed multiple pulmonary emboli Patient is afebrile and nontachycardic. Likely elevated secondary to solumedrol administration for possible COPD exac on arrival. Discontinued solumedrol due to unlikely COPD exac. Steroid taper oral. Qualifiers: Leukocytosis type: bandemia Qualified Code(s): D72.825 - Bandemia (6) CAD (coronary artery disease) Priority: Secondary Status: Chronic Qualifiers: Coronary Disease-Associated Artery/Lesion type: unspecified vessel or lesion type [place] vs. transplanted heart: unspecified whether [place] or transplanted heart Associated angina: angina presence unspecified Qualified Code(s): I25.10 - Atherosclerotic heart disease of [place] coronary artery without angina pectoris (7) HTN (hypertension) Priority: Secondary Status: Chronic Comments: Bp 176/76, otherwise hemodynamically stable on room air. Continue home medications for chronic disease management, Metoprolol XL 50mg. Pressures continuing to rise despite increased losartan dose. Hydralazine 5 mg prn if sbp >180. Qualifiers: Hypertension type: essential hypertension Qualified Code(s): I10 - Essential (primary) hypertension (8) PAD (peripheral artery disease) Priority: Secondary Status: Chronic Comments: History of aorto-fem bypass. Patient has not been on aspirin since last admission and used to be on plavix, but was discontinued from [facility] due to cost. Continue heparin drip discontinued d5. CTA 02/23/17 revealed no pulmonary emboli. Heparin sq q8h ordered for dvt ppx. No anticoagulation recommended at this time due to gi bleed. (9) CKD (chronic kidney disease), stage III Priority: Primary Status: Chronic Comments: At baseline. Cr 1.54 on arrival to ED. [facility], therefore unable to get Chest CTA. Cr 1.00 today. Continue monitoring. Hold nephrotoxic agents. (10) HLD (hyperlipidemia) Priority: Secondary Status: Chronic Qualifiers: Hyperlipidemia type: unspecified Qualified Code(s): E78.5 - Hyperlipidemia , unspecified (11) Tobacco use disorder, moderate, in early remission, dependence Priority: Secondary Status: Acute (12) PTSD (post-traumatic stress disorder) Priority: Secondary Status: Chronic Comments: Doxepin 10mg not on formulary, closest is 25mg. Hold medication due to nonformulary, patient unable to get home medications. - Discharge Medications Prescriptions: Folic Acid 1 mg PO DAILY #14 tablet Losartan [Cozaar] 25 mg PO DAILY #30 tablet PredniSONE 10 mg PO DAILY #39 tablet Home Medications: Albuterol Sulfate [Albuterol Inhaler] 2 puff IH Q6H PRN 02/10/17 [History] Doxepin HCl 10 mg PO HS 02/10/17 [History] L. Acidophilus/Pectin, [place] [Acidophilus Probiotic Capsule] 1 cap PO TID 02/10 [History] Metoprolol XL (24 HR) Succ [Toprol Xl] 50 mg PO DAILY 02/10/17 [History] HYDROcodone/Acet 5/325 mg [[place] 5-325 mg] 1 tab PO Q8HR PRN #10 tab 02/13/17 [ Rx] Calcium Carbonate/Vitamin D3 [Calcium 1,000 + D3 Caplet] 1 tab PO DAILY [History] Cholecalciferol (D-3) [Vitamin D] 1,000 unit PO DAILY 02/20/17 [History] Simvastatin [Zocor] 40 mg PO HS 02/20/17 [History] Folic Acid 1 mg PO DAILY #14 tablet 02/24/17 [Rx] Losartan [Cozaar] 25 mg PO DAILY #30 tablet 02/24/17 [Rx] PredniSONE 10 mg PO DAILY #39 tablet 02/24/17 [Rx] Allergies/Adverse Reactions: Allergies gabapentin Allergy (Verified 02/10/17 21:05) See Comments hydrochlorothiazide Allergy (Verified 02/10/17 21:05) See Comments hydroxyzine [From Vistaril] Allergy (Verified 02/10/17 21:05) See Comments Procedures/tests Complete & Pending: Procedures Performed prior 72 hours Category Date Time Status CT angio chest [CT] Routine Cat Scan 02/23/17 10:00 Completed Date of admission: 02/20/17 00:32 Primary care physician: [facility] Consults: 02/20/17 11:23 Consult to Gastroenterology [CONS] Routine Consulting Provider: Gastroenterology Allegra Reason for Consult: Recent admission 02/11/17 for gi bleed, likely secondary to ischemic colitis. Hb on discharge 11.4. Patient admitted again, this visit for PE. Hb 11.3. No anticoagulation or asa prior to admission. Started on hep drip for PE today. Time Notified: 11:24 Call Completed: Yes 02/22/17 08:34 Consult to Oncology Hematology [CONS] Routine Consulting Provider: Marii Hopson Reason for Consult: Multiple PE. Previously on plavix due to history of CAD and aorto-fem bypass, but unable to afford from [facility]. Was not on aspirin. Recommendations for anticoagulation appreciated. Time Notified: 08:36 Call Completed: Yes 02/22/17 10:45 Consult to Bench Assembler [CONS] Routine Reason for SW Consult: Patient will likely need home oxygen upon discharge. multiple pulmonary emboli. 02/24/17 11:11 Consult to Pulmonology [CONS] Routine Consulting Provider: Pulm Crit Care & Sleep Allegra Reason for Consult: Patient with history of COPD and aorto-fem bypass admitted with PE, recent CTA negative, was on heparin drip for 5 days. Hemonc wants Pulm consult, Hemonc completing workup, no anticoagulation due to gi bleed, secondary to ischemic colitis. Time Notified: 11:12 Call Completed: Yes Discharging clinician: Khurram Garcia (Jatin Damon) Anticipated date of discharge: 02/24/17 - Patient Status Disposition: Home, Self-Care Condition: Fair Functional capacity at discharge: independent ambulation Overall status at discharge: patient is progressing back to baseline - Discharge Instructions Instructions: Prednisone (By mouth), Folic Acid (By mouth), Losartan (By mouth) Follow Up With: Jaime Livingston MD [Partnered Physician] - [facility],PCP [Primary Care Provider] - 03/02/17 2:30 pm Chaz English MD [Partnered Physician] - Marii Hopson MD [Partnered Physician] - Additional Instructions: Patient sent home with prescriptions for hypertension (losartan), taper of steroids (prednisone), and folic acid. Take steroids as directed. Take 6 10mg tablets for three days, then decrease to 4 10mg tablets for three days, then decrease to 2 10mg tablets for three days ,m then decrease to 1 10mg tablet for three days. Follow up with your primary care physician within 7 days regarding this hospital stay for pulmonary embolism vs copd exacerbation. Follow up with Dr. English (Gastroenterology) within the next 10-14 days regarding your gi bleed secondary to ischemic colitis. Follow up with HemOnc regarding recommendations regarding your anticoagulation due to aort-fem bypass. Follow up with Pulmonology within 7-10 days regarding your COPD and this hospital stay. - Diet and Activity Activity: increase activity as tolerated Diet: low fat, low cholesterol, low salt diet Interval History: Patient reports that he did well overnight, no shortness of breath, no weakness. Patient has more energy than even yesterday. he is quite agitated regarding continuance of his hospital stay and has been ready to leave for several days now. Patient denies fevers, chills, sweats, headaches, nausea, vomiting, chest pain, abdominal pain, changes in bowels or bladder, weakness, or loss of sensation. Patient tolerated diet overnight. HemOnc note reviewed, ordered d-dimer this morning, other tests pending. Hospital course: Mr. Luna is a 66 year old male with history of CAD, PVD, aorto-fem bypass, htn , hld, COPD, and CKD stage 3 who was transferred from the [facility] ED with complaint of worsening shortness of breath and pleuritic chest pain for the past couple weeks. Patient also reports history of tobacco use with cessation 1 week prior. Patient was recently discharge 02/10/17 for gi bleed secondary to colitis. Patient has not been taking aspirin since discharge and is not on any other anticoagulant. Patient was determined to have Cr >2.0 therefore patient was transferred for V/Q suspecting possible PE. V/Q scan revealed multiple various sized segmental and subsegmental matched vent-perf defects throughout both lungs consistent with intermediate probability for pulmonary embolism. EKG revealed sinus tachy with occasional PAC, rate [address] changes or t wave inversions. Troponin was 0.03 x2. D-dimer elevated at 1608, BNP 157, Hemoccult positive stool. Patient started on heparin drip and solumedrol suspecting possible COPD exacerbation, required 3L nasal cannula. Doppler of lower extremities were negative. HemOnc was consulted for recommendations regarding anticoagulation, recommended CTA. CTA on d4 was negative for pulmonary embolism, HemOnc continued following and ordered additional workup which was negative upon most recent review. Pulmonary was consulted and recommended outpatient follow up. GI and HemOnc recommends no anticoagulation for this patient at this time due to gi bleed likely secondary to ischemic colitis. Patient to get colonoscopy per GI recommendations in 3-5 weeks as outpatient. Patient to follow up with HemOnc within 7-10 days. Patient to follow up with PCP within 7 days of discharge regarding this hospital stay. - Time Spent with Patient Total time spent providing and/or coordinating discharge services: Greater than 30 minutes - Constitutional Vitals: Temp Pulse Resp BP Pulse Ox 98.2 F 70 16 176/83 92 02/24/17 07:35 02/24/17 07:35 02/24/17 07:35 02/24/17 11:29 02/24/17 07:35 General appearance: Present: cachectic, cooperative, A&O X 3, pleasant, no acute distress, answers questions appropriately - Head Head exam: Present: atraumatic, normal inspection, normocephalic - Eye Eye exam: Present: normal appearance - ENT ENT exam: Present: mucous membranes moist, normal exam, normal external ear exam , normal oropharynx - Neck Neck exam general surgery: Present: full ROM, normal inspection, supple, trachea midline. Absent: tenderness - Respiratory Respiratory exam: Present: wheezes. Absent: rales, rhonchi - Cardiovascular Cardiovascular exam: Present: RRR, +S1, +S2 - GI/Abdominal GI/Abdominal exam: Present: normal bowel sounds, soft. Absent: distended, guarding, tenderness - Extremities Exam Extremities exam: Present: full ROM, normal inspection, warm. Absent: pedal edema, tenderness - Neurological Exam Neurological exam: Present: alert, oriented X3, no focal deficits, strengths equal and symetr throughout. Absent: facial droop, speech deficit - Psychiatric Psychiatric exam: Present: normal affect, normal mood - Skin Skin exam: Present: dry, intact, normal color, warm. Absent: diaphoretic, erythema, pallor <Radha,Khurram P - Last Filed: 02/24/17 16:48> Date of Encounter: 02/24/17 Procedures/tests Complete & Pending: Procedures Performed prior 72 hours Category Date Time Status CT angio chest [CT] Routine Cat Scan 02/23/17 10:00 Completed Date of admission: 02/20/17 00:32 Primary care physician: PCP [facility] Consults: 02/20/17 11:23 Consult to Gastroenterology [CONS] Routine Consulting Provider: Gastroenterology Allegra Reason for Consult: Recent admission 02/11/17 for gi bleed, likely secondary to ischemic colitis. Hb on discharge 11.4. Patient admitted again, this visit for PE. Hb 11.3. No anticoagulation or asa prior to admission. Started on hep drip for PE today. Time Notified: 11:24 Call Completed: Yes 02/22/17 08:34 Consult to Oncology Hematology [CONS] Routine Consulting Provider: Marii Hopson Reason for Consult: Multiple PE. Previously on plavix due to history of CAD and aorto-fem bypass, but unable to afford from [place]. Was not on aspirin. Recommendations for anticoagulation appreciated. Time Notified: 08:36 Call Completed: Yes 02/22/17 10:45 Consult to Bench Assembler [CONS] Routine Reason for SW Consult: Patient will likely need home oxygen upon discharge. multiple pulmonary emboli. 02/24/17 11:11 Consult to Pulmonology [CONS] Routine Consulting Provider: Pulm Crit Care & Sleep Allegra Reason for Consult: Patient with history of COPD and aorto-fem bypass admitted with PE, recent CTA negative, was on heparin drip for 5 days. Hemonc wants Pulm consult, Hemonc completing workup, no anticoagulation due to gi bleed, secondary to ischemic colitis. Time Notified: 11:12 Call Completed: Yes Hospital course: Mr. Luna is a 66 year old male - Time Spent with Patient Total time spent providing and/or coordinating discharge services: - Constitutional Vitals: Temp Pulse Resp BP Pulse Ox 98.2 F 70 16 176/83 92 02/24/17 07:35 02/24/17 07:35 02/24/17 07:35 02/24/17 11:29 02/24/17 07:35 - Attending Attestation I examined this patient and my medical decision-making was reviewed with the GRAVE CLEANER/PA/Advanced Practice Nurse/Resident Physician. I agree with the documented findings, disposition and treatment plan as described except to the extent set forth below.
[2017-02-25] MEDS ORDERED: predniSONE 20 MG TABLET PO SCH (09:00)
[2017-02-26 07:35] LABS: ANA IgG by ELISA NONE DETECTED (None Detected)
[2017-02-26 20:49] LABS: Kappa Qnt Free Light Chains 1.94 mg/dL (0.33-1.94); Lambda Qnt Free Light Chains 2.25 mg/dL (0.57-2.63)
[2017-02-28 04:01] LABS: Alpha 2 Globulin (PEP) 1.01 g/dL (0.48-1.05); Beta Globulin (PEP) 0.64 g/dL (0.48-1.10)
[2017-03-01 08:13] LABS: IFE Reflexed IFE Done; Immunoglobulin A 348 mg/dL (68-408); Immunoglobulin G 1050 mg/dL (768-1632); Immunoglobulin M 66 mg/dL (35-263)
== END 2017-02-24 15:47 | disposition home or self-care (01) | DRG 394 ==
LOC: EMEROO 20:19 → 2NENU 02-20 00:32
PROVIDERS: ADMIT Internal Medicine; ATTEND Internal Medicine

== ENCOUNTER 2018-05-11 16:46 | Inpatient (IN) ==
[2018-05-11] MEDS ORDERED: Isovue-370 500 ML INFUS..BTL IV ONE (17:08)
[2018-05-11] MEDS ORDERED: *HR* FentaNYL (PF) 100 MCG/2 ML VIAL IVP ONE ×2 (17:09→19:05)
--- NOTE | 2018-05-11 17:21 | Emergency Department Note ---
Disposition Clinical Impression: Acute occlusion of artery, Occlusion of left femoral artery Disposition: Admitted As Inpatient [facility]: [facility] [Primary Care Provider[facility] - Forms: ED Satisfaction Letter Time of Disposition: 19:25 General Adult HPI - General Chief complaint: ED Extremity Problem,Nontraumatic Stated complaint: no blood going to left foot Time Seen by Provider: 05/11/18 16:50 Source: patient Limitations: no limitations - History of Present Illness Pain Scale: 8 - Related Data Home Medications Medication Instructions Recorded Confirmed Albuterol Sulfate [Albuterol 2 puff IH Q6H PRN 02/10/17 02/20/17 Inhaler] Doxepin HCl 10 mg PO HS 02/10/17 02/20/17 L. Acidophilus/Pectin, [place] 1 cap PO TID 02/10/17 02/20/17 [Acidophilus Probiotic Capsule] Metoprolol XL (24 HR) Succ [Toprol 50 mg PO DAILY 02/10/17 02/20/17 Xl] Calcium Carbonate/Vitamin D3 1 tab PO DAILY 02/20/17 02/20/17 [Calcium 1,000 + D3 Caplet] Cholecalciferol (D-3) [Vitamin D] 1,000 unit PO DAILY 02/20/17 02/20/17 Simvastatin [Zocor] 40 mg PO HS 02/20/17 02/20/17 Previous Rx's Medication Instructions Recorded HYDROcodone/Acet 5/325 mg [[place] 1 tab PO Q8HR PRN #10 tab 02/13/17 5-325 mg] Folic Acid 1 mg PO DAILY #14 tablet 02/24/17 Losartan [Cozaar] 25 mg PO DAILY #30 tablet 02/24/17 predniSONE [PredniSONE] 10 mg PO DAILY #39 tablet 02/24/17 Allergies Allergy/AdvReac Type Severity Reaction Status Date / Time gabapentin Allergy See Verified 02/10/17 21:05 Comments hydrochlorothiazide Allergy See Verified 02/10/17 21:05 Comments hydroxyzine [From Vistaril] Allergy See Verified 02/10/17 21:05 Comments Past Medical History - Past Medical History Medical history: Reports: COPD, hyperlipidemia, hypertension, peripheral artery disease Surgical history: Reports: herniorrhaphy, LE Bypass, LE stent(s), LE vascular intervention, vascular surgery Psychiatric history: Reports: anxiety, depression, PTSD - Social History Smoking Status: Current every day smoker Smokeless Tobacco Status: No Alcohol use: Reports: none Drug use: Reports: none Physical Exam - General Limitations: no limitations General appearance: alert, anxious Course Vital Signs Temperature 97.2 F L 05/11/18 16:49 Pulse Rate 78 05/11/18 16:49 Respiratory Rate 18 05/11/18 16:49 Blood Pressure 142/76 05/11/18 16:49 O2 Sat by Pulse Oximetry 98 05/11/18 16:49 Temperature 97.2 F L 05/11/18 16:49 Pulse Rate 80 05/11/18 17:55 Respiratory Rate 18 05/11/18 17:55 Blood Pressure 119/75 05/11/18 17:55 O2 Sat by Pulse Oximetry 97 05/11/18 17:55 Oxygen Delivery Oxygen Delivery Room Air Medical Decision Making - Lab Data Result diagrams: 05/11/18 17:07 05/11/18 17:07 Lab Results 05/11/18 05/11/18 05/11/18 Range/Units 17:07 17:07 17:07 WBC 8.8 (4.3-11.1) K/mcL RBC 4.14 L (4.19-5.50) M/mcL Hgb 12.5 L (12.9-16.9) g/dL Hct 37.8 (37.5-50.1) % MCV 91.3 (83.0-100.0) fL MCH 30.2 (28.0-33.3) pg MCHC 33.1 (31.6-35.5) g/dL RDW 13.9 (11.5-14.5) % Plt Count 208 (140-400) K/mcL MPV 12.0 (9.4-12.4) fL Immature Gran % 0.5 (0-4) % Seg Neutrophils % 70.8 % Lymphocytes % 18.8 % Monocytes % 7.2 % Eosinophils % 2.2 % Basophils % 0.5 % Neutrophils # 6.3 (1.6-8.9) K/mcL Lymphocytes # 1.7 (0.6-4.6) K/mcL Monocytes # 0.6 (0.0-1.3) K/mcL Eosinophils # 0.2 (0.0-0.6) K/mcL Basophils # 0.0 (0.0-0.2) K/mcL PT 11.5 (9.4-12.1) Seconds INR 1.1 APTT 37.7 H (26.0-36.0) Seconds Sodium 140 (136-145) mEq/L Potassium 3.9 (3.5-5.1) mEq/L Chloride 108 H (98-107) mEq/L Carbon Dioxide 26 (23-29) mEq/L BUN 11 (8-23) mg/dL Creatinine 1.12 (0.70-1.30) mg/dL Est GFR ( Amer) > 60 (> 60) Est GFR (Non-Af Amer) > 60 (> 60) BUN/Creatinine Ratio 10 (6-26) Glucose 99 (70-105) mg/dL Calculated Osmolality 289 (280-300) Calcium 10.0 (8.6-10.3) mg/dL Creatine Kinase (30-223) Units/L //18 Range/Units 17:08 WBC (4.3-11.1) K/mcL RBC (4.19-5.50) M/mcL Hgb (12.9-16.9) g/dL Hct (37.5-50.1) % MCV (83.0-100.0) fL MCH (28.0-33.3) pg MCHC (31.6-35.5) g/dL RDW (11.5-14.5) % Plt Count (140-400) K/mcL MPV (9.4-12.4) fL Immature Gran % (0-4) % Seg Neutrophils % % Lymphocytes % % Monocytes % % Eosinophils % % Basophils % % Neutrophils # (1.6-8.9) K/mcL Lymphocytes # (0.6-4.6) K/mcL Monocytes # (0.0-1.3) K/mcL Eosinophils # (0.0-0.6) K/mcL Basophils # (0.0-0.2) K/mcL PT (9.4-12.1) Seconds INR APTT (26.0-36.0) Seconds Sodium (136-145) mEq/L Potassium (3.5-5.1) mEq/L Chloride (98-107) mEq/L Carbon Dioxide (23-29) mEq/L BUN (8-23) mg/dL Creatinine (0.70-1.30) mg/dL Est GFR ( Amer) (> 60) Est GFR (Non-Af Amer) (> 60) BUN/Creatinine Ratio (6-26) Glucose (70-105) mg/dL Calculated Osmolality (280-300) Calcium (8.6-10.3) mg/dL Creatine Kinase 59 (30-223) Units/L Critical Care Time Critical Care Time: Yes Total Critical Care Time: 40 Attestation: Critical care performed: Time is exclusive of separately billable procedures. Time includes: direct patient care, patient reassessment, coordination of patient care, interpretation of data (laboratory data, radiology data, and respiratory data), review of patient's medical records, medical consultation and documentation of patient care. Procedures included in critical care time: Procedures excluded from critical care time: Attestation Statement - Attestation Attestation: I examined this patient and my medical decision-making was reviewed with the Resident Physician. I agree with the documented findings, disposition and treatment plan as described except to the extent set forth below. Patient presents to the ED with a chief complaint of left leg pain. Onset about a week ago. [facility] that he would get his leg checked while he was there. He had an abnormal JOHN so he comes for evaluation by vascular surgery. Patient has had a prior aorto bypass about 8 years ago in [place]. He describes a bypass of his aorta to his iliacs with stenting of his femorals, however this medical history is not available. On examination his left. Foot is pink. It is cold to touch. No palpable pulses. Plan. Discussed with vascular. Patient with an acute arterial occlusion in the left moral. He was evaluated in the department by vascular surgery. Heparin drip started. Patient is admitted to surgery.
[2018-05-11 18:06] LABS: Basophils % 0.5 %; Eosinophils # 0.2 K/mcL (0.0-0.6); Eosinophils % 2.2 %; Hematocrit 37.8 % (37.5-50.1); Hemoglobin 12.5 g/dL (12.9-16.9); Immature Granulocytes % 0.5 % (0-4); Lymphocytes # 1.7 K/mcL (0.6-4.6); Lymphocytes % 18.8 %; Mean Corpuscular HGB Conc 33.1 g/dL (31.6-35.5); Mean Corpuscular Hemoglobin 30.2 pg (28.0-33.3); Mean Corpuscular Volume 91.3 fL (83.0-100.0); Monocytes # 0.6 K/mcL (0.0-1.3); Monocytes % 7.2 %; Neutrophils # 6.3 K/mcL (1.6-8.9); Platelet Count 208 K/mcL (140-400); Red Blood Count 4.14 M/mcL (4.19-5.50); Red Cell Distribution Width 13.9 % (11.5-14.5); Segmented Neutrophils % 70.8 %
[2018-05-11 18:17] LABS: INR 1.1; Prothrombin Time 11.5 Seconds (9.4-12.1)
[2018-05-11 18:19] LABS: Activated Partial Thrombo Time 37.7 Seconds (26.0-36.0)
[2018-05-11 18:20] LABS: BUN/Creatinine Ratio 10 (6-26); Blood Urea Nitrogen 11 mg/dL (8-23); Carbon Dioxide 26 mEq/L (23-29); Chloride 108 mEq/L (98-107); Glucose 99 mg/dL (70-105); Osmolality,Calculated 289 (280-300); Potassium 3.9 mEq/L (3.5-5.1); Sodium 140 mEq/L (136-145); eGFR For African Americans > 60 (> 60); eGFR For Non-African Americans > 60 (> 60)
--- NOTE | 2018-05-11 18:33 | Emergency Department Note ---
Disposition Clinical Impression: Acute occlusion of artery, Femoral artery occlusion, left Disposition: Admitted As Inpatient Condition: Fair Time of Disposition: 19:31 Extremity Problem HPI - General Chief complaint: ED Extremity Problem,Nontraumatic Stated complaint: no blood going to left foot Time Seen by Provider: 05/11/18 16:50 Source: patient Limitations: no limitations Nursing Notes Reviewed: Yes Vital Signs Reviewed: Yes - History of Present Illness HPI Narrative: Patient is a 67-year-old male who presents to [facility] ED with a chief complaint of left lower extremity pain and hyperesthesia and cool extremity. Patient has a history of peripheral artery disease status post bypass stenting 12 years ago done at [facility] [place]. states he felt acute onset of pain in the popliteal region of his left leg approximately one week ago. Ever since then, he has been having excruciating pain even despite to palpation of the skin below the popliteal region on all sides. He has pain with ambulation. Denies any nausea, vomiting, fever or chills. No chest pain or difficulty breathing, pain problems with urination or bowel movements. Pt Subjective Complaint: extremity pain, cold extremity Onset (ago): week(s) (1) Consistency: Worsening Injury Location: left, lower extremity Pain Scale: 8 Quality: aching Radiation: distal Improves with: nothing Worsens with: range of motion, weight bearing, walking, palpation Associated symptoms: Reports: denies other symptoms. Denies: chest pain, shortness of breath, abdominal pain, back pain, fever, change in appearance, swelling, redness - Related Data Home Medications Medication Instructions Recorded Confirmed Albuterol Sulfate [Albuterol 2 puff IH Q6H PRN 02/10/17 02/20/17 Inhaler] L. Acidophilus/Pectin, [place] 1 cap PO TID 02/10/17 02/20/17 [Acidophilus Probiotic Capsule] Calcium Carbonate/Vitamin D3 1 tab PO DAILY 02/20/17 02/20/17 [Calcium 1,000 + D3 Caplet] Cholecalciferol (D-3) [Vitamin D] 1,000 unit PO DAILY 02/20/17 02/20/17 Simvastatin [Zocor] 40 mg PO HS 02/20/17 02/20/17 Amlodipine Besylate 10 mg PO DAILY 05/11/18 05/11/18 Atorvastatin [Lipitor] 40 mg PO HS 05/11/18 05/11/18 Docusate Sodium [Dok] 100 mg PO BID 05/11/18 05/11/18 Ipratropium/Albuterol Neb [Duoneb] 3 ml IH Q4HR PRN 05/11/18 05/11/18 Lactobacillus Acidophilus 1 tab PO BID 05/11/18 05/11/18 [Probiotic Acidophilus] Losartan Potassium [Cozaar] 50 mg PO DAILY 05/11/18 05/11/18 Melatonin [Melatin] 12 mg PO HS 05/11/18 05/11/18 Methocarbamol [Robaxin-750] 750 mg PO TID PRN 05/11/18 05/11/18 Naproxen [Naprosyn] 500 mg PO BID 05/11/18 05/11/18 Ranitidine HCl [Acid Hollow Handle Knife Assembler] 150 mg PO BID 05/11/18 05/11/18 Trazodone HCl 100 mg PO HS 05/11/18 05/11/18 Allergies Allergy/AdvReac Type Severity Reaction Status Date / Time gabapentin Allergy See Verified 02/10/17 21:05 Comments hydrochlorothiazide Allergy See Verified 02/10/17 21:05 Comments hydroxyzine [From Vistaril] Allergy See Verified 02/10/17 21:05 Comments All systems ED: reviewed and negative except as stated. Past Medical History - Past Medical History Attestation: Yes The following information was validated with the patient. Source: patient Medical history: Reports: COPD, hyperlipidemia, hypertension, peripheral artery disease Surgical history: Reports: herniorrhaphy, LE Bypass, LE stent(s), LE vascular intervention, vascular surgery Psychiatric history: Reports: anxiety, depression, PTSD - Social History Smoking Status: Current every day smoker Smokeless Tobacco Status: No Alcohol use: Reports: none Drug use: Reports: none Physical Exam - General Limitations: no limitations General appearance: alert, anxious - Head Head exam: atraumatic, normocephalic, normal inspection - Eye Eye exam: Present: normal appearance, EOMI - ENT ENT exam: normal exam, normal oropharynx, mucous membranes moist - Neck Neck exam: Present: normal inspection, full ROM, trachea midline - Chest Chest inspection: Present: normal inspection, symmetric chest wall rise - Respiratory Respiratory exam: Present: normal lung sounds bilaterally - Cardiovascular Cardiovascular exam: Present: regular rate, normal rhythm, normal heart sounds - Abdominal Exam Abdominal exam: Present: soft, Non-Tender. Absent: tenderness, distention, guarding, rebound, rigidity - Expanded Lower Extremity Exam Knee exam: Present: tenderness Lower leg exam: Present: tenderness Ankle exam: Present: tenderness Foot/toe exam: Present: tenderness Neurovascular/Tendon exam: Present: pulse deficit (L DP/PT), extremity cold to touch - Back Exam Back exam: Present: normal inspection, full ROM. Absent: tenderness - Neurological Exam Neurological exam: Present: alert, oriented X3 - Psychiatric Psychiatric exam: Present: normal affect, normal mood - Skin Skin exam: Present: warm, dry, intact, normal color Course Course Narrative: Patient seen and examined. Left lower extremity pain below the popliteal region. Concern for an arterial occlusion due to has cooler extremity to touch as well as the severe pains he is experiencing. 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 I discussed with vascular surgeon Dr. Ariza who would like labwork followed by a CTA aorta with runoff. - Reevaluation(s) Reevaluation #1: Patient has a left femoral artery thrombus. Dr. Johnson was down in the emergency department and evaluated the patient at bedside. Would like a heparin drip started. Patient will be admitted to the vascular surgery service. He will be nothing by mouth at midnight. Time: 19:32 Vital Signs Temperature 97.2 F L 05/11/18 16:49 Pulse Rate 78 05/11/18 16:49 Respiratory Rate 18 05/11/18 16:49 Blood Pressure 142/76 05/11/18 16:49 O2 Sat by Pulse Oximetry 98 05/11/18 16:49 Temperature 97.2 F L 05/11/18 16:49 Pulse Rate 80 05/11/18 17:55 Respiratory Rate 18 05/11/18 17:55 Blood Pressure 119/75 05/11/18 17:55 O2 Sat by Pulse Oximetry 97 05/11/18 17:55 Oxygen Delivery Oxygen Delivery Room Air Extremity Problem, Nontraumati - Medical Records Medical records reviewed: Yes I reviewed the patient's medical records. - Lab Data Lab results reviewed: Yes I reviewed the patient's lab results. Result diagrams: 05/11/18 17:07 05/11/18 17:07 Lab Results 05/11/18 05/11/18 05/11/18 Range/Units 17:07 17:07 17:07 WBC 8.8 (4.3-11.1) K/mcL RBC 4.14 L (4.19-5.50) M/mcL Hgb 12.5 L (12.9-16.9) g/dL Hct 37.8 (37.5-50.1) % MCV 91.3 (83.0-100.0) fL MCH 30.2 (28.0-33.3) pg MCHC 33.1 (31.6-35.5) g/dL RDW 13.9 (11.5-14.5) % Plt Count 208 (140-400) K/mcL MPV 12.0 (9.4-12.4) fL Immature Gran % 0.5 (0-4) % Seg Neutrophils % 70.8 % Lymphocytes % 18.8 % Monocytes % 7.2 % Eosinophils % 2.2 % Basophils % 0.5 % Neutrophils # 6.3 (1.6-8.9) K/mcL Lymphocytes # 1.7 (0.6-4.6) K/mcL Monocytes # 0.6 (0.0-1.3) K/mcL Eosinophils # 0.2 (0.0-0.6) K/mcL Basophils # 0.0 (0.0-0.2) K/mcL PT 11.5 (9.4-12.1) Seconds INR 1.1 APTT 37.7 H (26.0-36.0) Seconds Sodium 140 (136-145) mEq/L Potassium 3.9 (3.5-5.1) mEq/L Chloride 108 H (98-107) mEq/L Carbon Dioxide 26 (23-29) mEq/L BUN 11 (8-23) mg/dL Creatinine 1.12 (0.70-1.30) mg/dL Est GFR ( Amer) > 60 (> 60) Est GFR (Non-Af Amer) > 60 (> 60) BUN/Creatinine Ratio 10 (6-26) Glucose 99 (70-105) mg/dL Calculated Osmolality 289 (280-300) Calcium 10.0 (8.6-10.3) mg/dL Creatine Kinase (30-223) Units/L 05/11/18 Range/Units 17:08 WBC (4.3-11.1) K/mcL RBC (4.19-5.50) M/mcL Hgb (12.9-16.9) g/dL Hct (37.5-50.1) % MCV (83.0-100.0) fL MCH (28.0-33.3) pg MCHC (31.6-35.5) g/dL RDW (11.5-14.5) % Plt Count (140-400) K/mcL MPV (9.4-12.4) fL Immature Gran % (0-4) % Seg Neutrophils % % Lymphocytes % % Monocytes % % Eosinophils % % Basophils % % Neutrophils # (1.6-8.9) K/mcL Lymphocytes # (0.6-4.6) K/mcL Monocytes # (0.0-1.3) K/mcL Eosinophils # (0.0-0.6) K/mcL Basophils # (0.0-0.2) K/mcL PT (9.4-12.1) Seconds INR APTT (26.0-36.0) Seconds Sodium (136-145) mEq/L Potassium (3.5-5.1) mEq/L Chloride (98-107) mEq/L Carbon Dioxide (23-29) mEq/L BUN (8-23) mg/dL Creatinine (0.70-1.30) mg/dL Est GFR ( Amer) (> 60) Est GFR (Non-Af Amer) (> 60) BUN/Creatinine Ratio (6-26) Glucose (70-105) mg/dL Calculated Osmolality (280-300) Calcium (8.6-10.3) mg/dL Creatine Kinase 59 (30-223) Units/L - Radiology Data Radiology results reviewed: Yes I reviewed the patient's radiology results. Aorta w/Runoff CTA 05/11/18 17:08 IMPRESSION: 1. Ostial calcification and moderate stenosis at the origin of the superior mesenteric artery with at least 50% vessel narrowing. 2. Aortobifemoral bypass graft identified with complete occlusion of the graft replacing the left common iliac, external iliac and common femoral arteries. [place] bilateral common iliac artery is patent but distally the [place] vessels are occluded. 3. Weak collateral reconstitution of the left SFA with greater than 70% narrowing along its course. 4. More robust opacification of the right SFA; however, 50 to 70% narrowing is identified. 5. In the bilateral legs, tibioperoneal trifurcation is identified. On the left side, there is only 1 to 2 vessel runoff to the foot with primary supply via the posterior tibial artery. On the right, three-vessel runoff to the right foot is identified. 6. There is a 27 x 26 mm ectasia infrarenal abdominal aorta just prior to the bifurcation. 7. Incidental nonvascular findings of bronchiolitis, fatty metamorphosis of the pancreas and a 17 mm left adrenal adenoma. RECOMMENDATIONS: Managing Abdominal Aortic Aneurysms 2.6-2.9 cm: Every 5 years* *For abdominal aortas with maximum diameter of 2.6-2.9 cm meeting criteria for AAA (>50% of proximal normal segment). Reference: J Vasc Surg. 2009 Aug;50(4 Suppl):S2-49 D/ / 05/11/2018 20:00:07 Josue Saleem / jessica Interpreting Provider: Josue Saleem
[2018-05-11] MEDS ORDERED: *HR* Heparin 5,000 UNIT/ML VIAL IVP ONE (19:17)
[2018-05-11] MEDS ORDERED: *HR* Heparin 5,000 UNIT/ML VIAL IVP PRN ×2 (19:17)
[2018-05-11] MEDS ORDERED: Heparin 25,000 UNIT/500 ML D5W 25,000 UNIT/500 ML BAG IVC ONE (19:26)
[2018-05-11] MEDS ORDERED: Heparin 25,000 UNIT/500 ML D5W 25,000 UNIT/500 ML BAG IVC SCH (19:30)
[2018-05-11] MEDS ORDERED: OXYCODONE Oral CONC 10 MG/0.5 ML ORAL.SYG SL PRN ×2 (19:41)
[2018-05-11] MEDS ORDERED: Naloxone 0.4 MG/ML INJ IVP PRN (19:41)
[2018-05-11] MEDS ORDERED: *HR* OxyCODONE Immed Rel 5 MG TABLET PO PRN (19:41)
[2018-05-11] MEDS ORDERED: Acetaminophen 325 MG TABLET PO PRN (19:41)
[2018-05-11] MEDS ORDERED: 0.9 % Sodium Chloride 1,000 ML IVC SCH (19:45)
--- NOTE | 2018-05-11 20:02 | Vascular/Endovascular H&P ---
Date of Encounter: 05/11/18 Time of Encounter: 19:00 Assessment and Plan (1) Atherosclerosis of nonbiologic bypass graft of left leg with rest pain Current Visit: Yes Status: Acute The pathophysiology and natural history of peripheral vascular disease with discussed the patient and all questions were answered. The patient is an occluded left limb of his aortobifemoral bypass. His rest pain he denies ulcerations or gangrene. He also has disabling claudication. His left ankle- brachial index is 0.4. His monophasic pedal signals. The patient will be admitted and started on intravenous heparin. He will be scheduled for revascularization. The risks, benefits and alternatives were discussed and all questions were answered. He expressed understanding and is agreeable to the plan. (2) Chronic disease anemia Current Visit: Yes Status: Chronic (3) COPD (chronic obstructive pulmonary disease) Current Visit: No Status: Chronic Qualifiers: COPD type: emphysema Emphysema type: panlobular Qualified Code(s): J43.1 - Panlobular emphysema (4) HLD (hyperlipidemia) Current Visit: No Status: Chronic Qualifiers: Hyperlipidemia type: mixed hyperlipidemia Qualified Code(s): E78.2 - Mixed hyperlipidemia (5) HTN (hypertension) Current Visit: No Status: Chronic Qualifiers: Hypertension type: essential hypertension Qualified Code(s): I10 - Essential (primary) hypertension (6) Nicotine dependence Current Visit: No Status: Chronic He was counseled on smoking cessation. Qualifiers: Nicotine product type: cigarettes Substance use status: unspecified nicotine-induced disorder Qualified Code(s): F17.219 - Nicotine dependence, cigarettes, with unspecified nicotine-induced disorders History of Present Illness Chief complaint: Left lower extremity pain HPI: Mr. Luna is a 67 year old male with a history of multiple medical comorbidities including peripheral vascular disease, hypertension, hyperlipidemia, tobacco abuse and COPD. The patient has a history of an aortobifemoral bifemoral bypass graft placement and abdominal aortic aneurysm. He reports that both were fixed at the same time. His procedures were performed several years ago, but he is unsure of the exact date. The patient presents to [facility] after being seen at the [facility] today. He complains of a one-week history of severe left lower extremity claudication and rest pain in his calf and foot. He denies ulcers or gangrene. He reports an acute onset of his symptoms. Due to the fact that it did not resolve he came for further evaluation. He denies any chest pain or shortness of breath. Past Med Surg Social Fam HX - Past Medical History Medical history: COPD, hyperlipidemia, hypertension, peripheral artery disease Additional medical history: aortic aneurysm, tinnitis, lumbar ddd, erectile dysfunction, stenosis of carotid artery Psychiatric history: anxiety, depression, PTSD - Past Surgical History Surgical History: herniorrhaphy, LE Bypass, LE stent(s), LE vascular intervention, vascular surgery Additional surgical history: anuersym sx., Back surgery. Bial bypass legs - Social History Smoking Status: Current every day smoker Smokeless Tobacco Status: No Alcohol use: none Drug use: none - Family History Mother Hx Family Endocrine Disorder: Yes Father Hx Family Endocrine Disorder: Yes Medications and Allergies Albuterol Sulfate [Albuterol Inhaler] 2 puff IH Q6H PRN 02/10/17 [History] L. Acidophilus/Pectin, [place] [Acidophilus Probiotic Capsule] 1 cap PO TID 02/10 [History] Metoprolol XL (24 HR) Succ [Toprol Xl] 50 mg PO DAILY 02/10/17 [History] Calcium Carbonate/Vitamin D3 [Calcium 1,000 + D3 Caplet] 2 tab PO BID 02/20/17 [ History] Cholecalciferol (D-3) [Vitamin D] 1,000 unit PO DAILY 02/20/17 [History] Simvastatin [Zocor] 40 mg PO HS 02/20/17 [History] Amlodipine Besylate 10 mg PO DAILY 05/11/18 [History] Atorvastatin [Lipitor] 40 mg PO HS 05/11/18 [History] Docusate Sodium [Dok] 100 mg PO BID 05/11/18 [History] Ipratropium/Albuterol Neb [Duoneb] 3 ml IH Q4HR PRN 05/11/18 [History] Lactobacillus Acidophilus [Probiotic Acidophilus] 1 tab PO BID 05/11/18 [History ] Losartan Potassium [Cozaar] 50 mg PO DAILY 05/11/18 [History] Melatonin [Melatin] 12 mg PO HS 05/11/18 [History] Methocarbamol [Robaxin-750] 750 mg PO TID PRN 05/11/18 [History] Naproxen [Naprosyn] 500 mg PO BID 05/11/18 [History] Ranitidine HCl [Acid Heavy Equipment Sales Associate] 150 mg PO BID 05/11/18 [History] Trazodone HCl 100 mg PO HS 05/11/18 [History] 3 Allergy/AdvReac Type Severity Reaction Status Date / Time gabapentin Allergy See Verified 02/10/17 21:05 Comments hydrochlorothiazide Allergy See Verified 02/10/17 21:05 Comments hydroxyzine [From Vistaril] Allergy See Verified 02/10/17 21:05 Comments All Systems Review: The remainder of the systems were reviewed and are negative - Constitutional Constitutional: no chills, no fever(s) - Cardiovascular Cardiovascular: no chest pain at rest, no dyspnea at rest - Gastrointestinal Gastrointestinal: no abdominal pain Exam General: Present: Conversant, No Apparent Distress HEENT: Present: Atraumatic, Normocephaly, Trachea midline, Pupils equal Neck: Absent: Left Carotid bruit, Right Carotid bruit Cardiac: Present: Reg Rate and Rhythm, Normal S1 and S2 Lungs: Present: Normal Breath Sounds, No Wheeze, Rales, Rhonchi Neuro: Present: Alert and responsive, Motor nerves grossly intact (Motor exam intact bilateral lower extremities), Sensory nerves grossly intact (The patient was a mild sensory deficits on the left lateral house.) Abdomen: Present: Soft, Non-tender. Absent: Masses Vascular: Present: Normal capillary refill, Pulse, diminished (Pedal signals biphasic on the right and monophasic on the left.). Absent: Cyanosis, Edema Skin: Present: No rashes noted on visualized skin Musculoskeletal: Present: No Chest Wall Tenderness Results 05/11/18 17:07 05/11/18 17:07 - Imaging / Other Tests CT/CTA: report reviewed, image reviewed (Left limb of his aortobifemoral bypass graft is occluded.)
[2018-05-11] MEDS: Nicotine 21 MG PATCH.TD24 TD SCH (22:09)
[2018-05-11] MEDS: *HR* HYDROcodone/Acet 5/325 mg TABLET PO PRN (22:13)
[2018-05-12 01:41] LABS: Basophils # 0.1 K/mcL (0.0-0.2); Basophils % 0.7 %; Eosinophils # 0.3 K/mcL (0.0-0.6); Hematocrit 35.5 % (37.5-50.1); Hemoglobin 11.8 g/dL (12.9-16.9); Immature Granulocytes % 0.1 % (0-4); Lymphocytes # 2.4 K/mcL (0.6-4.6); Lymphocytes % 27.6 %; Mean Corpuscular HGB Conc 33.2 g/dL (31.6-35.5); Mean Corpuscular Hemoglobin 30.4 pg (28.0-33.3); Mean Corpuscular Volume 91.5 fL (83.0-100.0); Mean Platelet Volume 11.8 fL (9.4-12.4); Monocytes # 0.7 K/mcL (0.0-1.3); Monocytes % 8.5 %; Neutrophils # 5.1 K/mcL (1.6-8.9); Platelet Count 194 K/mcL (140-400); Red Blood Count 3.88 M/mcL (4.19-5.50); Red Cell Distribution Width 13.9 % (11.5-14.5); Segmented Neutrophils % 59.1 %
[2018-05-12 02:01] LABS: BUN/Creatinine Ratio 11 (6-26); Blood Urea Nitrogen 12 mg/dL (8-23); Calcium 9.4 mg/dL (8.6-10.3); Carbon Dioxide 26 mEq/L (23-29); Chloride 108 mEq/L (98-107); Glucose 113 mg/dL (70-105); Osmolality,Calculated 289 (280-300); Potassium 4.1 mEq/L (3.5-5.1); Sodium 139 mEq/L (136-145); eGFR For African Americans > 60 (> 60); eGFR For Non-African Americans > 60 (> 60)
[2018-05-12] MEDS: *HR* HYDROcodone/Acet 5/325 mg TABLET PO PRN ×3 (04:44→19:59)
[2018-05-12] MEDS: Nicotine 21 MG PATCH.TD24 TD SCH (07:34)
[2018-05-12] MEDS ORDERED: *HR* Midazolam HCl 2 MG/2 ML VIAL ONE (10:53)
[2018-05-12] MEDS ORDERED: *HR* Propofol 200 MG/20 ML VIAL IVP ONE (10:53)
[2018-05-12] MEDS ORDERED: *HR* FentaNYL (PF) 100 MCG/2 ML VIAL ONE (10:53)
[2018-05-12] MEDS ORDERED: Dexamethasone 4 MG/ML VIAL ONE (10:55)
[2018-05-12] MEDS ORDERED: Lidocaine -MPF 2% 2 ML VIAL ONE (10:55)
[2018-05-12] MEDS ORDERED: *HR* Rocuronium Bromide 50 MG/5 ML VIAL ONE (10:55)
[2018-05-12] MEDS ORDERED: Ondansetron 4 MG/2 ML VIAL ONE (10:55)
--- NOTE | 2018-05-12 11:02 | Anesthesia Evaluation PreOp ---
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 Acidophilus/Pectin, [place] [Acidophilus Probiotic Capsule] 1 cap PO TID 02/10 [History] Calcium Carbonate/Vitamin D3 [Calcium 1,000 + D3 Caplet] 2 tab PO BID 02/20/17 [ History] Cholecalciferol (D-3) [Vitamin D] 1,000 unit PO DAILY 02/20/17 [History] Simvastatin [Zocor] 40 mg PO HS 02/20/17 [History] Amlodipine Besylate 10 mg PO DAILY 05/11/18 [History] Atorvastatin [Lipitor] 40 mg PO HS 05/11/18 [History] Docusate Sodium [Dok] 100 mg PO BID 05/11/18 [History] Ipratropium/Albuterol Neb [Duoneb] 3 ml IH Q4HR PRN 05/11/18 [History] Lactobacillus Acidophilus [Probiotic Acidophilus] 1 tab PO BID 05/11/18 [History ] Losartan Potassium [Cozaar] 50 mg PO DAILY 05/11/18 [History] Melatonin [Melatin] 12 mg PO HS 05/11/18 [History] Methocarbamol [Robaxin-750] 750 mg PO TID PRN 05/11/18 [History] Naproxen [Naprosyn] 500 mg PO BID 05/11/18 [History] Ranitidine HCl [Acid Solution Engineer] 150 mg PO BID 05/11/18 [History] Trazodone HCl 100 mg PO HS 05/11/18 [History] 3 Allergy/AdvReac Type Severity Reaction Status Date / Time gabapentin Allergy See Verified 02/10/17 21:05 Comments hydrochlorothiazide Allergy See Verified 02/10/17 21:05 Comments hydroxyzine [From Vistaril] Allergy See Verified 02/10/17 21:05 Comments - Meds/Allergy Pre-op Review Medications Reviewed: Yes Allergies Reviewed: Yes Beta Blockers on Current Med List: No Anesthesia Results - Labs 05/12/18 01:28 05/12/18 01:28 - Imaging EKG: report reviewed, image reviewed, other (sinus rhythm) Additional studies: CTA aorta with runoff 05/11/2018 IMPRESSION: 1. Ostial calcification and moderate stenosis at the origin of the superior mesenteric artery with at least 50% vessel narrowing. 2. Aortobifemoral bypass graft identified with complete occlusion of the graft replacing the left common iliac, external iliac and common femoral arteries. [place] bilateral common iliac artery is patent but distally the [place] vessels are occluded. 3. Weak collateral reconstitution of the left SFA with greater than 70% narrowing along its course. 4. More robust opacification of the right SFA; however, 50 to 70% narrowing is identified. 5. In the bilateral legs, tibioperoneal trifurcation is identified. On the left side, there is only 1 to 2 vessel runoff to the foot with primary supply via the posterior tibial artery. On the right, three-vessel runoff to the right foot is identified. 6. There is a 27 x 26 mm ectasia infrarenal abdominal aorta just prior to the bifurcation. 7. Incidental nonvascular findings of bronchiolitis, fatty metamorphosis of the pancreas and a 17 mm left adrenal adenoma. Impressions: Echo 02/2017 LVEF 60%. Normal left ventricular size and systolic function. There is evidence of mild diastolic dysfunction of the left ventricle. Normal right ventricular size and function. No significant valvular dysfunction. No pulmonary hypertension. 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
[2018-05-12] MEDS ORDERED: Acetaminophen IV 1,000 MG/100 ML INFUS..BTL ONE (11:54)
[2018-05-12] MEDS ORDERED: CeFAZolin Syr 2,000MG/20 ML 2,000 MG/20 ML SYRINGE IVPB ONE (11:57)
[2018-05-12] MEDS ORDERED: Vancomycin 1,000 MG VIAL ONE ×2 (11:58→12:53)
[2018-05-12] MEDS ORDERED: Heparin 1,000 UNITS/500 mL 1,500 ML ONE (11:58)
[2018-05-12] MEDS ORDERED: EPHEDrine 50 MG/ML VIAL ONE (12:36)
[2018-05-12] MEDS ORDERED: *HR* PHENYLEPHRINE 1,000 MCG/10 ML SYRINGE IVP ONE ×2 (13:01→13:37)
[2018-05-12] MEDS ORDERED: *HR* OxyCODONE Immed Rel 5 MG TABLET PO PRN ×2 (13:26→15:35)
[2018-05-12] MEDS ORDERED: Ipratropium Neb 0.5 MG NEBULIZER IH PRN (13:26)
[2018-05-12] MEDS ORDERED: Ondansetron 4 MG/2 ML VIAL IVP ONE (13:26)
--- NOTE | 2018-05-12 14:19 | Operative Note ---
Date of procedure: 05/12/18 Pre-op diagnosis: Peripheral vascular disease with rest pain Post-op diagnosis: same Procedure: 1. Thrombectomy of the left limb of an aortobifemoral bypass graft with 5 and 6 -[place] Megan embolectomy catheters. 2. Left common and deep femoral endarterectomy. Complications: None Anesthesia: GETA, local Surgeon: Alverto Howard Was there an education assistant present: No Estimated blood loss (cc): 100 Specimen: Left lower extremity thrombus and plaque Condition: stable Disposition: PACU Procedure in Detail: Indications: The patient is a 67-year-old male with a history of hypertension, hyperlipidemia, tobacco abuse, COPD and peripheral vascular disease. The patient undergone multiple procedures in the past including aortobifemoral bypass graft. He presented to the emergency room with occlusion of the left limb of his graft and severe disabling claudication. Revascularization was recommended to alleviate his symptoms. Procedure: The patient was identified in the prep and very. The risks, benefits and alternatives of the procedure were discussed and all questions were answered. The patient was then brought to the operating room and placed in supine position on the operating table. After induction of general endotracheal anesthesia he was cleaned and draped in normal sterile fashion. His previous left groin scar was opened sharply. Hemostasis was obtained with electrocautery. Through a process of blunt, sharp and electrocautery dissection the left common deep and superficial femoral vessels as well as the graft limb were identified. There were dissected circumferentially and surrounded with vessel loops. The patient received 5000 unit of heparin intravenously. After waiting adequate time for the heparin to circulate, the vessels and graft were occluded and a longitudinal graftotomy was made. A 5 Megan embolus to be catheter was passed proximally. Multiple passes revealed significant thrombus in the and pulsatile flow was noted. Passes revealed no additional thrombus. Heparinized saline was infused into the lumen. Significant atherosclerotic plaque and intimal hyperplasia were noted to be present within the common femoral and deep femoral arteries. Using a dental freer and endarterectomy was performed the common femoral and deep femoral artery. Retrograde flow was noted upon completion of the endarterectomy. The lumen was flushed with heparinized saline. The graftotomy was then reapproximated with a running 6-0 Prolene. Prior to completing the closure the vessels were then flushed and heparinized it was infused to the lumen. Upon completion of the closure of the graftotomy flow was restored strong pulse was noted within femoral arteries and polyphasic signals were noted by Doppler. The wound was irrigated with the body-containing saline. Thrombin and Gelfoam were used to aid in hemostasis. Meticulous hemostasis was obtained further with electrocautery. Platelet rich and platelet poor plasma were infused into the wound. The wound was reapproximated with layers of 201 3-0 Vicryl. The skin was reapproximated with 3-0 Monocryl. A sterile dressing was applied and the patient was extended taken recovery room in stable condition assessment
[2018-05-12] MEDS: *HR* FentaNYL (PF) 100 MCG/2 ML VIAL IVP PRN ×4 (14:30→15:12)
[2018-05-12] MEDS ORDERED: *HR* Labetalol 20 MG/4 ML SYRINGE IVP PRN (15:35)
[2018-05-12] MEDS ORDERED: *HR* Heparin 5,000 UNIT/ML VIAL IVP PRN ×2 (15:35)
[2018-05-12] MEDS ORDERED: Naloxone 0.4 MG/ML INJ IVP PRN ×2 (15:35)
[2018-05-12] MEDS ORDERED: OXYCODONE Oral CONC 10 MG/0.5 ML ORAL.SYG SL PRN ×2 (15:35)
[2018-05-12] MEDS ORDERED: Ipratropium/Albuterol Neb 3 ML IH PRN (16:00)
[2018-05-12] MEDS: PECTIN CITRUS PO SCH ×2 (16:30→20:00)
[2018-05-12] MEDS: ACIDOPHILUS PO SCH ×2 (16:30→20:00)
[2018-05-12] MEDS: Heparin 25,000 UNIT/500 ML D5W 25,000 UNIT/500 ML BAG IVC SCH (16:33)
[2018-05-12 16:37] LABS: Basophils % 0.2 %; Eosinophils % 0.2 %; Hematocrit 34.8 % (37.5-50.1); Hemoglobin 11.4 g/dL (12.9-16.9); Immature Granulocytes % 0.5 % (0-4); Lymphocytes # 0.8 K/mcL (0.6-4.6); Lymphocytes % 4.7 %; Mean Corpuscular HGB Conc 32.8 g/dL (31.6-35.5); Mean Corpuscular Hemoglobin 30.3 pg (28.0-33.3); Mean Corpuscular Volume 92.6 fL (83.0-100.0); Monocytes # 0.3 K/mcL (0.0-1.3); Monocytes % 1.6 %; Neutrophils # 15.3 K/mcL (1.6-8.9); Platelet Count 183 K/mcL (140-400); Red Blood Count 3.76 M/mcL (4.19-5.50); Red Cell Distribution Width 14.2 % (11.5-14.5); Segmented Neutrophils % 92.8 %
[2018-05-12] MEDS: *HR* Metoprolol 5 MG/5 ML VIAL IVP SCH (18:12)
[2018-05-12] MEDS: Famotidine 20 MG TABLET PO SCH (19:59)
[2018-05-12] MEDS ORDERED: traZODone 50 MG TABLET PO SCH (21:00)
[2018-05-12] MEDS ORDERED: Melatonin 3 MG TABLET PO SCH (21:00)
[2018-05-12] MEDS ORDERED: Vancomycin 0 MG in D5% in Water 250 ML IVPB ONE (23:30)
[2018-05-13] MEDS: *HR* Metoprolol 5 MG/5 ML VIAL IVP SCH ×2 (00:40→05:49)
[2018-05-13] MEDS: *HR* HYDROcodone/Acet 5/325 mg TABLET PO PRN (04:06)
[2018-05-13 06:51] LABS: Basophils % 0.1 %; Hematocrit 30.6 % (37.5-50.1); Immature Granulocytes % 0.3 % (0-4); Lymphocytes # 1.1 K/mcL (0.6-4.6); Lymphocytes % 7.9 %; Mean Corpuscular HGB Conc 32.7 g/dL (31.6-35.5); Mean Corpuscular Hemoglobin 30.1 pg (28.0-33.3); Mean Corpuscular Volume 92.2 fL (83.0-100.0); Mean Platelet Volume 12.1 fL (9.4-12.4); Monocytes % 6.7 %; Neutrophils # 12.3 K/mcL (1.6-8.9); Platelet Count 160 K/mcL (140-400); Red Blood Count 3.32 M/mcL (4.19-5.50)
[2018-05-13] MEDS: Heparin 25,000 UNIT/500 ML D5W 25,000 UNIT/500 ML BAG IVC SCH (06:59)
[2018-05-13 07:13] LABS: BUN/Creatinine Ratio 11 (6-26); Blood Urea Nitrogen 14 mg/dL (8-23); Calcium 9.1 mg/dL (8.6-10.3); Carbon Dioxide 21 mEq/L (23-29); Chloride 107 mEq/L (98-107); Glucose 138 mg/dL (70-105); Osmolality,Calculated 283 (280-300); Potassium 4.2 mEq/L (3.5-5.1); Sodium 135 mEq/L (136-145); eGFR For African Americans > 60 (> 60); eGFR For Non-African Americans 59 (> 60)
[2018-05-13 07:25] VITALS: BP 116/64
--- NOTE | 2018-05-13 07:37 | Discharge Summary ---
Orders not resulted at time of discharge: Pending orders 05/12/18 13:56 Surgical Pathology [PTH] Routine Date of Encounter: 05/13/18 Time of Encounter: 07:40 - Discharge Diagnosis (1) Atherosclerosis of nonbiologic bypass graft of left leg with rest pain Priority: Primary Status: Acute Comments: The patient is postoperative day # 1 after an aorta to left femoral artery graft thrombectomy. His symptoms have resolved. His wounds are healing and he has pedal signals bilaterally. He will be discharged today. (2) Chronic disease anemia Priority: Secondary Status: Chronic Comments: He is hemodynamically stable without evidence of ongoing blood loss. (3) COPD (chronic obstructive pulmonary disease) Priority: Secondary Status: Chronic Qualifiers: COPD type: emphysema Emphysema type: panlobular Qualified Code(s): J43.1 - Panlobular emphysema (4) HLD (hyperlipidemia) Priority: Secondary Status: Chronic Qualifiers: Hyperlipidemia type: mixed hyperlipidemia Qualified Code(s): E78.2 - Mixed hyperlipidemia (5) HTN (hypertension) Priority: Secondary Status: Chronic Qualifiers: Hypertension type: essential hypertension Qualified Code(s): I10 - Essential (primary) hypertension (6) Nicotine dependence Priority: Secondary Status: Chronic Qualifiers: Nicotine product type: cigarettes Substance use status: unspecified nicotine-induced disorder Qualified Code(s): F17.219 - Nicotine dependence, cigarettes, with unspecified nicotine-induced disorders - Hospital Course Hospital course: Mr. Luna is a 67 year old male with a history of peripheral vascular disease. The patient was admitted with an occluded left limb of his aortobifemoral bypass graft. He underwent an aorta to left femoral artery bypass graft thrombectomy. He tolerated the procedure well and was discharged on postopertive day #1 without complications. Time spent discussing smoking cessation with patient: 3 to 10 minutes - Time Spent with Patient Total time spent providing and/or coordinating discharge services: - Discharge Medications Prescriptions: OxyCODONE/APAP 5/325 [Percocet 5/325 MG] 1 each PO Q6HR PRN 5 Days #20 tablet PRN Reason: Postoperative pain Aspirin Enteric Coated [Aspirin EC] 81 mg PO DAILY 4 Days #90 tablet. Clopidogrel [Plavix] 75 mg PO DAILY #30 tablet Home Medications: Albuterol Sulfate [Albuterol Inhaler] 2 puff IH Q6H PRN 02/10/17 [History] L. Acidophilus/Pectin, [place] [Acidophilus Probiotic Capsule] 1 cap PO TID 02/10 [History] Calcium Carbonate/Vitamin D3 [Calcium 1,000 + D3 Caplet] 2 tab PO BID 02/20/17 [ History] Cholecalciferol (D-3) [Vitamin D] 1,000 unit PO DAILY 02/20/17 [History] Amlodipine Besylate 10 mg PO DAILY 05/11/18 [History] Atorvastatin [Lipitor] 40 mg PO HS 05/11/18 [History] Docusate Sodium [Dok] 100 mg PO BID 05/11/18 [History] Ipratropium/Albuterol Neb [Duoneb] 3 ml IH Q4HR PRN 05/11/18 [History] Lactobacillus Acidophilus [Probiotic Acidophilus] 1 tab PO BID 05/11/18 [History ] Losartan Potassium [Cozaar] 50 mg PO DAILY 05/11/18 [History] Melatonin [Melatin] 12 mg PO HS 05/11/18 [History] Methocarbamol [Robaxin-750] 750 mg PO TID PRN 05/11/18 [History] Naproxen [Naprosyn] 500 mg PO BID 05/11/18 [History] Ranitidine HCl [Acid Tear Down Man] 150 mg PO BID 05/11/18 [History] Trazodone HCl 100 mg PO HS 05/11/18 [History] Aspirin Enteric Coated [Aspirin EC] 81 mg PO DAILY 4 Days #90 tablet. [Rx] Clopidogrel [Plavix] 75 mg PO DAILY #30 tablet 05/13/18 [Rx] OxyCODONE/APAP 5/325 [Percocet 5/325 MG] 1 each PO Q6HR PRN 5 Days #20 tablet [Rx] Allergies/Adverse Reactions: 3 Allergy/AdvReac Type Severity Reaction Status Date / Time gabapentin Allergy See Verified 05/12/18 17:56 Comments hydrochlorothiazide Allergy See Verified 05/12/18 17:56 Comments hydroxyzine [From Vistaril] Allergy See Verified 05/12/18 17:56 Comments Date of admission: 05/11/18 19:45 [facility]: [facility] Procedure(s) Performed: Aorta to left femoral artery bypass graft thrombectomy. Discharging clinician: Alverto Howard Anticipated date of discharge: 05/13/18 Exam Vital Signs, Last 4 Hours Temp Pulse Resp BP Pulse Ox 05/13/18 07:24 99.4 F 87 16 116/64 98 05/13/18 04:35 98.5 F 80 18 109/58 96 General: Present: Conversant, No Apparent Distress HEENT: Present: Pupils equal Cardiac: Present: Reg Rate and Rhythm Lungs: Present: Normal Breath Sounds Neuro: Present: Alert and responsive, No focal deficits noted Abdomen: Present: Soft, Non-tender Vascular: Present: Normal capillary refill, Surgical incisions (clean, dry and intact without erythema or drainage), Other (compartments soft). Absent: Pulse , normal (pedal signals present bilaterally), Cyanosis, Edema Skin: Present: No rashes noted on visualized skin - Patient Status Disposition: Home, Self-Care Condition: Fair Functional capacity at discharge: independent ambulation Overall status at discharge: patient is back to baseline - Discharge Instructions Instructions: Peripheral Vascular Disorders (DC) Follow Up With: Alverto Howard MD [Partnered Physician] - 06/28/18 2:50 pm [facility],PCP [Primary Care Provider] - 05/20/18 1:45 pm Additional Instructions: May remove bandages and shower on 05/14/2018. Wash wounds gently and pat to dry. Apply dry gauze to wounds daily for 7 days. No tub baths or swimming until 06/05/2018. Call Dr. Howard [phone] with questions or concerns. - Diet and Activity Activity: increase activity as tolerated Diet: low fat, low cholesterol - VTE Documentation of Mechanical Device: Intermittent pneumatic compression device
[2018-05-13] MEDS ORDERED: Aspirin Enteric Coated 81 MG Tablet PO SCH (08:00)
[2018-05-13] MEDS: Famotidine 20 MG TABLET PO SCH (08:20)
[2018-05-13] MEDS: ACIDOPHILUS PO SCH (08:20)
[2018-05-13] MEDS: PECTIN CITRUS PO SCH (08:20)
[2018-05-13] MEDS ORDERED: Cholecalciferol (D-3) 1,000 UNIT TABLET PO SCH (09:00)
[2018-05-13] MEDS ORDERED: Nicotine 21 MG PATCH.TD24 TD SCH (09:00)
[2018-05-13] MEDS ORDERED: amLODIPine 5 MG TABLET PO SCH (09:00)
== END 2018-05-13 10:52 | disposition home or self-care (01) | DRG 253 ==
LOC: 2NNU 16:46 → EMEROO 16:46 → 2NNU 20:55
PROVIDERS: ADMIT Surgery; ATTEND Surgery

== ENCOUNTER 2018-05-18 14:57 | Inpatient (IN) ==
[~2018-05-18 14:57] MED LIST: Vancomycin 1,000 MG, Sodium Chloride IRRigation 1,000 ML IR ONE
[2018-05-18] MEDS ORDERED: CeFAZolin Syr 2,000MG/20 ML 2,000 MG/20 ML SYRINGE IVPB ONE (15:26)
[2018-05-18] MEDS ORDERED: Ringers Solution, Lactated 1,000 ML IVC SCH (15:30)
--- NOTE | 2018-05-18 15:31 | History & Physical Report ---
Date of Encounter: 05/18/18 Time of Encounter: 15:25 24 Hour HP Update - Instructions Instructions: If the History and Physical is less than 30 days old and was completed prior to A.M. admission and or procedure and has NOT been updated on calendar day of procedure please complete this update prior to performing procedure. - Update Patient reports changes in Medical Condition: No Changes in examination, assessment, or condition: No Changes in Medication: No Preop tests/diagnostics Reviewed: Yes Surgery Remains Indicated: Yes Consent for Planned Operative Procedure(s) Verified: Yes - Pre-Operative Checklist Preoperative Checklist Indicated: Yes Prophylactic Antibiotic Ordered: Yes (Vancomycin due to MRSA risk) Home Medications Include Beta Cam: No Beta Cam Taken Today (Day of Surgery): No Beta Cam Taken Yesterday (Day Prior to Surgery): No Is VTE Prophylaxis Indicated?: Yes
--- NOTE | 2018-05-18 15:40 | Anesthesia Evaluation PreOp ---
Date of Encounter: 05/18/18 Time of Encounter: 15:38 - Past History Planned Operation: Fem to fem bypass Cardiac History: HTN, Hyperlipidemia, Other (PVD) Pulmonary History: Smoker, COPD CLAIM INSPECTOR History: Other (PTSD, anxiety) Other Medical History: Renal (ckd) Anesthesia History: No Prior Anesthetic Complications Alcohol Use: none Drug use: none Medications and Allergies Albuterol Sulfate [Albuterol Inhaler] 2 puff IH Q6H PRN 02/10/17 [History] L. Acidophilus/Pectin, [place] [Acidophilus Probiotic Capsule] 1 cap PO TID 02/10 [History] Calcium Carbonate/Vitamin D3 [Calcium 1,000 + D3 Caplet] 2 tab PO BID 02/20/17 [ History] Cholecalciferol (D-3) [Vitamin D] 1,000 unit PO DAILY 02/20/17 [History] Amlodipine Besylate 10 mg PO DAILY 05/11/18 [History] Atorvastatin [Lipitor] 40 mg PO HS 05/11/18 [History] Docusate Sodium [Dok] 100 mg PO BID 05/11/18 [History] Ipratropium/Albuterol Neb [Duoneb] 3 ml IH Q4HR PRN 05/11/18 [History] Lactobacillus Acidophilus [Probiotic Acidophilus] 1 tab PO BID 05/11/18 [History ] Losartan Potassium [Cozaar] 50 mg PO DAILY 05/11/18 [History] Melatonin [Melatin] 12 mg PO HS 05/11/18 [History] Methocarbamol [Robaxin-750] 750 mg PO TID PRN 05/11/18 [History] Naproxen [Naprosyn] 500 mg PO BID 05/11/18 [History] Ranitidine HCl [Acid License Inspector] 150 mg PO BID 05/11/18 [History] Trazodone HCl 100 mg PO HS 05/11/18 [History] Aspirin Enteric Coated [Aspirin EC] 81 mg PO DAILY 4 Days #90 tablet. [Rx] Clopidogrel [Plavix] 75 mg PO DAILY #30 tablet 05/13/18 [Rx] OxyCODONE/APAP 5/325 [Percocet 5/325 MG] 1 each PO Q6HR PRN 5 Days #20 tablet [Rx] 3 Allergy/AdvReac Type Severity Reaction Status Date / Time gabapentin Allergy See Verified 05/12/18 17:56 Comments hydrochlorothiazide Allergy See Verified 05/12/18 17:56 Comments hydroxyzine [From Vistaril] Allergy See Verified 05/12/18 17:56 Comments - Meds/Allergy Pre-op Review Medications Reviewed: Yes Allergies Reviewed: Yes Beta Blockers on Current Med List: No Anesthesia Results - Labs Laboratory Tests 05/11/18 05/11/18 05/13/18 17:07 21:21 06:41 WBC Hgb Hct Plt Count PT 11.5 INR 1.1 APTT 36.0 Sodium Potassium Chloride Carbon Dioxide BUN Creatinine Est GFR ( Amer) Est GFR (Non-Af Amer) BUN/Creatinine Ratio Glucose POC Glucose 159 H Calculated Osmolality Calcium 05/15/18 05/15/18 16:58 16:58 WBC 9.9 Hgb 11.3 L Hct 34.4 L Plt Count 176 PT INR APTT Sodium 139 Potassium 3.7 Chloride 105 Carbon Dioxide 28 BUN 14 Creatinine 1.09 Est GFR ( Amer) > 60 Est GFR (Non-Af Amer) > 60 BUN/Creatinine Ratio 13 Glucose 96 POC Glucose Calculated Osmolality 288 Calcium 9.5 - Imaging EKG: report reviewed, image reviewed (SR) Additional studies: TTE: Impressions: LVEF 60%. Normal left ventricular size and systolic function. There is evidence of mild diastolic dysfunction of the left ventricle. Normal right ventricular size and function. No significant valvular dysfunction. No pulmonary hypertension. Anesthesia Exam Weight: 65 kg NPO (# of Hours): > 8 hrs - HEENT Pupil (Motor): Pupils equal, EOMI Mallampati: II Teeth: Edentulous Denture Type: Upper: Complete, Lower: Complete Oral Opening: Greater than 3 - CLAIM INSPECTOR LOC: Oriented - Cardiac Rhythm: Regular Murmur: None - Pulmonary Breath Sounds: bilateral Clear Respiratory Effort: Symmetrical Anesthesia Assess/Plan ASA Score: 3 Modified [place] Scale for Level of Consciousness: Cooperative, oriented, and tranquil Anesthetic Plan: General Monitoring Plan: Standard Monitors, A-Line Recovery Plan: PACU
[2018-05-18] MEDS ORDERED: Heparin 1,000 UNITS/500 mL 500 ML ONE (15:58)
[2018-05-18] MEDS ORDERED: Heparin 1,000 UNITS/500 mL 1,000 ML ONE (17:38)
[2018-05-18] MEDS ORDERED: *HR* Heparin 5,000 UNIT/ML VIAL SQ SCH (18:00)
[2018-05-18] MEDS ORDERED: *HR* FentaNYL (PF) 100 MCG/2 ML VIAL ONE (18:07)
[2018-05-18] MEDS ORDERED: Lidocaine -MPF 2% 2 ML VIAL ONE (18:08)
[2018-05-18] MEDS ORDERED: *HR* Propofol 200 MG/20 ML VIAL IVP ONE (18:08)
[2018-05-18] MEDS ORDERED: Lidocaine -MPF 4% 5 ML AMPUL ONE (18:08)
[2018-05-18] MEDS ORDERED: *HR* Succinylcholine 200 MG/10 ML VIAL IVP ONE (18:08)
[2018-05-18] MEDS ORDERED: *HR* Rocuronium Bromide 50 MG/5 ML VIAL ONE (18:08)
[2018-05-18] MEDS ORDERED: *HR* PHENYLEPHRINE 1,000 MCG/10 ML SYRINGE IVP ONE ×2 (18:41→18:49)
[2018-05-18] MEDS ORDERED: EPHEDrine 50 MG/ML VIAL ONE (18:49)
[2018-05-18] MEDS ORDERED: *HR* Phenylephrine 10 MG/ML VIAL ONE (18:50)
[2018-05-18] MEDS ORDERED: *HR* Vasopressin 20 UNIT/ML VIAL ONE (19:06)
[2018-05-18] MEDS ORDERED: Ondansetron 4 MG/2 ML VIAL ONE (20:22)
[2018-05-18] MEDS ORDERED: *HR* Heparin 5,000 UNIT/ML VIAL ONE (20:22)
[2018-05-18] MEDS ORDERED: Dexamethasone 4 MG/ML VIAL ONE (20:22)
[2018-05-18] MEDS ORDERED: *HR* Morphine 10 MG/ML VIAL ONE (20:30)
[2018-05-18] MEDS ORDERED: Protamine Sulfate 50 MG/5 ML VIAL IVP ONE (20:48)
--- NOTE | 2018-05-18 21:52 | Operative Note ---
Date of procedure: 05/18/18 Pre-op diagnosis: Peripheral vascular disease with disabling claudication Post-op diagnosis: same Procedure: 1. Right common femoral artery to left common femoral artery bypass graft with 6 mm PTFE graft. 2. Left lower extremity thrombectomy with 4-Ch[place] Megan embolus to be catheter. Complications: None Anesthesia: EVONA Surgeon: Alverto Howard Was there an housekeeper/laundry assistant present: No Estimated blood loss (cc): 200 Specimen: Left lower extremity thrombus and plaque Condition: stable Disposition: PACU Procedure in Detail: The patient is a 67-year-old male with a long-standing history of peripheral vascular disease, hypertension, tobacco abuse, COPD and hyperlipidemia. Patient previously underwent an aortobifemoral bypass graft. He presented with an acute occlusion of the left limb of his graft. He previously underwent revascularization of that the thrombectomy. He now presents with a reocclusion of his graft. Revascularization has been recommended to alleviate his symptoms and reduce his risk of limb loss. Procedure: The patient was identified in the preoperative area. The risks, benefits and alternatives were discussed with him and all questions were answered. He was then taken to the operating room and placed in the supine position on the operating table. After the induction of general endotracheal anesthesia he was cleaned and draped in normal sterile fashion. His bilateral inguinal incisions were then opened sharply. Hemostasis was obtained with electrocautery. Through a process of blunt, sharp and electrocautery dissection the bilateral common deep and superficial femoral arteries were dissected circumferentially and surrounded with vessel loops. In addition the bilateral limbs of the aortobifemoral bypass graft were dissected circumferentially and surrounded with the vessel loops. A 6 mm PTFE graft was then tunneled between the left and right femoral vessels. The patient received 5000 units of intravenous heparin. After waiting adequate time for the heparin to circulate the femoral vessels were occluded on the right. A graftotomy was made in the 100 of the aortobifemoral bypass graft on the right. Inspection of the interior of the artery revealed no significant stenosis or plaque. The graft was then cut to fit the defect and sutured in place with a running 6-0 Prolene. The right femoral vessels were flushed and the graft. The graft was then clamped with an atraumatic clamp. Tension was applied to the Vesseloops on the left. A graftotomy was then performed to the of the distal anastomosis of the aortobifemoral bypass on the left. Significant well organized thrombus was noted to be present. A portion of the thrombus was removed under direct visualization. No flow was noted from the left superficial femoral artery upon release of the vessel loop. A a 5-Ch[place] followed by a 6-Chadian Megan embolus to be catheter was then passed down the superficial femoral artery. Multiple passes were required to remove thrombus present in the left lower extremity. After completion of the thrombectomy retrograde flow was noted. Heparinized saline was flushed into the superficial femoral artery and the vessel loop was then reoccluded. The distal end of the femoral to femoral bypass graft was cut to fit the arterial defect. It was then sutured in place with a running 6-0 Prolene. Prior to completing the anastomosis the femoral vessels were flushed and the graft was also flushed. Heparinized saline was infused into the lumen. The anastomosis was completed and flow was restored. Polyphasic signals were noted distal to the distal anastomosis of the femorofemoral bypass graft. Meticulous hemostasis was obtained throughout the wounds with electrocautery. The wounds were irrigated with antibiotic containing saline. Platelet rich and platelet poor plasma were infused into the wounds. The wounds were then reapproximated with layers of 20 and 3-0 Vicryl. 4-0 Monocryl was used to reapproximate the skin. Sterile dressings were applied and the patient was then taken to the recovery room in stable condition after being extubated.
--- NOTE | 2018-05-18 22:19 | Anesthesia Evaluation Post Op ---
Date of Encounter: 05/18/18 Time of Encounter: 22:18 Notes: Patient's vital signs have been reviewed. Patient is stable postoperatively and has adequately recovered from anesthesia. Patient is determined to have stable airway patency and respiratory function including respiratory rate and oxygen saturation. Patient has a stable heart rate, blood pressure and adequate hydration. Patients mental status is acceptable. Patients temperature is appropriate. Pain and nausea are adequately controlled. - Discharge PostOp Status: Transfer Patient to floor
[2018-05-18] MEDS ORDERED: Naloxone 0.4 MG/ML INJ IVP PRN (22:44)
[2018-05-18] MEDS ORDERED: Ondansetron 4 MG/2 ML VIAL IVP PRN (22:44)
[2018-05-18] MEDS ORDERED: *HR* Labetalol 20 MG/4 ML SYRINGE IVP PRN (22:44)
[2018-05-18] MEDS ORDERED: Methocarbamol 750 MG TABLET PO PRN (22:44)
[2018-05-18] MEDS ORDERED: OXYCODONE Oral CONC 10 MG/0.5 ML ORAL.SYG SL PRN ×2 (22:44)
[2018-05-18] MEDS ORDERED: Acetaminophen 325 MG TABLET PO PRN (22:44)
[2018-05-18] MEDS ORDERED: Ipratropium/Albuterol Neb 3 ML IH PRN (22:44)
[2018-05-19] MEDS: *HR* Metoprolol 5 MG/5 ML VIAL IVP SCH ×5 (00:01→23:38)
[2018-05-19] MEDS: Ketorolac 15 MG/ML VIAL IVP SCH ×2 (00:03→05:49)
[2018-05-19] MEDS ORDERED: Vancomycin 1,000 MG in D5% in Water 250 ML IVPB ONE (04:00)
[2018-05-19 04:02] LABS: Basophils % 0.1 %; Eosinophils % 0.1 %; Hematocrit 28.3 % (37.5-50.1); Immature Granulocytes % 0.6 % (0-4); Lymphocytes # 0.6 K/mcL (0.6-4.6); Lymphocytes % 2.8 %; Mean Corpuscular HGB Conc 32.5 g/dL (31.6-35.5); Mean Corpuscular Hemoglobin 30.5 pg (28.0-33.3); Mean Corpuscular Volume 93.7 fL (83.0-100.0); Mean Platelet Volume 12.2 fL (9.4-12.4); Monocytes # 0.7 K/mcL (0.0-1.3); Monocytes % 3.3 %; Platelet Count 183 K/mcL (140-400); Red Blood Count 3.02 M/mcL (4.19-5.50); Red Cell Distribution Width 14.2 % (11.5-14.5); Segmented Neutrophils % 93.1 %
[2018-05-19 04:04] LABS: Hemoglobin 9.2 g/dL (12.9-16.9); Neutrophils # 19.9 K/mcL (1.6-8.9)
[2018-05-19 04:21] LABS: Calcium 9.2 mg/dL (8.6-10.3); Potassium 4.6 mEq/L (3.5-5.1)
[2018-05-19] MEDS: *HR* Heparin 5,000 UNIT/ML VIAL SQ SCH ×2 (05:49→17:01)
[2018-05-19] MEDS ORDERED: 0.9 % Sodium Chloride 1,000 ML IVC ONE (07:04)
[2018-05-19] MEDS ORDERED: 0.9 % Sodium Chloride 1,000 ML IVC SCH (07:15)
[2018-05-19] MEDS ORDERED: Famotidine 20 MG TABLET PO SCH (07:30)
[2018-05-19] MEDS: Cholecalciferol (D-3) 1,000 UNIT TABLET PO SCH (08:05)
[2018-05-19] MEDS: Aspirin Enteric Coated 81 MG Tablet PO SCH (08:05)
[2018-05-19] MEDS: amLODIPine 5 MG TABLET PO SCH (08:22)
[2018-05-19] MEDS: CALCIUM PO SCH ×2 (08:22→20:12)
[2018-05-19] MEDS: D3 PO SCH ×2 (08:22→20:12)
[2018-05-19] MEDS: *HR* HYDROcodone/Acet 5/325 mg TABLET PO PRN ×2 (10:31→17:01)
[2018-05-19 14:32] LABS: Albumin 3.2 g/dL (3.5-5.7); Calcium 8.7 mg/dL (8.6-10.3); Phosphorous 4.2 mg/dL (2.7-4.5); Potassium 4.4 mEq/L (3.5-5.1)
--- NOTE | 2018-05-19 16:03 | Discharge Summary ---
<JamesAnthonyJan J - Last Filed: 05/21/18 09:47> Orders not resulted at time of discharge: Pending orders 05/18/18 21:30 Surgical Pathology [PTH] Routine 05/20/18 13:15 Red Blood Cells [BBK] Stat Date of Encounter: 05/21/18 Time of Encounter: 09:44 - Discharge Diagnosis (1) Acute kidney injury superimposed on CKD Priority: Secondary Status: Acute Comments: Patient had marked elevation of serum creatinine. With IV hydration and this significantly improved to the point that his creatinine was 1.5 on the day of discharge. (2) Acute blood loss anemia Priority: Secondary Status: Acute Comments: Patient had acute blood loss anemia. His hemoglobin dropped to 6.3. The patient was given 2 units of blood in transfusion postoperatively. (3) PAD (peripheral artery disease) Priority: Primary Status: Chronic Comments: Patient has significant lower extremity occlusive disease. The patient underwent a right to left femoral-femoral bypass graft and left lower extremity thrombectomy during this hospitalization. - Hospital Course Hospital course: Mr. Luna is a 67 year old male Admitted for severe left lower extremity ischemia. The patient went to surgery on 05/18/2018. He underwent a right to left femoral-femoral bypass graft. He also had a catheter thrombectomy of the left lower extremity. Postoperatively the patient was found to have acute blood loss anemia which was corrected with 2 units of packed red blood cells. Patient also was noted to have acute kidney injury which was corrected with IV hydration. The patient was felt fit for discharge on postoperative day #3. Postoperative care was reviewed with the patient. All questions were answered. - Time Spent with Patient Total time spent providing and/or coordinating discharge services: - Discharge Medications Prescriptions: OxyCODONE/APAP 5/325 [Percocet 5/325 MG] 1 each PO Q6HR PRN 7 Days #25 tablet PRN Reason: Postoperative pain Home Medications: Albuterol Sulfate [Albuterol Inhaler] 2 puff IH Q6H PRN 02/10/17 [History] Calcium Carbonate/Vitamin D3 [Calcium 1,000 + D3 Caplet] 2 tab PO BID 02/20/17 [ History] Amlodipine Besylate 10 mg PO DAILY 05/11/18 [History] Atorvastatin [Lipitor] 40 mg PO HS 05/11/18 [History] Docusate Sodium [Dok] 100 mg PO BID 05/11/18 [History] Ipratropium/Albuterol Neb [Duoneb] 3 ml IH Q4HR PRN 05/11/18 [History] Lactobacillus Acidophilus [Probiotic Acidophilus] 1 tab PO BID 05/11/18 [History ] Losartan Potassium [Cozaar] 50 mg PO DAILY 05/11/18 [History] Methocarbamol [Robaxin-750] 750 mg PO TID PRN 05/11/18 [History] Ranitidine HCl [Acid Mortgage Counselor] 150 mg PO BID 05/11/18 [History] Trazodone HCl 100 mg PO HS 05/11/18 [History] Aspirin Enteric Coated [Aspirin EC] 81 mg PO DAILY 4 Days #90 tablet. [Rx] Clopidogrel [Plavix] 75 mg PO DAILY #30 tablet 05/13/18 [Rx] Lidocaine 4% CRM (LMX) [Lmx 4] 1 appl TP QID PRN 05/19/18 [History] OxyCODONE/APAP 5/325 [Percocet 5/325 MG] 1 each PO Q6HR PRN 7 Days #25 tablet [Rx] Allergies/Adverse Reactions: 3 Allergy/AdvReac Type Severity Reaction Status Date / Time gabapentin Allergy See Verified 05/22/18 17:50 Comments hydrochlorothiazide Allergy See Verified 05/22/18 17:50 Comments hydroxyzine [From Vistaril] Allergy See Verified 05/22/18 17:50 Comments Date of admission: 05/18/18 22:25 [facility] care physician: [facility] Consults: none Procedure(s) Performed: Right to left femoral-femoral bypass graft and left lower extremity catheter thrombectomy on 05 18 2018 Anticipated date of discharge: 05/21/18 Exam Vital Signs, Last 4 Hours Temp Pulse Resp BP 05/21/18 08:12 69 05/21/18 07:03 97.9 F 70 16 127/64 General: Present: Conversant Neck: Absent: JVD Neuro: Present: Alert and responsive, No focal deficits noted Abdomen: Present: Soft, Non-tender Vascular: Present: Color/Temperature (Left foot is warm and pink right foot is warm and pink), Surgical incisions (Bilateral femoral incisions are clean and dry), Other (Patient has Doppler signals 2 at each ankle.) Skin: Present: No rashes noted on visualized skin - Patient Status Disposition: Home, Self-Care Condition: Good Functional capacity at discharge: independent ambulation Overall status at discharge: patient is progressing back to baseline - Discharge Instructions Instructions: Oxycodone/Acetaminophen (By mouth), Femoropopliteal Bypass (DC), Cigarette Smoking and Your Health, Sr. Social Media & Mobile Manager (GEN) Follow Up With: Alverto Howard MD [Partnered Physician] - 06/29/18 1:00 pm [facility],PCP [Primary Care Provider] - 05/30/18 9:45 am Additional Instructions: INCREASE DIET AND ACTIVITY TOLERATED. - Diet and Activity Activity: increase activity as tolerated Diet: advance to your usual diet <Alverto Howard - Last Filed: 05/25/18 13:38> Orders not resulted at time of discharge: Pending orders 05/18/18 21:30 Surgical Pathology [PTH] Routine Surgical Pathology [PTH] Routine Date of Encounter: 05/21/18 (Patient seen by Dr. Ramirez) - Discharge Diagnosis (1) Atherosclerosis of nonbiologic bypass graft of left leg with rest pain Priority: Primary Status: Chronic Comments: The patient has a history of peripheral vascular disease is present undergone a aortobifemoral bypass. His left graft limb has had recurrent occlusions. He underwent a right to left femoral to femoral artery bypass. He tolerated the procedure well was discharged home in stable condition on postoperative day #3. (2) CAD (coronary artery disease) Priority: Secondary Status: Chronic Qualifiers: Coronary Disease-Associated Artery/Lesion type: [place] artery [place] vs. transplanted heart: [place] heart Associated angina: without angina Qualified Code(s): I25.10 - Atherosclerotic heart disease of [place] coronary artery without angina pectoris (3) CKD (chronic kidney disease), stage III Priority: Secondary Status: Chronic Comments: The patient has chronic kidney disease stage III. He acute worsening of his renal function due to dehydration. He is hydrated intravenously and his creatinine improved. He maintain adequate urine output throughout his hospitalization. (4) COPD (chronic obstructive pulmonary disease) Priority: Secondary Status: Chronic Qualifiers: COPD type: emphysema Emphysema type: panlobular Qualified Code(s): J43.1 - Panlobular emphysema (5) Chronic disease anemia Priority: Secondary Status: Chronic Comments: The patient has chronic disease anemia with acute expected postoperative anemia. He received 2 units of packed red blood cells during his hospitalization. He remained hemodynamically stable. He had no evidence of ongoing blood loss. (6) HLD (hyperlipidemia) Priority: Secondary Status: Chronic Qualifiers: Hyperlipidemia type: mixed hyperlipidemia Qualified Code(s): E78.2 - Mixed hyperlipidemia (7) HTN (hypertension) Priority: Secondary Status: Chronic Qualifiers: Hypertension type: essential hypertension Qualified Code(s): I10 - Essential (primary) hypertension (8) Tobacco abuse Priority: Secondary Status: Chronic - Hospital Course Hospital course: Mr. Luna is a 67 year old male - Time Spent with Patient Total time spent providing and/or coordinating discharge services: Date of admission: 05/18/18 22:25 [facility] care physician: [facility] Discharging clinician: Alverto Howard - VTE Documentation of Mechanical Device: Graduated compression elastic hosiery
[2018-05-19] MEDS: Famotidine 20 MG TABLET PO SCH (16:05)
[2018-05-19] MEDS: 0.9 % Sodium Chloride 1,000 ML IVC SCH ×2 (17:01→22:00)
[2018-05-19] MEDS: Melatonin 3 MG TABLET PO SCH (20:12)
[2018-05-19] MEDS: traZODone 50 MG TABLET PO SCH (20:12)
[2018-05-19] MEDS: *HR* OxyCODONE Immed Rel 5 MG TABLET PO PRN (22:31)
[2018-05-20 03:50] LABS: Basophils % 0.1 %; Eosinophils % 0.1 %; Hematocrit 18.8 % (37.5-50.1); Immature Granulocytes % 0.8 % (0-4); Lymphocytes # 1.8 K/mcL (0.6-4.6); Lymphocytes % 8.7 %; Mean Corpuscular HGB Conc 33.5 g/dL (31.6-35.5); Mean Corpuscular Hemoglobin 30.7 pg (28.0-33.3); Mean Corpuscular Volume 91.7 fL (83.0-100.0); Mean Platelet Volume 12.3 fL (9.4-12.4); Monocytes # 1.3 K/mcL (0.0-1.3); Monocytes % 6.5 %; Platelet Count 146 K/mcL (140-400); Red Blood Count 2.05 M/mcL (4.19-5.50); Red Cell Distribution Width 14.6 % (11.5-14.5); Segmented Neutrophils % 83.8 %
[2018-05-20 03:58] LABS: Hemoglobin 6.3 g/dL (12.9-16.9)
[2018-05-20 04:03] LABS: Albumin 2.8 g/dL (3.5-5.7); Calcium 8.4 mg/dL (8.6-10.3); Phosphorous 3.3 mg/dL (2.7-4.5); Potassium 4.7 mEq/L (3.5-5.1)
[2018-05-20] MEDS: *HR* OxyCODONE Immed Rel 5 MG TABLET PO PRN ×2 (04:09→22:33)
[2018-05-20] MEDS: *HR* Heparin 5,000 UNIT/ML VIAL SQ SCH ×2 (06:12→18:45)
[2018-05-20] MEDS: *HR* Metoprolol 5 MG/5 ML VIAL IVP SCH ×3 (06:12→18:57)
[2018-05-20] MEDS: amLODIPine 5 MG TABLET PO SCH (09:59)
[2018-05-20] MEDS: Aspirin Enteric Coated 81 MG Tablet PO SCH (09:59)
[2018-05-20] MEDS: Famotidine 20 MG TABLET PO SCH ×2 (09:59→18:46)
[2018-05-20] MEDS: Cholecalciferol (D-3) 1,000 UNIT TABLET PO SCH (09:59)
[2018-05-20] MEDS: D3 PO SCH ×2 (10:00→19:52)
[2018-05-20] MEDS: CALCIUM PO SCH ×2 (10:00→19:52)
[2018-05-20] MEDS: *HR* HYDROcodone/Acet 5/325 mg TABLET PO PRN ×2 (10:04→18:46)
[2018-05-20] MEDS ORDERED: 0.9 % Sodium Chloride 250 ML ONE ×2 (14:44→18:39)
[2018-05-20] MEDS ORDERED: Furosemide 20 MG/2 ML VIAL IVP ONE ×2 (16:08→16:41)
--- NOTE | 2018-05-20 17:04 | Vascular/[facility] Progress Note ---
Date of Encounter: 05/20/18 Time of Encounter: 17:02 - Assessment and plan (1) Acute kidney injury superimposed on CKD Current Visit: Yes Status: Acute The patient has improvement of renal function. Serum creatinine is now 1.8 which is down from 2.3 yesterday. Patient poorly is responded well to the intravenous hydration. The IV hydration has been discontinued at this time because of blood transfusions. (2) Acute blood loss anemia Current Visit: Yes Status: Acute Patient has acute blood loss anemia following surgery as well as dilution from hydration therapy for acute renal injury. Hemoglobin was only 6.3 earlier today. The patient will be transfused 2 units of blood. He will receive 20 mg of Lasix IV following the second unit of blood this afternoon. Anticipate patient may be ready for discharge as early as tomorrow morning. All questions were answered. (3) PAD (peripheral artery disease) Current Visit: Yes Status: Chronic Patient has chronic lower extremity vascular disease. He is status post femoral -femoral bypass graft. He is now postoperative day #2. Patient's renal function is improving. Patient has developed significant hemoglobin drop and will receive a total of 2 units of blood today. The bypass graft appears to be functioning well. The left foot is warm and pink. - Subjective Interval history: Patient has no complaints. He is resting comfortably in bed. Vital Signs, Last 4 Hours Temp Pulse Resp BP 05/20/18 15:18 97.5 F L 81 16 111/54 05/20/18 15:03 98.4 F 89 17 106/62 - Physical Examination General: Present: Conversant, No Apparent Distress HEENT: Present: Atraumatic Neck: Absent: JVD Cardiac: Present: Reg Rate and Rhythm, Normal S1 and S2 Lungs: Present: Normal Breath Sounds Vascular: Present: Normal capillary refill, Color/Temperature (Left foot is warmer than right foot.), Surgical incisions (Surgical incisions are clean and dry and covered with dressings.), Other (Patient has Doppler signals 2 at each ankle.) Abdomen: Present: Soft, Non-tender Skin: Present: Other (Skin is pale.) - VTE Documentation of Mechanical Device: Graduated compression elastic hosiery Results 05/20/18 03:22 05/20/18 03:22 Lab Results, Last 24 hours 05/20/18 05/20/18 03:22 03:22 WBC 20.3 H Hgb 6.3 L D Hct 18.8 L Plt Count 146 Sodium 137 Potassium 4.7 Chloride 108 H Carbon Dioxide 23 BUN 27 H Creatinine 1.82 H Glucose 119 H Calcium 8.4 L Consult Discharge Plan - Plan Referrals: Alverto Howard MD [Partnered Physician] - 06/29/18 1:00 pm MA,PCP [Primary Care Provider] - 05/30/18 9:45 am Prescriptions: OxyCODONE/APAP 5/325 [Percocet 5/325 MG] 1 each PO Q6HR PRN 7 Days #25 tablet PRN Reason: Postoperative pain
[2018-05-20] MEDS: Melatonin 3 MG TABLET PO SCH (22:33)
[2018-05-20] MEDS: traZODone 50 MG TABLET PO SCH (22:33)
[2018-05-21] MEDS: *HR* Metoprolol 5 MG/5 ML VIAL IVP SCH ×3 (03:13→10:21)
[2018-05-21 03:59] LABS: Basophils % 0.1 %; Eosinophils # 0.1 K/mcL (0.0-0.6); Hematocrit 28.2 % (37.5-50.1); Hemoglobin 9.7 g/dL (12.9-16.9); Immature Granulocytes % 0.6 % (0-4); Lymphocytes # 2.6 K/mcL (0.6-4.6); Lymphocytes % 18.1 %; Mean Corpuscular HGB Conc 34.4 g/dL (31.6-35.5); Mean Corpuscular Hemoglobin 30.9 pg (28.0-33.3); Mean Corpuscular Volume 89.8 fL (83.0-100.0); Mean Platelet Volume 12.6 fL (9.4-12.4); Monocytes # 1.1 K/mcL (0.0-1.3); Monocytes % 7.9 %; Neutrophils # 10.2 K/mcL (1.6-8.9); Platelet Count 144 K/mcL (140-400); Red Blood Count 3.14 M/mcL (4.19-5.50); Red Cell Distribution Width 15.4 % (11.5-14.5); Segmented Neutrophils % 72.3 %
[2018-05-21 04:25] LABS: Calcium 8.8 mg/dL (8.6-10.3); Potassium 4.3 mEq/L (3.5-5.1)
[2018-05-21] MEDS: *HR* OxyCODONE Immed Rel 5 MG TABLET PO PRN (04:45)
[2018-05-21] MEDS: *HR* Heparin 5,000 UNIT/ML VIAL SQ SCH (06:16)
[2018-05-21 07:04] VITALS: BP 127/64
[2018-05-21] MEDS: Aspirin Enteric Coated 81 MG Tablet PO SCH (07:52)
[2018-05-21] MEDS: amLODIPine 5 MG TABLET PO SCH (07:52)
[2018-05-21] MEDS: Cholecalciferol (D-3) 1,000 UNIT TABLET PO SCH (07:52)
[2018-05-21] MEDS: Famotidine 20 MG TABLET PO SCH (07:52)
[2018-05-21] MEDS: CALCIUM PO SCH (07:53)
[2018-05-21] MEDS: D3 PO SCH (07:53)
[2018-05-21] MEDS: *HR* HYDROcodone/Acet 5/325 mg TABLET PO PRN (08:02)
--- NOTE | 2018-05-21 09:53 | Event Note ---
Date of Encounter: 05/21/18 Time of Encounter: 09:52 Patient is postoperative day #3 following right to left femoral-femoral bypass graft and left lower extremity catheter thrombectomy. He has no complaints overnight. Patient responded appropriately to 2 minutes of blood with hemoglobin now this morning of 9.7. His serum creatinine is also significantly improved and it is now 1.5. The patient's lower extremity is well-perfused. His incisions are clean and dry. He was felt fit for discharge today. Please see discharge summary for further information.
== END 2018-05-21 12:43 | disposition home or self-care (01) | DRG 253 ==
LOC: SAMDAY 14:57 → 2NNU 22:25
PROVIDERS: ADMIT Surgery; ATTEND Surgery
PROC: VASFFBG (ICD-10-PCS; 2018-05-18 17:30)

== ENCOUNTER 2018-09-13 15:08 | Inpatient (IN) ==
[2018-09-13 16:06] LABS: Basophils % 0.4 %; Eosinophils # 0.1 K/mcL (0.0-0.6); Hematocrit 22.6 % (37.5-50.1); Hemoglobin 6.9 g/dL (12.9-16.9); Immature Granulocytes % 0.4 % (0-4); Lymphocytes # 1.4 K/mcL (0.6-4.6); Lymphocytes % 17.3 %; Mean Corpuscular HGB Conc 30.5 g/dL (31.6-35.5); Mean Corpuscular Hemoglobin 26.3 pg (28.0-33.3); Mean Corpuscular Volume 86.3 fL (83.0-100.0); Mean Platelet Volume 12.8 fL (9.4-12.4); Monocytes # 0.6 K/mcL (0.0-1.3); Neutrophils # 5.8 K/mcL (1.6-8.9); Platelet Count 154 K/mcL (140-400); Red Blood Count 2.62 M/mcL (4.19-5.50); Red Cell Distribution Width 15.8 % (11.5-14.5); Segmented Neutrophils % 73.9 %
[2018-09-13 16:14] LABS: Prothrombin Time 11.3 Seconds (9.4-12.1)
[2018-09-13 16:16] LABS: Activated Partial Thrombo Time 32.8 Seconds (26.0-36.0)
--- NOTE | 2018-09-13 16:17 | Emergency Department Note ---
Disposition Clinical Impression: Anemia Qualifiers: Anemia type: unspecified type Qualified Code(s): D64.9 - Anemia, unspecified GI bleed Qualifiers: GI bleed type/associated pathology: unspecified gastrointestinal hemorrhage type Qualified Code(s): K92.2 - Gastrointestinal hemorrhage, unspecified Disposition: Admitted As Inpatient Condition: Fair General Adult HPI - General Chief complaint: ED Syncope Stated complaint: passed out Time Seen by Provider: 09/13/18 15:09 Source: patient, EMS Mode of arrival: EMS Limitations: no limitations Nursing Notes Reviewed: Yes Vital Signs Reviewed: Yes - History of Present Illness HPI Narrative: 68-year-old male with significant past medical history of peripheral artery disease currently taking Plavix and aspirin along with COPD presenting to the emergency department with chief complaint of low hemoglobin. According to the patient today he went to an outpatient ophthalmology appointment. Was feeling tired so he closed his eyes and the next thing he remembers her people in [place] complaining him to share. Patient was seen at the [facility] where basic laboratory analysis showed a hemoglobin of 6.9. Patient was sent here for further evalu ation. Patient does have history of GI bleed that was due to colitis. Denies any changes in his stool or stool color. Denies any melena, hematochezia or hematemesis. Patient denies any symptoms prior to the syncope. Patient states he has had low hemoglobin before but this was after surgery. Pain Scale: 5 - Related Data Home Medications Medication Instructions Recorded Confirmed Albuterol Sulfate [Albuterol 2 puff IH Q6H PRN 02/10/17 09/13/18 Inhaler] Calcium Carbonate/Vitamin D3 2 tab PO BID 02/20/17 09/13/18 [Calcium 1,000 + D3 Caplet] Amlodipine Besylate 10 mg PO DAILY 05/11/18 09/13/18 Atorvastatin [Lipitor] 40 mg PO HS 05/11/18 09/13/18 Docusate Sodium [Dok] 100 mg PO BID 05/11/18 09/13/18 Lactobacillus Acidophilus 1 tab PO BID 05/11/18 09/13/18 [Probiotic Acidophilus] Losartan Potassium [Cozaar] 50 mg PO DAILY 05/11/18 09/13/18 Methocarbamol [Robaxin-750] 750 mg PO TID PRN 05/11/18 09/13/18 Ranitidine HCl [Acid Saw Cleaner] 150 mg PO BID 05/11/18 09/13/18 Lidocaine 4% CRM (LMX) [Lmx 4] 1 appl TP QID PRN 05/19/18 09/13/18 Albuterol Neb [Proventil Neb] 2.5 mg IH Q6H PRN 09/13/18 09/13/18 Budesonide/Formoterol 160/4.5 2 puff IH BIDR 09/13/18 09/13/18 [Symbicort 160/4.5] Pregabalin [Lyrica] 150 mg PO BID 09/13/18 09/13/18 Tiotropium [Spiriva] 18 mcg IH DAILY 09/13/18 09/13/18 Trazodone HCl 150 mg PO HS 09/13/18 09/13/18 Previous Rx's Medication Instructions Recorded Aspirin Enteric Coated [Aspirin EC] 81 mg PO DAILY 4 Days #90 tablet. 05/13/18 Clopidogrel [Plavix] 75 mg PO DAILY #30 tablet 05/13/18 Allergies Allergy/AdvReac Type Severity Reaction Status Date / Time gabapentin Allergy See Verified 05/22/18 17:50 Comments hydrochlorothiazide Allergy See Verified 05/22/18 17:50 Comments hydroxyzine [From Vistaril] Allergy See Verified 05/22/18 17:50 Comments All systems ED: reviewed and negative except as stated. Constitutional: Denies: fever, chills Eyes: Reports: as per HPI ENT ED: Reports: as per HPI Cardiovascular: Denies: chest pain, palpitations, dyspnea on exertion Respiratory: Denies: cough, dyspnea, wheezes Gastrointestinal: Denies: abdominal pain, nausea, vomiting Genitourinary: Reports: as per HPI Musculoskeletal: Reports: as per HPI Integumentary: Reports: as per HPI Neurological: Denies: numbness, paresthesias Psychiatric: Reports: as per HPI Endocrine: Reports: as per HPI Hematological/Lymphatic: Reports: as per HPI Allergic/Immunologic: Reports: as per HPI Past Medical History - Past Medical History Attestation: Yes The following information was validated with the patient. Medical history: Reports: COPD, hyperlipidemia, hypertension, peripheral artery disease, renal disease, other Surgical history: Reports: herniorrhaphy, LE Bypass, LE stent(s), LE vascular intervention, vascular surgery Psychiatric history: Reports: anxiety, depression, PTSD - Social History Smoking Status: Current every day smoker Smokeless Tobacco Status: No Alcohol use: Reports: none Drug use: Reports: none Physical Exam - General Limitations: no limitations General appearance: alert, in no apparent distress - Head Head exam: atraumatic, normocephalic, normal inspection - Eye Eye exam: Present: normal appearance. Absent: scleral icterus, conjunctival injection - ENT ENT exam: mucous membranes dry - Neck Neck exam: Present: normal inspection, full ROM. Absent: tenderness, meningismus - Chest Chest inspection: Present: normal inspection, symmetric chest wall rise. Absent: tenderness, rash - Respiratory Respiratory exam: Present: normal lung sounds bilaterally. Absent: respiratory distress, wheezes - Cardiovascular Cardiovascular exam: Present: regular rate, normal rhythm, normal heart sounds - Abdominal Exam Abdominal exam: Present: soft, Non-Tender, hernia (Midline hernia that is easily reducible). Absent: distention, guarding, rebound - Extremities Exam Extremities exam: Present: normal inspection, full ROM - Neurological Exam Neurological exam: Present: alert, oriented X3 - Psychiatric Psychiatric exam: Present: normal affect, normal mood - Skin Skin exam: Present: pallor Course Course Narrative: 68-year-old male presenting for low hemoglobin and syncope. Prior to syncope patient denies any symptoms. Blood work done at [facility] shows hemoglobin of 6.9. Patient states he has needed transfusions in the past this is due to surgery. At this time will place a large-bore IV complete array of labs including CBC, CMP, type and screen along with ordering 2 units of blood. We will complete a stool occult to rule out GI bleed as the source. Patient is alert and oriented 3 in the room with stable vital signs. Disposition most likely admission but pending results. Patient agrees with this plan - Reevaluation(s) Reevaluation #1: Patient's laboratory analysis shows heme hemoglobin level of 6.9. Patient stool occult positive. Patient has remained asymptomatic throughout his stay. Alert and oriented 3 and hemodynamically stable. We will provide the patient with 2 L of packed red blood cells and 40 mg of IV Protonix. We spoke with the hospitalist tobacco conditioner Dr. Espitia who agrees to accept the patient at this time. Patient agrees to admission. Vital Signs Temperature 97.8 F 09/13/18 15:12 Pulse Rate 83 10/23/18 15:12 Respiratory Rate 20 09/13/18 15:12 Blood Pressure 128/62 09/13/18 15:12 O2 Sat by Pulse Oximetry 96 09/13/18 15:12 Temperature 97.9 F 09/13/18 17:15 Pulse Rate 75 09/13/18 17:15 Respiratory Rate 18 09/13/18 17:15 Blood Pressure 114/69 09/13/18 17:15 O2 Sat by Pulse Oximetry 100 09/13/18 17:15 Oxygen Delivery Oxygen Delivery Room Air Medical Decision Making - Lab Data Result diagrams: 09/13/18 15:43 09/13/18 15:43 Lab Results 09/13/18 09/13/18 09/13/18 Range/Units 15:43 15:43 15:43 WBC 7.9 (4.3-11.1) K/mcL RBC 2.62 L (4.19-5.50) M/mcL Hgb 6.9 L (12.9-16.9) g/dL Hct 22.6 L (37.5-50.1) % MCV 86.3 (83.0-100.0) fL MCH 26.3 L (28.0-33.3) pg MCHC 30.5 L (31.6-35.5) g/dL RDW 15.8 H (11.5-14.5) % Plt Count 154 (140-400) K/mcL MPV 12.8 H (9.4-12.4) fL Immature Gran % 0.4 (0-4) % Seg Neutrophils % 73.9 % Lymphocytes % 17.3 % Monocytes % 7.0 % Eosinophils % 1.0 % Basophils % 0.4 % Neutrophils # 5.8 (1.6-8.9) K/mcL Lymphocytes # 1.4 (0.6-4.6) K/mcL Monocytes # 0.6 (0.0-1.3) K/mcL Eosinophils # 0.1 (0.0-0.6) K/mcL Basophils # 0.0 (0.0-0.2) K/mcL PT 11.3 (9.4-12.1) Seconds INR 1.0 APTT 32.8 (26.0-36.0) Seconds Sodium 135 L (136-145) mEq/L Potassium 4.7 (3.5-5.1) mEq/L Chloride 109 H (98-107) mEq/L Carbon Dioxide 21 L (23-29) mEq/L BUN 20 (8-23) mg/dL Creatinine 1.52 H (0.70-1.30) mg/dL Est GFR ( Amer) 56 L (> 60) Est GFR (Non-Af Amer) 46 L (> 60) BUN/Creatinine Ratio 13 (6-26) Glucose 111 H (70-105) mg/dL Calculated Osmolality 283 (280-300) Lactic Acid (0.5-2.2) mmol/L Calcium 9.0 (8.6-10.3) mg/dL Total Bilirubin 0.2 L (0.3-1.0) mg/dL AST 17 (13-39) Units/L ALT 6 L (7-52) Units/L Alkaline Phosphatase 104 (34-104) Units/L Troponin I < 0.03 (< 0.04) ng/mL B-Natriuretic Peptide (Less than 100) pg/mL Serum Total Protein 6.6 (6.4-8.9) g/dL Albumin 3.6 (3.5-5.7) g/dL Globulin 3.0 (2.4-3.5) g/dL Albumin/Globulin Ratio 1.2 (1.1-2.2) Stool Occult Bld Scrn (Negative) Blood Type Antibody Screen Crossmatch 09/13/18 09/13/18 09/13/18 Range/Units 15:43 15:43 15:43 WBC (4.3-11.1) K/mcL RBC (4.19-5.50) M/mcL Hgb (12.9-16.9) g/dL Hct (37.5-50.1) % MCV (83.0-100.0) fL MCH (28.0-33.3) pg MCHC (31.6-35.5) g/dL RDW (11.5-14.5) % Plt Count (140-400) K/mcL MPV (9.4-12.4) fL Immature Gran % (0-4) % Seg Neutrophils % % Lymphocytes % % Monocytes % % Eosinophils % % Basophils % % Neutrophils # (1.6-8.9) K/mcL Lymphocytes # (0.6-4.6) K/mcL Monocytes # (0.0-1.3) K/mcL Eosinophils # (0.0-0.6) K/mcL Basophils # (0.0-0.2) K/mcL PT (9.4-12.1) Seconds INR APTT (26.0-36.0) Seconds Sodium (136-145) mEq/L Potassium (3.5-5.1) mEq/L Chloride (98-107) mEq/L Carbon Dioxide (23-29) mEq/L BUN (8-23) mg/dL Creatinine (0.70-1.30) mg/dL Est GFR ( Amer) (> 60) Est GFR (Non-Af Amer) (> 60) BUN/Creatinine Ratio (6-26) Glucose (70-105) mg/dL Calculated Osmolality (280-300) Lactic Acid 0.8 (0.5-2.2) mmol/L Calcium (8.6-10.3) mg/dL Total Bilirubin (0.3-1.0) mg/dL AST (13-39) Units/L ALT (7-52) Units/L Alkaline Phosphatase (34-104) Units/L Troponin I (< 0.04) ng/mL B-Natriuretic Peptide 230 H (Less than 100) pg/mL Serum Total Protein (6.4-8.9) g/dL Albumin (3.5-5.7) g/dL Globulin (2.4-3.5) g/dL Albumin/Globulin Ratio (1.1-2.2) Stool Occult Bld Scrn (Negative) Blood Type A POSITIVE Antibody Screen NEGATIVE Crossmatch See Detail 09/13/18 Range/Units 16:30 WBC (4.3-11.1) K/mcL RBC (4.19-5.50) M/mcL Hgb (12.9-16.9) g/dL Hct (37.5-50.1) % MCV (83.0-100.0) fL MCH (28.0-33.3) pg MCHC (31.6-35.5) g/dL RDW (11.5-14.5) % Plt Count (140-400) K/mcL MPV (9.4-12.4) fL Immature Gran % (0-4) % Seg Neutrophils % % Lymphocytes % % Monocytes % % Eosinophils % % Basophils % % Neutrophils # (1.6-8.9) K/mcL Lymphocytes # (0.6-4.6) K/mcL Monocytes # (0.0-1.3) K/mcL Eosinophils # (0.0-0.6) K/mcL Basophils # (0.0-0.2) K/mcL PT (9.4-12.1) Seconds INR APTT (26.0-36.0) Seconds Sodium (136-145) mEq/L Potassium (3.5-5.1) mEq/L Chloride (98-107) mEq/L Carbon Dioxide (23-29) mEq/L BUN (8-23) mg/dL Creatinine (0.70-1.30) mg/dL Est GFR ( Amer) (> 60) Est GFR (Non-Af Amer) (> 60) BUN/Creatinine Ratio (6-26) Glucose (70-105) mg/dL Calculated Osmolality (280-300) Lactic Acid (0.5-2.2) mmol/L Calcium (8.6-10.3) mg/dL Total Bilirubin (0.3-1.0) mg/dL AST (13-39) Units/L ALT (7-52) Units/L Alkaline Phosphatase (34-104) Units/L Troponin I (< 0.04) ng/mL B-Natriuretic Peptide (Less than 100) pg/mL Serum Total Protein (6.4-8.9) g/dL Albumin (3.5-5.7) g/dL Globulin (2.4-3.5) g/dL Albumin/Globulin Ratio (1.1-2.2) Stool Occult Bld Scrn Positive A (Negative) Blood Type Antibody Screen Crossmatch - EKG Data EKG #1 EKG attestation: Yes I reviewed and interpreted this EKG. EKG results narrative: Sinus rhythm. [address] interval 174, QRS 86, QTC 421. No sign of acute ST segment elevation or ischemia.
[2018-09-13 16:23] LABS: Alanine Aminotransferase 6 Units/L (7-52); Albumin 3.6 g/dL (3.5-5.7); Albumin/Globulin Ratio 1.2 (1.1-2.2); Alkaline Phosphatase 104 Units/L (34-104); Aspartate Amino Transferase 17 Units/L (13-39); BUN/Creatinine Ratio 13 (6-26); Bilirubin,Total 0.2 mg/dL (0.3-1.0); Blood Urea Nitrogen 20 mg/dL (8-23); Carbon Dioxide 21 mEq/L (23-29); Chloride 109 mEq/L (98-107); Glucose 111 mg/dL (70-105); Osmolality,Calculated 283 (280-300); Potassium 4.7 mEq/L (3.5-5.1); Sodium 135 mEq/L (136-145); Total Protein 6.6 g/dL (6.4-8.9); Troponin I < 0.03 ng/mL (< 0.04); eGFR For Non-African Americans 46 (> 60)
[2018-09-13] MEDS ORDERED: 0.9 % Sodium Chloride 500 ML ONE (16:33)
--- NOTE | 2018-09-13 16:40 | Emergency Department Note ---
Disposition Clinical Impression: Anemia Qualifiers: Anemia type: unspecified type Qualified Code(s): D64.9 - Anemia, unspecified Disposition: Admitted As Inpatient [facility] [Primary Care Provider[facility] - Forms: ED Satisfaction Letter General Adult HPI - General Chief complaint: ED Syncope Stated complaint: passed out Time Seen by Provider: 09/13/18 15:09 Source: patient, EMS Mode of arrival: EMS Limitations: no limitations - History of Present Illness Pain Scale: 5 - Related Data Home Medications Medication Instructions Recorded Confirmed Albuterol Sulfate [Albuterol 2 puff IH Q6H PRN 02/10/17 05/19/18 Inhaler] Calcium Carbonate/Vitamin D3 2 tab PO BID 02/20/17 05/19/18 [Calcium 1,000 + D3 Caplet] Amlodipine Besylate 10 mg PO DAILY 05/11/18 05/19/18 Atorvastatin [Lipitor] 40 mg PO HS 05/11/18 05/19/18 Docusate Sodium [Dok] 100 mg PO BID 05/11/18 05/19/18 Ipratropium/Albuterol Neb [Duoneb] 3 ml IH Q4HR PRN 05/11/18 05/19/18 Lactobacillus Acidophilus 1 tab PO BID 05/11/18 05/19/18 [Probiotic Acidophilus] Losartan Potassium [Cozaar] 50 mg PO DAILY 05/11/18 05/19/18 Methocarbamol [Robaxin-750] 750 mg PO TID PRN 05/11/18 05/19/18 Ranitidine HCl [Acid Service Counselor] 150 mg PO BID 05/11/18 05/19/18 Trazodone HCl 100 mg PO HS 05/11/18 05/19/18 Lidocaine 4% CRM (LMX) [Lmx 4] 1 appl TP QID PRN 05/19/18 05/19/18 Previous Rx's Medication Instructions Recorded Aspirin Enteric Coated [Aspirin EC] 81 mg PO DAILY 4 Days #90 tablet. 05/13/18 Clopidogrel [Plavix] 75 mg PO DAILY #30 tablet 05/13/18 OxyCODONE/APAP 5/325 [Percocet 1 each PO Q6HR PRN 7 Days #25 05/19/18 5/325 MG] tablet Allergies Allergy/AdvReac Type Severity Reaction Status Date / Time gabapentin Allergy See Verified 05/22/18 17:50 Comments hydrochlorothiazide Allergy See Verified 05/22/18 17:50 Comments hydroxyzine [From Vistaril] Allergy See Verified 05/22/18 17:50 Comments Constitutional: Denies: fever, chills Eyes: Reports: as per HPI ENT ED: Reports: as per HPI Cardiovascular: Denies: chest pain, palpitations, dyspnea on exertion Respiratory: Denies: cough, dyspnea, wheezes Gastrointestinal: Denies: abdominal pain, nausea, vomiting Genitourinary: Reports: as per HPI Musculoskeletal: Reports: as per HPI Integumentary: Reports: as per HPI Neurological: Denies: numbness, paresthesias Psychiatric: Reports: as per HPI Endocrine: Reports: as per HPI Hematological/Lymphatic: Reports: as per HPI Allergic/Immunologic: Reports: as per HPI Past Medical History - Past Medical History Medical history: Reports: COPD, hyperlipidemia, hypertension, peripheral artery disease, renal disease, other Surgical history: Reports: herniorrhaphy, LE Bypass, LE stent(s), LE vascular intervention, vascular surgery Psychiatric history: Reports: anxiety, depression, PTSD - Social History Smoking Status: Current every day smoker Smokeless Tobacco Status: No Alcohol use: Reports: none Drug use: Reports: none Physical Exam - General Limitations: no limitations General appearance: alert, in no apparent distress Course - Consultations Consultation #1: discussed case with Dr. Espitia and she has accepted patient for admission Time: 16:55 Vital Signs Temperature 97.8 F 09/13/18 15:12 Pulse Rate 83 09/13/18 15:12 Respiratory Rate 20 09/13/18 15:12 Blood Pressure 128/62 09/13/18 15:12 O2 Sat by Pulse Oximetry 96 09/13/18 15:12 Temperature 97.8 F 09/13/18 15:12 Pulse Rate 76 09/13/18 16:39 Respiratory Rate 20 09/13/18 16:39 Blood Pressure 114/54 09/13/18 16:39 O2 Sat by Pulse Oximetry 100 09/13/18 16:39 Oxygen Delivery Oxygen Delivery Room Air Medical Decision Making - Lab Data Result diagrams: 09/13/18 15:43 09/13/18 15:43 Lab Results 09/13/18 09/13/18 09/13/18 Range/Units 15:43 15:43 15:43 WBC 7.9 (4.3-11.1) K/mcL RBC 2.62 L (4.19-5.50) M/mcL Hgb 6.9 L (12.9-16.9) g/dL Hct 22.6 L (37.5-50.1) % MCV 86.3 (83.0-100.0) fL MCH 26.3 L (28.0-33.3) pg MCHC 30.5 L (31.6-35.5) g/dL RDW 15.8 H (11.5-14.5) % Plt Count 154 (140-400) K/mcL MPV 12.8 H (9.4-12.4) fL Immature Gran % 0.4 (0-4) % Seg Neutrophils % 73.9 % Lymphocytes % 17.3 % Monocytes % 7.0 % Eosinophils % 1.0 % Basophils % 0.4 % Neutrophils # 5.8 (1.6-8.9) K/mcL Lymphocytes # 1.4 (0.6-4.6) K/mcL Monocytes # 0.6 (0.0-1.3) K/mcL Eosinophils # 0.1 (0.0-0.6) K/mcL Basophils # 0.0 (0.0-0.2) K/mcL PT 11.3 (9.4-12.1) Seconds INR 1.0 APTT 32.8 (26.0-36.0) Seconds Sodium 135 L (136-145) mEq/L Potassium 4.7 (3.5-5.1) mEq/L Chloride 109 H (98-107) mEq/L Carbon Dioxide 21 L (23-29) mEq/L BUN 20 (8-23) mg/dL Creatinine 1.52 H (0.70-1.30) mg/dL Est GFR ( Amer) 56 L (> 60) Est GFR (Non-Af Amer) 46 L (> 60) BUN/Creatinine Ratio 13 (6-26) Glucose 111 H (70-105) mg/dL Calculated Osmolality 283 (280-300) Lactic Acid (0.5-2.2) mmol/L Calcium 9.0 (8.6-10.3) mg/dL Total Bilirubin 0.2 L (0.3-1.0) mg/dL AST 17 (13-39) Units/L ALT 6 L (7-52) Units/L Alkaline Phosphatase 104 (34-104) Units/L Troponin I < 0.03 (< 0.04) ng/mL Serum Total Protein 6.6 (6.4-8.9) g/dL Albumin 3.6 (3.5-5.7) g/dL Globulin 3.0 (2.4-3.5) g/dL Albumin/Globulin Ratio 1.2 (1.1-2.2) Blood Type Antibody Screen Crossmatch 09/13/18 09/13/18 Range/Units 15:43 15:43 WBC (4.3-11.1) K/mcL RBC (4.19-5.50) M/mcL Hgb (12.9-16.9) g/dL Hct (37.5-50.1) % MCV (83.0-100.0) fL MCH (28.0-33.3) pg MCHC (31.6-35.5) g/dL RDW (11.5-14.5) % Plt Count (140-400) K/mcL MPV (9.4-12.4) fL Immature Gran % (0-4) % Seg Neutrophils % % Lymphocytes % % Monocytes % % Eosinophils % % Basophils % % Neutrophils # (1.6-8.9) K/mcL Lymphocytes # (0.6-4.6) K/mcL Monocytes # (0.0-1.3) K/mcL Eosinophils # (0.0-0.6) K/mcL Basophils # (0.0-0.2) K/mcL PT (9.4-12.1) Seconds INR APTT (26.0-36.0) Seconds Sodium (136-145) mEq/L Potassium (3.5-5.1) mEq/L Chloride (98-107) mEq/L Carbon Dioxide (23-29) mEq/L BUN (8-23) mg/dL Creatinine (0.70-1.30) mg/dL Est GFR ( Amer) (> 60) Est GFR (Non-Af Amer) (> 60) BUN/Creatinine Ratio (6-26) Glucose (70-105) mg/dL Calculated Osmolality (280-300) Lactic Acid 0.8 (0.5-2.2) mmol/L Calcium (8.6-10.3) mg/dL Total Bilirubin (0.3-1.0) mg/dL AST (13-39) Units/L ALT (7-52) Units/L Alkaline Phosphatase (34-104) Units/L Troponin I (< 0.04) ng/mL Serum Total Protein (6.4-8.9) g/dL Albumin (3.5-5.7) g/dL Globulin (2.4-3.5) g/dL Albumin/Globulin Ratio (1.1-2.2) Blood Type A POSITIVE Antibody Screen NEGATIVE Crossmatch See Detail Attestation Statement - Attestation Attestation: I examined this patient and my medical decision-making was reviewed with the Resident Physician. I agree with the documented findings, disposition and treatment plan as described except to the extent set forth below. 68 year old male presents to the ED with cmplaints of synmcope while a the eye doctor today and loss of stool hen he had his syncopal episode. [facility] was found to have a hgb of 6.9. He has a hisstory of GI bleed in the past and was last tranfused in Nov. Patinet appears pale and has good rectal tone WE will do sycope workup and transfuse 2units and then admit to medicine
[2018-09-13] MEDS ORDERED: Pantoprazole 40 MG VIAL IVP ONE (17:18)
[2018-09-13] MEDS ORDERED: Acetaminophen 325 MG TABLET PO PRN (19:07)
[2018-09-13] MEDS ORDERED: Naloxone 0.4 MG/ML INJ IVP PRN (19:07)
[2018-09-13] MEDS ORDERED: OXYCODONE Oral CONC 10 MG/0.5 ML ORAL.SYG SL PRN (19:33)
[2018-09-13] MEDS ORDERED: Ondansetron 4 MG/2 ML VIAL IVP PRN (19:33)
--- NOTE | 2018-09-13 19:48 | Internal Med History&Physical ---
Date of Encounter: 09/13/18 Time of Encounter: 19:37 Internal Medicine - H&P: HPI Chief complaint: Syncopal episode Admitted From: Emergency Dept Plans for Post Hospital Care: Home History of present illness: Mr. Luna is a 68 year old male past medical history of COPD CAD PVD aortofemoral bypass AAA hypertension hyperlipidemia CKD-according to the patient he was at a ophthalmology appointment at the [facility] waiting room, he was playing a game on his phone and apparently experienced a syncopal episode. He states the next thing he remembers our people all around him.-Significant other at bedside reports that patient had fell back-mouth was wide open and he was unresponsive. Significant other reports that patient was not breathing and CODE BLUE was called. Patient was incontinent of urine she did not notice any tremors She states that they were placing him on the monitor when patient is awake and asked "why did you wake me up I was sleeping"-patient was unconscious for unknown amount time. Lab work was completed at the [facility] which did show hemoglobin of 6.9. He was Hemoccult positive Patient does have a history of GI bleed due to colitis approximately one year ago. Patient states he has undergone a colo noscopy and EGD approximate 4 months ago at the [facility] he states that he was told they were okay. He denies any melena hematochezia or hematemesis. He has had low hemoglobin before however he states it was due to surgery. He is currently taking Pepcid daily as well as aspirin and Plavix. He states that he has been experiencing low blood pressures currently on 2 blood pressure medications-he reports his blood pressure was in the 70s 2 days ago, and that he has not been taking his blood pressure medication daily but every other day. He denies any past cardiac history or history of seizures. Patient was typed and screened in the ER for 2 units PRBCs and was receiving first unit upon arrival to the floor. Patient denies any chest pain shortness of breath or abdominal pain at this time. He is hemodynamically stable I did review with Dr. Bravo Past Med Surg Social Fam HX - Past Medical History Medical history: COPD, hyperlipidemia, hypertension, peripheral artery disease, renal disease, other Additional medical history: anemia Psychiatric history: anxiety, depression, PTSD - Past Surgical History Surgical History: herniorrhaphy, LE Bypass, LE stent(s), LE vascular intervention, vascular surgery Additional surgical history: AAA repair. lumbar surgery. femoral bypass B/L - Social History Smoking Status: Current every day smoker Smokeless Tobacco Status: No Alcohol use: none Drug use: none - Family History Mother Hx Family Endocrine Disorder: Yes Father Hx Family Endocrine Disorder: Yes Internal Medicine - H&P: Meds Albuterol Sulfate [Albuterol Inhaler] 2 puff IH Q6H PRN 02/10/17 [History] Calcium Carbonate/Vitamin D3 [Calcium 1,000 + D3 Caplet] 2 tab PO BID 02/20/17 [History] Amlodipine Besylate 10 mg PO DAILY 05/11/18 [History] Atorvastatin [Lipitor] 40 mg PO HS 05/11/18 [History] Docusate Sodium [Dok] 100 mg PO BID 05/11/18 [History] Lactobacillus Acidophilus [Probiotic Acidophilus] 1 tab PO BID 05/11/18 [History] Losartan Potassium [Cozaar] 50 mg PO DAILY 05/11/18 [History] Methocarbamol [Robaxin-750] 750 mg PO TID PRN 05/11/18 [History] Ranitidine HCl [Acid Event Executive] 150 mg PO BID 05/11/18 [History] Aspirin Enteric Coated [Aspirin EC] 81 mg PO DAILY 4 Days #90 tablet. 05/13/18 [Rx] Clopidogrel [Plavix] 75 mg PO DAILY #30 tablet 05/13/18 [Rx] Lidocaine 4% CRM (LMX) [Lmx 4] 1 appl TP QID PRN 05/19/18 [History] Albuterol Neb [Proventil Neb] 2.5 mg IH Q6H PRN 09/13/18 [History] Budesonide/Formoterol 160/4.5 [Symbicort 160/4.5] 2 puff IH BIDR 09/13/18 [History] Pregabalin [Lyrica] 150 mg PO BID 09/13/18 [History] Tiotropium [Spiriva] 18 mcg IH DAILY 09/13/18 [History] Trazodone HCl 150 mg PO HS 09/13/18 [History] Allergy/AdvReac Type Severity Reaction Status Date / Time gabapentin Allergy See Verified 05/22/18 17:50 Comments hydrochlorothiazide Allergy See Verified 05/22/18 17:50 Comments hydroxyzine [From Vistaril] Allergy See Verified 05/22/18 17:50 Comments All Systems PM: A 10-system review of systems was performed and is negative for pertinent findings except as documented above in the HPI. - Constitutional Constitutional: no chills, no fever(s), no night sweats - EENT Eyes: no change in vision, no discharge, no pain, no photophobia Ears: no ear discharge, no ear pain, no tinnitus Nose, mouth and throat: no dysphagia, no nasal discharge, no neck pain, no sore throat - Cardiovascular Cardiovascular ROS IM: no chest pain, no diaphoresis, no dyspnea, no li ghtheadedness, no palpitations, no syncope - Respiratory Respiratory: no cough, no dyspnea, no wheezing, no excessive phlegm production - Gastrointestinal Gastrointestinal: no abdominal pain, no diarrhea, no hematemesis, no hematochezia, no melena, no nausea, no vomiting - Musculoskeletal Musculoskeletal ROS IM: no numbness, no tingling - Integumentary Integumentary IM: no rash, no unusual bruising - Neurological Neurological ROS: no confusion, no convulsions, no focal weakness, no numbness, no tingling, no tremor(s) - Hematologic/Lymphatic Hematologic/Lymphatic: no easy bruising - Constitutional Vitals: Temp Pulse Resp BP Pulse Ox 97.9 F 76 20 101/55 99 09/13/18 17:15 09/13/18 18:16 09/13/18 18:16 09/13/18 18:16 09/13/18 18:16 General appearance: Present: A&O X 3, answers questions appropriately Exam: see below - Head Head exam: Present: atraumatic, normocephalic - Eye Eye exam: Present: PERRL, conjuntiva pink, sclera anicteric Pupils: Present: PERRL - Neck Neck exam general surgery: Present: supple, trachea midline. Absent: lymphadenopathy - Respiratory Respiratory exam: Present: CTAB. Absent: accessory muscle use, rales, rhonchi, wheezes - Cardiovascular Cardiovascular exam: Present: RRR, +S1, +S2. Absent: diastolic murmur, gallop, rubs, systolic murmur - GI/Abdominal GI/Abdominal exam: Present: normal bowel sounds, soft, no peritoneal signs. Absent: distended, tenderness - Extremities Exam Extremities exam: Present: warm, radial pulses palpable and symmetrical. Absent: calf tenderness, cyanotic, pedal edema - Neurological Exam Neurological exam: Present: CN II-XII intact, oriented X3, no focal deficits. Absent: pronater drift, facial droop, speech deficit - Skin Skin exam: Present: dry, intact Internal Med - H&P Results - Labs CBC & Chem 7: 09/13/18 15:43 09/13/18 15:43 Labs: Short CBC 09/13/18 Range/Units 15:43 WBC 7.9 (4.3-11.1) K/mcL Hgb 6.9 L (12.9-16.9) g/dL Hct 22.6 L (37.5-50.1) % Plt Count 154 (140-400) K/mcL Neutrophils # 5.8 (1.6-8.9) K/mcL BMP 09/13/18 15:43 Sodium 135 L Potassium 4.7 Chloride 109 H Carbon Dioxide 21 L BUN 20 Creatinine 1.52 H Glucose 111 H Calcium 9.0 Cardiac Enzymes 09/13/18 Range/Units 15:43 Troponin I < 0.03 (< 0.04) ng/mL Liver Function 09/13/18 Range/Units 15:43 Total Bilirubin 0.2 L (0.3-1.0) mg/dL AST 17 (13-39) Units/L ALT 6 L (7-52) Units/L Alkaline Phosphatase 104 (34-104) Units/L Albumin 3.6 (3.5-5.7) g/dL - Impressions ITS Impressions Chest X-Ray 09/13/18 15:20 IMPRESSION: Possible minimal interstitial pulmonary edema in both lung bases raising the possibility of low grade congestive heart failure. No evident pneumonia. D/ / Alberto Cantor MD / Alberto Cantor MD Interpreting Provider: Alberto Cantor MD - Assessment and plan (1) Syncope Current Visit: Yes Status: Acute Assessment and plan: Most likely secondary to blood loss -patient was anemic on presentation hemoglobin 6.9 did have positive occult stool. We will give 2 units PRBCs We will check CT of head if not already completed in the ER[facility] unable to locate records at this time Check EKG if not completed in ER/[facility] unable to locate records at this time We will monitor troponins 3 We will obtain orthostatics vital signs-patient reports that blood pressure has been running low at home with systolic in the 70s Qualifiers: Syncope type: unspecified Qualified Code(s): R55 - Syncope and collapse (2) Anemia Current Visit: Yes Status: Acute Assessment and plan: 1 presented with hemoglobin 6.9 suspect related to GI bleed has history of past GI bleed colitis Hemoccult was positive has been on aspirin and Plavix. Reports that he had a colonoscopy and EGD 4 months ago at the [facility] which he states was okay he was placed on Pepcid Patient denies any melena hematochezia hemat emesis. Was type and screen for 2 units PRBCs has received 1 unit we will transfuse second unit and monitor H&H every 6 hours Consult to GI patient will be nothing by mouth after midnight for EGD in a.m. We will check EKG Qualifiers: Anemia type: unspecified type Qualified Code(s): D64.9 - Anemia, unspecified (3) GI bleeding Current Visit: Yes Status: Acute Assessment and plan: Patient has a history of GI bleed in the past requiring transfusion proximal and one year ago underwent EGD which did reveal ischemic colitis he underwent EGD and colonoscopy or months ago at the [facility] which he states was okay We will continue with Protonix IV twice a day Consulted GI Patient nothing by mouth after midnight for possible EGD in a.m. Qualifiers: GI bleed type/associated pathology: unspecified gastrointestinal hemorrhage type Qualified Code(s): K92.2 - Gastrointestinal hemorrhage, unspecified (4) DVT prophylaxis Current Visit: No Status: Acute Assessment and plan: SCDs due to bleeding (5) CKD (chronic kidney disease), stage III Current Visit: No Status: Chronic Assessment and plan: Patient has a history of CK D-currently 46 GFR creatinine 1.52 which appears to be round baseline Patient has been experiencing low blood pressures at home we will hold blood pressure medication for now Transfuse PRBCs Monitor intake output daily weights Avoid nephrotoxins-patient states that he was taking NSAIDs and was recently stopped by his PCP (6) COPD (chronic obstructive pulmonary disease) Current Visit: No Status: Chronic Assessment and plan: 1 currently stable oxygen as needed to maintain SPO2 greater than 90% Qualifiers: COPD type: emphysema Emphysema type: panlobular Qualified Code(s): J43.1 - Panlobular emphysema (7) HLD (hyperlipidemia) Current Visit: No Status: Chronic Assessment and plan: Continue with home medications once able to take medications orally Qualifiers: Hyperlipidemia type: mixed hyperlipidemia Qualified Code(s): E78.2 - Mixed hyperlipidemia (8) HTN (hypertension) Current Visit: No Status: Chronic Assessment and plan: Patient has been hypotensive he has been holding his medications at home and taking them every other day. Patient reports his blood pressure has been in the 70 systolic. Currently he is 100-111 systolic. We will hold antihypertensives for now Qualifiers: Hypertension type: essential hypertension Qualified Code(s): I10 - Essential (primary) hypertension (9) Tobacco abuse Current Visit: No Status: Chronic - Time Spent With Patient Total time spent is greater than 50% in coordination of care (as documented) at patient's floor/unit and/or counseling patient:
[2018-09-13] MEDS ORDERED: 0.9 % Sodium Chloride 250 ML ONE (20:56)
[2018-09-13] MEDS: OXYCODONE Oral CONC 10 MG/0.5 ML ORAL.SYG SL PRN (21:46)
[2018-09-14 02:45] LABS: Basophils % 0.5 %; Eosinophils # 0.1 K/mcL (0.0-0.6); Eosinophils % 1.8 %; Hematocrit 28.9 % (37.5-50.1); Immature Granulocytes % 0.2 % (0-4); Lymphocytes # 1.7 K/mcL (0.6-4.6); Lymphocytes % 28.2 %; Mean Corpuscular HGB Conc 31.1 g/dL (31.6-35.5); Mean Corpuscular Volume 86.8 fL (83.0-100.0); Monocytes # 0.7 K/mcL (0.0-1.3); Monocytes % 11.7 %; Neutrophils # 3.5 K/mcL (1.6-8.9); Platelet Count 139 K/mcL (140-400); Red Blood Count 3.33 M/mcL (4.19-5.50); Red Cell Distribution Width 15.1 % (11.5-14.5); Segmented Neutrophils % 57.6 %
[2018-09-14 03:02] LABS: BUN/Creatinine Ratio 13 (6-26); Blood Urea Nitrogen 17 mg/dL (8-23); Calcium 9.4 mg/dL (8.6-10.3); Carbon Dioxide 24 mEq/L (23-29); Chloride 113 mEq/L (98-107); Glucose 98 mg/dL (70-105); Osmolality,Calculated 292 (280-300); Potassium 4.5 mEq/L (3.5-5.1); Sodium 140 mEq/L (136-145); eGFR For Non-African Americans 53 (> 60)
[2018-09-14] MEDS: OXYCODONE Oral CONC 10 MG/0.5 ML ORAL.SYG SL PRN ×4 (05:55→20:37)
--- NOTE | 2018-09-14 08:47 | Internal Med Progress Note ---
Hospitalist Progress Note - Encounter Date of Encounter: 09/14/18 Time of Encounter: 08:44 - Subjective Interval History: Patient seen and examined at bedside. Currently denies any CP or SOB, no s/sx of active bleeding Currently NPO awaiting EGD per GI - Exam Vitals: Temp Pulse Resp BP Pulse Ox 98.4 F 78 15 135/70 90 09/14/18 07:19 09/14/18 07:19 09/14/18 07:19 09/14/18 07:19 09/14/18 07:19 Exam: Constitutional: no chills, no fever(s), no night sweats - EENT Eyes: no change in vision, no discharge, no pain, no photophobia Ears: no ear discharge, no ear pain, no tinnitus Nose, mouth and throat: no dysphagia, no nasal discharge, no neck pain, no sore throat - Cardiovascular Cardiovascular ROS IM: no chest pain, no diaphoresis, no dyspnea, no lightheadedness, no palpitations, no syncope - Respiratory Respiratory: no cough, no dyspnea, no wheezing, no excessive phlegm production - Gastrointestinal Gastrointestinal: no abdominal pain, no diarrhea, no hematemesis, no hematochezia, no melena, no nausea, no vomiting - Musculoskeletal Musculoskeletal ROS IM: no numbness, no tingling - Integumentary Integumentary IM: no rash, no unusual bruising - Neurological Neurological ROS: no confusion, no convulsions, no focal weakness, no numbness, no tingling, no tremor(s) - Hematologic/Lymphatic Hematologic/Lymphatic: no easy bruising - Assessment and Plan (1) Syncope Current Visit: Yes Status: Acute Assessment and Plan: Most likely secondary to blood loss -patient was anemic on presentation hemoglobin 6.9 did have positive occult stool. We will give 2 units PRBCs We will check CT of head if not already completed in the [facility] unable to locate records at this time Check EKG if not completed in ER[facility] unable to locate records at this time We will monitor troponins 3 We will obtain orthostatics vital signs-patient reports that blood pressure has been running low at home with systolic in the 70s 09/14 Hgb much improved as well as BP- orthostatic VS this am are good - syncope most likely secondary to anemia CT of head with no acute intracranial changes hold bp meds and monitor tropinin negative x3 - EKG NSR (2) Anemia Current Visit: Yes Status: Acute Assessment and Plan: 1 presented with hemoglobin 6.9 suspect related to GI bleed has history of past GI bleed colitis Hemoccult was positive has been on aspirin and Plavix. Reports that he had a colonoscopy and EGD 4 months ago at the [facility] which he states was okay he was placed on Pepcid Patient denies any melena hematochezia hematemesis. Was type and screen for 2 units PRBCs has received 1 unit we will transfuse second unit and monitor H&H every 6 hours Consult to GI patient will be nothing by mouth after midnight for EGD in a.m. We will check EKG 09/14 Most likely to r/t GI bleed Hgb improved up to 9- No s/sx of active bleeding at this time. Positive occult stool NPO for EGD this AM GI consulted appreciate recommendations Cont with protonix IV BID (3) GI bleeding Current Visit: Yes Status: Acute Assessment and Plan: Patient has a history of GI bleed in the past requiring transfusion proximal and one year ago underwent EGD which did reveal ischemic colitis he underwent EGD and colonoscopy or months ago at the [facility] which he states was okay We will continue with Protonix IV twice a day Consulted GI Patient nothing by mouth after midnight for possible EGD in a.m. 09/14 Hgb improved up to 9- No s/sx of active bleeding at this time. Positive occult stool NPO for EGD this AM GI consulted appreciate recommendations Cont with protonix IV BID (4) DVT prophylaxis Current Visit: No Status: Acute Assessment and Plan: SCDs due to bleeding (5) CKD (chronic kidney disease), stage III Current Visit: No Status: Chronic Assessment and Plan: Patient has a history of CK D-currently 46 GFR creatinine 1.52 which appears to be round baseline Patient has been experiencing low blood pressures at home we will hold blood pressure medication for now Transfuse PRBCs Monitor intake output daily weights Avoid nephrotoxins-patient states that he was taking NSAIDs and was recently stopped by his PCP 09/14 Creatinine/GFR improving received 2 units PRBC will monitor closely monitor BP maintain MAP>60 Hold BP meds for now avoid nephrotoxins (6) COPD (chronic obstructive pulmonary disease) Current Visit: No Status: Chronic Assessment and Plan: 1 currently stable oxygen as needed to maintain SPO2 greater than 90% 09/14 Stable no wheezing- O2 as needed (7) HLD (hyperlipidemia) Current Visit: No Status: Chronic Assessment and Plan: Continue with home medications once able to take medications orally (8) HTN (hypertension) Current Visit: No Status: Chronic Assessment and Plan: Patient has been hypotensive he has been holding his medications at home and taking them every other day. Patient reports his blood pressure has been in the 70 systolic. Currently he is 100-111 systolic. We will hold antihypertensives for now 09/14 improved hold BP meds for now (9) Tobacco abuse Current Visit: No Status: Chronic Assessment and Plan: encourage patient to stop smoking- offered nicotine patch, declined at this time - Time Spent with Patient Total time spent is greater than 50% in coordination of care (as documented) at patient's floor/unit and/or counseling patient: Internal Medicine: Result - Labs CBC & Chem 7: 09/14/18 01:30 09/14/18 02:33 Labs: Short CBC 09/13/18 09/14/18 Range/Units 15:43 01:30 WBC 7.9 6.1 (4.3-11.1) K/mcL Hgb 6.9 L 9.0 L D (12.9-16.9) g/dL Hct 22.6 L 28.9 L (37.5-50.1) % Plt Count 154 139 L (140-400) K/mcL Neutrophils # 5.8 3.5 (1.6-8.9) K/mcL BMP 09/13/18 09/14/18 15:43 02:33 Sodium 135 L 140 Potassium 4.7 4.5 Chloride 109 H 113 H Carbon Dioxide 21 L 24 BUN 20 17 Creatinine 1.52 H 1.35 H Glucose 111 H 98 Calcium 9.0 9.4 Cardiac Enzymes 09/13/18 09/13/18 09/14/18 Range/Units 15:43 21:28 02:33 Troponin I < 0.03 < 0.03 < 0.03 (< 0.04) ng/mL Liver Function 09/13/18 Range/Units 15:43 Total Bilirubin 0.2 L (0.3-1.0) mg/dL AST 17 (13-39) Units/L ALT 6 L (7-52) Units/L Alkaline Phosphatase 104 (34-104) Units/L Albumin 3.6 (3.5-5.7) g/dL - ABG Interpretation ABG results: PT/INR, D-dimer PT 11.3 Seconds (9.4-12.1) 09/13/18 15:43 - Impressions Impressions Chest X-Ray 09/13/18 15:20 IMPRESSION: Possible minimal interstitial pulmonary edema in both lung bases raising the possibility of low grade congestive heart failure. No evident pneumonia. D/ / Alberto Cantor MD / Alberto Cantor MD Interpreting Provider: Alberto Cantor MD Head CT 09/14/18 21:29 IMPRESSION: No acute intracranial abnormality. Extensive nonspecific white matter hypoattenuating foci suggesting chronic white matter microangiopathic ischemic changes. D/ / 09/14/2018 07:33:10 Doug Brown MD / lynette Interpreting Provider: Doug Brown MD Consult Discharge Plan - Plan [facility]errals: [facility] [Primary Care Provider] - (1) Syncope Qualifiers: Syncope type: unspecified Qualified Code(s): R55 - Syncope and collapse (2) Anemia Qualifiers: Anemia type: unspecified type Qualified Code(s): D64.9 - Anemia, unspecified (3) GI bleeding Qualifiers: GI bleed type/associated pathology: unspecified gastrointestinal hemorrhage type Qualified Code(s): K92.2 - Gastrointestinal hemorrhage, unspecified (6) COPD (chronic obstructive pulmonary disease) Qualifiers: COPD type: emphysema Emphysema type: panlobular Qualified Code(s): J43.1 - Panlobular emphysema (7) HLD (hyperlipidemia) Qualifiers: Hyperlipidemia type: mixed hyperlipidemia Qualified Code(s): E78.2 - Mixed hyperlipidemia (8) HTN (hypertension) Qualifiers: Hypertension type: essential hypertension Qualified Code(s): I10 - Essential (primary) hypertension
[2018-09-14 09:53] LABS: Hematocrit 30.4 % (37.5-50.1); Hemoglobin 9.5 g/dL (12.9-16.9)
--- NOTE | 2018-09-14 10:22 | Gastroenterology Consult Note ---
<Mandeep Wood - Last Filed: 09/14/18 10:20> Date of Encounter: 09/14/18 Time of Encounter: 09:30 - Assessment and plan (1) Anemia Current Visit: Yes Status: Acute Assessment and plan: On admission Hgb 6.9 with MCV 86.3, he received 2 units PRBC and this AM Hgb 9. Continue to monitor CBC and transfuse PRBC as needed. Plan for push enteroscopy today, keep patient NPO. Qualifiers: Anemia type: unspecified type Qualified Code(s): D64.9 - Anemia, unspecifi ed (2) GI bleeding Current Visit: Yes Status: Acute Assessment and plan: EGD and colonoscopy 4 months ago were "okay" per patient report. Plan for push enteroscopy today, to r/o esophagitis, gastritis, duodenitits, gastritis, duodenitis, PUD, keep patient NPO. Qualifiers: GI bleed type/associated pathology: unspecified gastrointestinal hemorrhage type Qualified Code(s): K92.2 - Gastrointestinal hemorrhage, unspecified - Time Spent With Patient Total time spent is greater than 50% in coordination of care (as documented) at patient's floor/unit and/or counseling patient: GI History of Present Illness - Data of Consult Patient: known to practice within the last 3 years Consult date: 09/14/18 Requesting Physician: Shirin Espitia - Consult Narrative Reason for consult: GI Bleed History of present illness: Mr. Luna is a 68 year old male with PMHx of COPD, HLD, HTN, PVD, AAA, CAD, and CKD. He was at a ophthalmology appointment at the [facility] waiting room, he was playing a game on his phone and apparently experienced a syncopal episode. He states the next thing he remembers our people all around him. Significant other at bedside reports that patient had fell back-mouth was wide open and he was unresponsive. Significant other reports that patient was not breathing and CODE BLUE was called. Patient was incontinent of urine she did not notice any tremors. Lab work was completed at the [facility] which did show hemoglobin of 6.9. He was Hemoccult positive. Patient states he has undergone a colonoscopy and EGD approximate 4 months ago at the [facility] he states that he was told they were okay. He denies fever, chills, chest pain, shortness of breath, abdominal pain, nausea, vomiting, melena, or hematochezia. On admission here, Hgb 6.9 with MCV 86.3. He was given 2 units PRBC, and this AM Hgb 9. Procedures: EGD and Colonoscopy 4 months ago, "ok" per patient report. NSAIDs: ASA Anticoagulation: Plavix Past Med Surg Social Fam HX - Past Medical History Medical history: COPD, hyperlipidemia, hypertension, peripheral artery disease, renal disease, other Additional medical history: anemia Psychiatric history: anxiety, depression, PTSD - Past Surgical History Surgical History: herniorrhaphy, LE Bypass, LE stent(s), LE vascular intervention, vascular surgery Additional surgical history: AAA repair. lumbar surgery. femoral bypass B/L - Social History Smoking Status: Current every day smoker Packs per day: 1.4 Smokeless Tobacco Status: No Alcohol use: none Drug use: none - Family History Father Hx Family Endocrine Disorder: Yes Mother Hx Family Endocrine Disorder: Yes - Gastrointestinal Gastrointestinal: Present: as per HPI - Constitutional Constitutional: as per HPI - EENT Eyes: as per HPI Ears: Present: as per HPI Nose, mouth and throat: Present: as per HPI - Cardiovascular Cardiovascular ROS: Present: as per HPI - Respiratory Respiratory IM: Present: as per HPI - Genitourinary Genitourinary: Absent: change in color, Urinary frequency - Neurological ROS Neurological GI: Present: as per HPI - Hematologic/Lymphatic Hematologic/Lymphatic pediatric: Present: as per HPI - Musculoskeletal Musculoskeletal ROS GI: Present: as per HPI - Integumentary Integumentary GI: Present: as per HPI - Psychiatric ROS Psychiatric GI: Present: as per HPI - Endocrine Endocrine IM: Present: as per HPI - Constitutional Vitals: Temp Pulse Resp BP Pulse Ox 98.4 F 78 15 135/70 90 09/14/18 07:19 09/14/18 07:19 09/14/18 07:19 09/14/18 07:19 09/14/18 07:19 General appearance: Present: cooperative, A&O X 3, no acute distress, answers questions appropriately - Head Head exam: Present: atraumatic, normocephalic - Eye Eye exam: Present: normal appearance, sclera anicteric - ENT ENT exam: Present: mucous membranes dry - Neck Neck exam general surgery: Present: normal inspection, trachea midline - Respiratory Respiratory exam: Present: CTAB. Absent: rales, rhonchi - Cardiovascular Cardiovascular exam: Present: RRR, +S1, +S2 - GI/Abdominal GI/Abdominal exam: Present: soft, no peritoneal signs. Absent: distended, firm, guarding, tenderness - Rectal Rectal exam: Present: deferred - Extremities Exam Extremities exam: Present: warm - Neurological Exam Neurological exam: Present: no focal deficits - Psychiatric Psychiatric exam: Present: normal affect, normal mood - Skin Skin exam: Present: dry, intact, normal color, warm Results - Labs CBC & Chem 7: 09/14/18 09:30 09/14/18 02:33 Labs: Last Result Calcium 9.4 mg/dL (8.6-10.3) 09/14/18 02:33 Troponin I < 0.03 ng/mL (< 0.04) 09/14/18 02:33 Entire Visit Hgb 9.5 g/dL (12.9-16.9) L 09/14/18 09:30 Hct 30.4 % (37.5-50.1) L 09/14/18 09:30 PT 11.3 Seconds (9.4-12.1) 09/13/18 15:43 Total Bilirubin 0.2 mg/dL (0.3-1.0) L 09/13/18 15:43 AST 17 Units/L (13-39) 09/13/18 15:43 ALT 6 Units/L (7-52) L 09/13/18 15:43 - ABG ABG results: PT/INR, D-dimer PT 11.3 Seconds (9.4-12.1) 09/13/18 15:43 - Impressions Impressions Chest X-Ray 09/13/18 15:20 IMPRESSION: Possible minimal interstitial pulmonary edema in both lung bases raising the possibility of low grade congestive heart failure. No evident pneumonia. D/ / Alberto Cantor MD / Alberto Cantor MD Interpreting Provider: Alberto Cantor MD Head CT 09/14/18 21:29 IMPRESSION: No acute intracranial abnormality. Extensive nonspecific white matter hypoattenuating foci suggesting chronic white matter microangiopathic ischemic changes. D/ / 09/14/2018 07:33:10 Doug Brown MD / lynette Interpreting Provider: Doug Brown MD Consult Discharge Plan - Plan [facility]errals: [facility]Primary Care Provider[facility] - <Brock Jack - Last Filed: 09/16/18 09:55> - Time Spent With Patient Total time spent is greater than 50% in coordination of care (as documented) at patient's floor/unit and/or counseling patient: GI History of Present Illness - Data of Consult Requesting Physician: Shirin Espitia - Consult Narrative History of present illness: Mr. Luna is a 68 year old male - Constitutional Vitals: Temp Pulse Resp BP Pulse Ox 97.9 F 83 14 135/75 99 09/16/18 06:50 09/16/18 06:50 09/16/18 06:50 09/16/18 06:50 09/16/18 06:50 Results - Labs CBC & Chem 7: 09/16/18 03:00 09/16/18 03:00 Labs: Last Result Calcium 10.0 mg/dL (8.6-10.3) 09/16/18 03:00 Troponin I < 0.03 ng/mL (< 0.04) 09/14/18 02:33 Vitamin B12 175 pg/mL (250-1100) L 09/15/18 19:45 Urine Opiates Screen Negative ng/mL (Hsozzw=[id number]) 09/15/18 14:17 Entire Visit Hgb 9.8 g/dL (12.9-16.9) L 09/16/18 03:00 Hct 30.6 % (37.5-50.1) L 09/16/18 03:00 PT 11.3 Seconds (9.4-12.1) 09/13/18 15:43 Total Bilirubin 0.2 mg/dL (0.3-1.0) L 09/13/18 15:43 AST 17 Units/L (13-39) 09/13/18 15:43 ALT 6 Units/L (7-52) L 09/13/18 15:43 - ABG ABG results: PT/INR, D-dimer PT 11.3 Seconds (9.4-12.1) 09/13/18 15:43 - Impressions Impressions Foot X-Ray 09/15/18 00:00 IMPRESSION: No metallic radiopaque foreign bodies are identified. D/ / Wenceslao Arnett MD / Wenceslao Arnett MD Interpreting Provider: Wenceslao Arnett MD Tibia/Fibula X-Ray 09/15/18 00:00 IMPRESSION: No metallic radiopaque foreign bodies are identified. D/ / Wenceslao Arnett MD / Wenceslao Arnett MD Interpreting Provider: Wenceslao Arnett MD - Attending Attestation Plan push enteroscopy today patient's an EGD and a colonoscopy in the past 2 of AVMs in the on the EGD look for other AVMs further recommendations made after endoscopy thank you for this consultation I examined this patient and my medical decision-making was reviewed with the Resident Physician. I agree with the documented findings, disposition and treatment plan as described except to the extent set forth below.
[2018-09-14] MEDS ORDERED: *HR* Propofol 200 MG/20 ML VIAL IVP ONE (12:17)
[2018-09-14] MEDS ORDERED: Propofol 500 MG/50 ML INFUS..BTL ONE (12:17)
[2018-09-14] MEDS ORDERED: Lidocaine -MPF 2% 2 ML VIAL ONE (12:17)
--- NOTE | 2018-09-14 13:14 | Anesthesia Evaluation PreOp ---
Date of Encounter: 09/14/18 Time of Encounter: 13:12 - Past History Planned Operation: push enteroscopy Cardiac History: HTN, Hyperlipidemia, Other (PVD, AAA, syncopal event likely related to anemia/bleeding) Pulmonary History: Smoker, COPD [employer] SCIENTIST History: Denies Any Significant HX Other Medical History: Renal (ckd) Anesthesia History: No Prior Anesthetic Complications Alcohol Use: none Drug use: none Medications and Allergies Albuterol Sulfate [Albuterol Inhaler] 2 puff IH Q6H PRN 02/10/17 [History] Calcium Carbonate/Vitamin D3 [Calcium 1,000 + D3 Caplet] 2 tab PO BID 02/20/17 [History] Amlodipine Besylate 10 mg PO DAILY 05/11/18 [History] Atorvastatin [Lipitor] 40 mg PO HS 05/11/18 [History] Docusate Sodium [Dok] 100 mg PO BID 05/11/18 [History] Lactobacillus Acidophilus [Probiotic Acidophilus] 1 tab PO BID 05/11/18 [History] Losartan Potassium [Cozaar] 50 mg PO DAILY 05/11/18 [History] Methocarbamol [Robaxin-750] 750 mg PO TID PRN 05/11/18 [History] Ranitidine HCl [Acid Fiberglass Boat Finisher] 150 mg PO BID 05/11/18 [History] Aspirin Enteric Coated [Aspirin EC] 81 mg PO DAILY 4 Days #90 tablet. 05/13/18 [Rx] Clopidogrel [Plavix] 75 mg PO DAILY #30 tablet 05/13/18 [Rx] Lidocaine 4% CRM (LMX) [Lmx 4] 1 appl TP QID PRN 05/19/18 [History] Albuterol Neb [Proventil Neb] 2.5 mg IH Q6H PRN 09/13/18 [History] Budesonide/Formoterol 160/4.5 [Symbicort 160/4.5] 2 puff IH BIDR 09/13/18 [History] Pregabalin [Lyrica] 150 mg PO BID 09/13/18 [History] Tiotropium [Spiriva] 18 mcg IH DAILY 09/13/18 [History] Trazodone HCl 150 mg PO HS 09/13/18 [History] Allergy/AdvReac Type Severity Reaction Status Date / Time gabapentin Allergy See Verified 05/22/18 17:50 Comments hydrochlorothiazide Allergy See Verified 05/22/18 17:50 Comments hydroxyzine [From Vistaril] Allergy See Verified 05/22/18 17:50 Comments - Meds/Allergy Pre-op Review Medications Reviewed: Yes Allergies Reviewed: Yes Beta Blockers on Current Med List: No Anesthesia Results - Labs 09/14/18 09:30 09/14/18 02:33 - Imaging EKG: report reviewed, image reviewed (SR) Additional studies: 2017 TTE: Impressions: LVEF 60%. Normal left ventricular size and systolic function. There is evidence of mild diastolic dysfunction of the left ventricle. Normal right ventricular size and function. No significant valvular dysfunction. No pulmonary hypertension. Anesthesia Exam Last Vital Signs Temp 98.1 F 09/14/18 12:56 Pulse 77 09/14/18 12:56 Resp 18 09/14/18 12:56 BP 129/73 09/14/18 12:56 Pulse Ox 94 09/14/18 12:56 Weight: 71 kg NPO (# of Hours): > 8 hrs - HEENT Pupil (Motor): Pupils equal, EOMI Mallampati: III Teeth: Edentulous Oral Opening: Greater than 3 - [employer] SCI[employer]IST LOC: Oriented [employer] SCIENTIST Motor: Normal RUE, Normal LUE, Normal RLE, Normal LLE, Normal Face - Cardiac Rhythm: Regular Murmur: None - Pulmonary Breath Sounds: bilateral Clear Respiratory Effort: Symmetrical Anesthesia Assess/Plan ASA Score: 3 Modified Glenn Scale for Level of Consciousness: Cooperative, oriented, and tranquil Anesthetic Plan: MAC Monitoring Plan: Standard Monitors Recovery Plan: PACU
[2018-09-15] MEDS: Pantoprazole 40 MG VIAL IVP SCH ×2 (05:40→16:47)
[2018-09-15] MEDS: OXYCODONE Oral CONC 10 MG/0.5 ML ORAL.SYG SL PRN ×4 (05:40→21:25)
[2018-09-15 09:53] LABS: Basophils % 0.6 %; Eosinophils # 0.2 K/mcL (0.0-0.6); Eosinophils % 3.3 %; Hematocrit 32.4 % (37.5-50.1); Hemoglobin 9.8 g/dL (12.9-16.9); Immature Granulocytes % 0.2 % (0-4); Lymphocytes # 1.5 K/mcL (0.6-4.6); Lymphocytes % 24.1 %; Mean Corpuscular HGB Conc 30.2 g/dL (31.6-35.5); Mean Corpuscular Volume 89.3 fL (83.0-100.0); Mean Platelet Volume 12.7 fL (9.4-12.4); Monocytes # 0.6 K/mcL (0.0-1.3); Monocytes % 9.7 %; Platelet Count 139 K/mcL (140-400); Red Blood Count 3.63 M/mcL (4.19-5.50); Red Cell Distribution Width 15.5 % (11.5-14.5); Segmented Neutrophils % 62.1 %
[2018-09-15 10:08] LABS: BUN/Creatinine Ratio 12 (6-26); Blood Urea Nitrogen 16 mg/dL (8-23); Calcium 9.3 mg/dL (8.6-10.3); Carbon Dioxide 26 mEq/L (23-29); Chloride 108 mEq/L (98-107); Glucose 90 mg/dL (70-105); Osmolality,Calculated 291 (280-300); Potassium 4.4 mEq/L (3.5-5.1); Sodium 140 mEq/L (136-145); eGFR For Non-African Americans 55 (> 60)
--- NOTE | 2018-09-15 13:40 | Internal Med Progress Note ---
Hospitalist Progress Note - Encounter Date of Encounter: 09/15/18 Time of Encounter: 13:33 - Subjective Interval History: Patient seen and examined at bedside. Patient's is at bedside voices concern patient seems confused he is unable to operate his phone or operates a word game which she placed daily. He is able to follow simple commands alert a nd oriented 3 I did note that during conversation he was word searching and at times slow to answer. CT of head 09/14 was negative-we will perform MRI order some lab work for infectious process as well. and patient updated on treatment plan and verbalized understanding - Exam Vitals: Temp Pulse Resp BP Pulse Ox 98.7 F 71 14 138/64 95 09/15/18 10:25 09/15/18 10:25 09/15/18 10:25 09/15/18 10:25 09/15/18 10:25 Exam: Constitutional: no chills, no fever(s), no night sweats - EENT Eyes: no change in vision, no discharge, no pain, no photophobia Ears: no ear discharge, no ear pain, no tinnitus Nose, mouth and throat: no dysphagia, no nasal discharge, no neck pain, no sore throat - Cardiovascular Cardiovascular ROS IM: no chest pain, no diaphoresis, no dyspnea, no lightheadedness, no palpitations, no syncope - Respiratory Respiratory: no cough, no dyspnea, no wheezing, no excessive phlegm production - Gastrointestinal Gastrointestinal: no abdominal pain, no diarrhea, no hematemesis, no hematochezia, no melena, no nausea, no vomiting - Musculoskeletal Musculoskeletal ROS IM: no numbness, no tingling - Integumentary Integumentary IM: no rash, no unusual bruising - Neurological Neurological ROS: has some difficulty finding words follows simple commands , no convulsions, no focal weakness, no numbness, no tingling, no tremor(s) - Hematologic/Lymphatic Hematologic/Lymphatic: no easy bruising - Assessment and Plan (1) Syncope Current Visit: Yes Status: Acute Assessment and Plan: Most likely secondary to blood loss -patient was anemic on presentation hemoglobin 6.9 did have positive occult stool. We will give 2 units PRBCs We will check CT of head if not already completed in the [facility] unable to locate records at this time Check EKG if not completed in [facility] unable to locate records at this time We will monitor troponins 3 We will obtain orthostatics vital signs-patient reports that blood pressure has been running low at home with systolic in the 70s 09/14 Hgb much improved as well as BP- orthostatic VS this am are good - syncope most likely secondary to anemia CT of head with no acute intracranial changes hold bp meds and monitor tropinin negative x3 - EKG NSR 09/15 CT of head with no acute intracranial abnormalities We will obtain cardiac echo We will obtain carotid Dopplers Orthostatic vital signs EKG normal sinus rhythm (2) Anemia Current Visit: Yes Status: Acute Assessment and Plan: 1 presented with hemoglobin 6.9 suspect related to GI bleed has history of past GI bleed colitis Hemoccult was positive has been on aspirin and Plavix. Reports that he had a colonoscopy and EGD 4 months ago at the [facility] which he states was okay he was placed on Pepcid Patient denies any melena hematochezia hematemesis. Was type and screen for 2 units PRBCs has received 1 unit we will transfuse second unit and monitor H&H every 6 hours Consult to GI patient will be nothing by mouth after midnight for EGD in a.m. We will check EKG 09/14 Most likely to r/t GI bleed Hgb improved up to 9- No s/sx of active bleeding at this time. Positive occult stool NPO for EGD this AM GI consulted appreciate recommendations Cont with protonix IV BID 09/15 Secondary to Acute blood loss Hemoglobin stable EGD completed-2 angiodysplastic lesions with no bleeding were found in the proximal jejunum, mild diffuse gastritis in the stomach Advance diet as tolerated Continue with Protonix (3) GI bleeding Current Visit: Yes Status: Acute Assessment and Plan: Patient has a history of GI bleed in the past requiring transfusion proximal and one year ago underwent EGD which did reveal ischemic colitis he underwent EGD and colonoscopy or months ago at the [facility] which he states was okay We will continue with Protonix IV twice a day Consulted GI Patient nothing by mouth after midnight for possible EGD in a.m. 09/14 Hgb improved up to 9- No s/sx of active bleeding at this time. Positive occult stool NPO for EGD this AM GI consulted appreciate recommendations Cont with protonix IV BID 09/15 Hemoglobin is stable no active bleeding noted-did have a positive occult stool GI consulted -Underwent EGD- EGD completed-2 angiodysplastic lesions with no bleeding were found in the proximal jejunum, mild diffuse gastritis in the stomach (4) DVT prophylaxis Current Visit: No Status: Acute Assessment and Plan: SCDs due to bleeding (5) CKD (chronic kidney disease), stage III Current Visit: No Status: Chronic Assessment and Plan: Patient has a history of CK D-currently 46 GFR creatinine 1.52 which appears to be round baseline Patient has been experiencing low blood pressures at home we will hold blood pressure medication for now Transfuse PRBCs Monitor intake output daily weights Avoid nephrotoxins-patient states that he was taking NSAIDs and was recently stopped by his PCP 09/14 Creatinine/GFR improving received 2 units PRBC will monitor closely monitor BP maintain MAP>60 Hold BP meds for now avoid nephrotoxins 09/15 Much improved creatinine back to baseline Blood pressure improved Avoid nephrotoxins (6) COPD (chronic obstructive pulmonary disease) Current Visit: No Status: Chronic Assessment and Plan: 1 currently stable oxygen as needed to maintain SPO2 greater than 90% 09/14 Stable no wheezing- O2 as needed 09/15 Continues to be stable (7) HLD (hyperlipidemia) Current Visit: No Status: Chronic Assessment and Plan: Continue with home medications once able to take medications orally (8) HTN (hypertension) Current Visit: No Status: Chronic Assessment and Plan: Patient has been hypotensive he has been holding his medications at home and taking them every other day. Patient reports his blood pressure has been in the 70 systolic. Currently he is 100-111 systolic. We will hold antihypertensives for now 09/14 improved hold BP meds for now 09/15 Improved into the hold blood pressure medicines for now (9) Tobacco abuse Current Visit: No Status: Chronic Assessment and Plan: encourage patient to stop smoking- offered nicotine patch, declined at this time - Time Spent with Patient Total time spent is greater than 50% in coordination of care (as documented) at patient's floor/unit and/or counseling patient: Internal Medicine: Result - Labs CBC & Chem 7: 09/15/18 09:30 09/15/18 09:30 Labs: Short CBC 09/15/18 Range/Units 09:30 WBC 6.4 (4.3-11.1) K/mcL Hgb 9.8 L (12.9-16.9) g/dL Hct 32.4 L (37.5-50.1) % Plt Count 139 L (140-400) K/mcL Neutrophils # 4.0 (1.6-8.9) K/mcL BMP 09/15/18 09:30 Sodium 140 Potassium 4.4 Chloride 108 H Carbon Dioxide 26 BUN 16 Creatinine 1.30 Glucose 90 Calcium 9.3 - ABG Interpretation ABG results: PT/INR, D-dimer PT 11.3 Seconds (9.4-12.1) 09/13/18 15:43 - Impressions Impressions Head CT 09/14/18 21:29 IMPRESSION: No acute intracranial abnormality. Extensive nonspecific white matter hypoattenuating foci suggesting chronic white matter microangiopathic ischemic changes. D/ / 09/14/2018 07:33:10 Doug Brown MD / lynette Interpreting Provider: Doug Brown MD Consult Discharge Plan - Plan [facility]errals: [facility] [Primary Care Provider] - (1) Syncope Qualifiers: Syncope type: unspecified Qualified Code(s): R55 - Syncope and collapse (2) Anemia Qualifiers: Anemia type: unspecified type Qualified Code(s): D64.9 - Anemia, unspecified (3) GI bleeding Qualifiers: GI bleed type/associated pathology: unspecified gastrointestinal hemorrhage type Qualified Code(s): K92.2 - Gastrointestinal hemorrhage, unspecified (6) COPD (chronic obstructive pulmonary disease) Qualifiers: COPD type: emphysema Emphysema type: panlobular Qualified Code(s): J43.1 - Panlobular emphysema (7) HLD (hyperlipidemia) Qualifiers: Hyperlipidemia type: mixed hyperlipidemia Qualified Code(s): E78.2 - Mixed hyperlipidemia (8) HTN (hypertension) Qualifiers: Hypertension type: essential hypertension Qualified Code(s): I10 - Essential (primary) hypertension
[2018-09-15 15:33] LABS: Bilirubin,Urine Negative (Negative); Blood,Urine Negative (Negative); Clarity,Urine Clear (Clear); Color,Urine Yellow (Yellow); Glucose,Urine (UA) Normal (Normal); Ketones,Urine Negative (Negative); Leukocyte Esterase,Urine Negative (Negative); Nitrite,Urine Negative (Negative); Protein,Urine Negative (Neg-Trace); Specific Gravity,Urine 1.013 (1.010-1.025); Urobilinogen,Urine Normal (Normal)
[2018-09-15 21:19] LABS: Amphetamine Screen,Urine Negative ng/mL (Cutoff=1000); Barbiturate Screen,Urine Negative ng/mL (Cutoff=200); Benzodiazepines Screen,Urine Negative ng/mL (Cutoff=200); Cannabinoid Screen,Urine Negative ng/mL (Cutoff = 50); Cocaine Screen,Urine Negative ng/mL (Cutoff= 300); Opiate Screen,Urine Negative ng/mL (Cutoff=300); Phencyclidine Screen,Urine Negative ng/mL (Cutoff=25)
[2018-09-16] MEDS: OXYCODONE Oral CONC 10 MG/0.5 ML ORAL.SYG SL PRN ×4 (03:06→21:55)
[2018-09-16 03:32] LABS: Basophils % 0.5 %; Eosinophils # 0.2 K/mcL (0.0-0.6); Eosinophils % 2.9 %; Hematocrit 30.6 % (37.5-50.1); Hemoglobin 9.8 g/dL (12.9-16.9); Immature Granulocytes % 0.1 % (0-4); Lymphocytes # 1.6 K/mcL (0.6-4.6); Lymphocytes % 21.4 %; Mean Corpuscular Hemoglobin 27.3 pg (28.0-33.3); Mean Corpuscular Volume 85.2 fL (83.0-100.0); Monocytes # 0.8 K/mcL (0.0-1.3); Monocytes % 11.1 %; Neutrophils # 4.7 K/mcL (1.6-8.9); Platelet Count 150 K/mcL (140-400); Red Blood Count 3.59 M/mcL (4.19-5.50); Red Cell Distribution Width 15.4 % (11.5-14.5)
[2018-09-16 03:52] LABS: BUN/Creatinine Ratio 12 (6-26); Blood Urea Nitrogen 16 mg/dL (8-23); Carbon Dioxide 24 mEq/L (23-29); Chloride 107 mEq/L (98-107); Glucose 117 mg/dL (70-105); Osmolality,Calculated 290 (280-300); Potassium 4.4 mEq/L (3.5-5.1); Sodium 139 mEq/L (136-145); eGFR For Non-African Americans 54 (> 60)
[2018-09-16] MEDS: Pantoprazole 40 MG VIAL IVP SCH ×2 (05:36→17:29)
--- NOTE | 2018-09-16 10:29 | Internal Med Progress Note ---
Hospitalist Progress Note - Encounter Date of Encounter: 09/16/18 Time of Encounter: 11:00 - Subjective Interval History: Patient seen and examined at bedside. 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 Patient did undergo MRI of head this a.m. which did reveal acute infarction in the left frontal carona radiata- no hemorrhage. Loss of normal flow void within the left internal carotid artery may represent a slow flow versus occlusion CTA of head and neck recommended-I did speak with Dr. Hart neurologist concerning findings recommending CTA of head and neck however patient does have kidney disease we will order MRA head and neck as well as EEG per neurology recommendations. Carotid duplex -80-99% stenosis located on the right ICA with calcified plaque. Left ICA is occluded. I did discuss findings with the patient as well as who is at bedside. Did discuss treatment plan which patient and verbalized understanding and agreement. - Exam Vitals: Temp Pulse Resp BP Pulse Ox 97.9 F 83 14 135/75 99 09/16/18 06:50 09/16/18 06:50 09/16/18 06:50 09/16/18 06:50 09/16/18 06:50 Exam: Constitutional: no chills, no fever(s), no night sweats - EENT Eyes: no change in vision, no discharge, no pain, no photophobia Ears: no ear discharge, no ear pain, no tinnitus Nose, mouth and throat: no dysphagia, no nasal discharge, no neck pain, no sore throat - Cardiovascular Cardiovascular ROS IM: no chest pain, no diaphoresis, no dyspnea, no lightheadedness, no palpitations, no syncope - Respiratory Respiratory: no cough, no dyspnea, no wheezing, no excessive phlegm production - Gastrointestinal Gastrointestinal: no abdominal pain, no diarrhea, no hematemesis, no hematochezia, no melena, no nausea, no vomiting - Musculoskeletal Musculoskeletal ROS IM: no numbness, no tingling - Integumentary Integumentary IM: no rash, no unusual bruising - Neurological Neurological ROS: has some difficulty finding words follows simple commands , no convulsions, no focal weakness, no numbness, no tingling, no tremor(s) - Hematologic/Lymphatic Hematologic/Lymphatic: no easy bruising - Assessment and Plan (1) Syncope Current Visit: Yes Status: Acute Assessment and Plan: Most likely secondary to blood loss -patient was anemic on presentation hemoglobin 6.9 did have positive occult stool. We will give 2 units PRBCs We will check CT of head if not already completed in the ER[facility] unable to [facility] records at this time Check EKG if not completed in [facility] unable to locate records at this time We will monitor troponins 3 We will obtain orthostatics vital signs-patient reports that blood pressure has been running low at home with systolic in the 70s 09/14 Hgb much improved as well as BP- orthostatic VS this am are good - syncope most likely secondary to anemia CT of head with no acute intracranial changes hold bp meds and monitor tropinin negative x3 - EKG NSR 09/15 CT of head with no acute intracranial abnormalities We will obtain cardiac echo We will obtain carotid Dopplers Orthostatic vital signs EKG normal sinus rhythm 09/16 MRI completed which did not show acute infarction and left frontal wright radiata-no hemorrhage Loss of normal flow void within the left internal carotid artery may represent slow flow versus occlusion Bilateral carotid duplex preliminary shows 80-90% stenosis located on the right ICA with calcified plaque and left ICA is occluded Echo shows * LVEF 60-65%. * Normal LV chamber size, wall thickness and function. * Normal left ventricular diastolic function. Right Ventricle * Normal right ventricular structure and function. Left Atrium * Mildly dilated left atrium. Right Atrium * Normal right atrial size. Interatrial Septum * Interatrial septum not well evaluated. * No evidence of PFO by color Doppler. Aortic Valve * Mildly thickened aortic valve leaflets. I did consult neurology as well as vascular surgery-MRA of head and neck completed due to CKD (2) Anemia Current Visit: Yes Status: Acute Assessment and Plan: 1 presented with hemoglobin 6.9 suspect related to GI bleed has history of past GI bleed colitis Hemoccult was positive has been on aspirin and Plavix. Reports that he had a colonoscopy and EGD [address] which he states was okay he was placed on Pepcid Patient denies any melena hematochezia hematemesis. Was type and screen for 2 units PRBCs has received 1 unit we will transfuse second unit and monitor H&H every 6 hours Consult to GI patient will be nothing by mouth after midnight for EGD in a.m. We will check EKG 09/14 Most likely to r/t GI bleed Hgb improved up to 9- No s/sx of active bleeding at this time. Positive occult stool NPO for EGD this AM GI consulted appreciate recommendations Cont with protonix IV BID 09/15 Secondary to Acute blood loss Hemoglobin stable EGD completed-2 angiodysplastic lesions with no bleeding were found in the proximal jejunum, mild diffuse gastritis in the stomach Advance diet as tolerated Continue with Protonix 09/16 Hemoglobin has remained stable Advance diet as tolerated Continue with Protonix (3) GI bleeding Current Visit: Yes Status: Acute Assessment and Plan: Patient has a history of GI bleed in the past requiring transfusion proximal and one year ago underwent EGD which did reveal ischemic colitis he underwent EGD and colonoscopy or months ago at the CT which he states was okay We will continue with Protonix IV twice a day Consulted GI Patient nothing by mouth after midnight for possible EGD in a.m. 09/14 Hgb improved up to 9- No s/sx of active bleeding at this time. Positive occult stool NPO for EGD this AM GI consulted appreciate recommendations Cont with protonix IV BID 09/15 Hemoglobin is stable no active bleeding noted-did have a positive occult stool GI consulted -Underwent EGD- EGD completed-2 angiodysplastic lesions with no bleeding were found in the proximal jejunum, mild diffuse gastritis in the stomach 09/16 Hemoglobin has been stable we will continue to monitor (4) DVT prophylaxis Current Visit: No Status: Acute Assessment and Plan: SCDs due to bleeding (5) CKD (chronic kidney disease), stage III Current Visit: No Status: Chronic Assessment and Plan: Patient has a history of CK D-currently 46 GFR creatinine 1.52 which appears to be round baseline Patient has been experiencing low blood pressures at home we will hold blood pressure medication for now Transfuse PRBCs Monitor intake output daily weights Avoid nephrotoxins-patient states that he was taking NSAIDs and was recently stopped by his PCP 09/14 Creatinine/GFR improving received 2 units PRBC will monitor closely monitor BP maintain MAP>60 Hold BP meds for now avoid nephrotoxins 09/15 Much improved creatinine back to baseline Blood pressure improved Avoid nephrotoxins 09/16 Creatinine at baseline we will continue to monitor (6) COPD (chronic obstructive pulmonary disease) Current Visit: No Status: Chronic Assessment and Plan: 1 currently stable oxygen as needed to maintain SPO2 greater than 90% 09/14 Stable no wheezing- O2 as needed 09/15 Continues to be stable 09/16 Stable oxygen as needed bronchodilators (7) HLD (hyperlipidemia) Current Visit: No Status: Chronic Assessment and Plan: Continue with home medications once able to take medications orally 09/16 Continue with statins (8) HTN (hypertension) Current Visit: No Status: Chronic Assessment and Plan: Patient has been hypotensive he has been holding his medications at home and taking them every other day. Patient reports his blood pressure has been in the 70 systolic. Currently he is 100-111 systolic. We will hold antihypertensives for now 09/14 improved hold BP meds for now 09/15 Improved into the hold blood pressure medicines for now 09/16 Continue to hold blood pressure medication at this time blood pressure is stable (9) Tobacco abuse Current Visit: No Status: Chronic Assessment and Plan: encourage patient to stop smoking- offered nicotine patch, declined at this time (10) CVA (cerebral vascular accident) Current Visit: Yes Status: Acute Assessment and Plan: 1 Patient has been experiencing confusion and experienced a syncopal episode prior to presentation. He did have a short episode of confusion yesterday however returned to baseline MRI of head was completed which does show foci of acute infarction in the left frontal wright radiataassociated hemorrhage Neurology was consulted and Continue cardiac monitoring Continue neuro assessments-NHISS Continue with aspirin and statin Monitor blood pressure Carotid duplex shows 80-90% stenosis located on the right ICA and left ICAs occluded (11) Carotid stenosis Current Visit: Yes Status: Acute Assessment and Plan: Carotid duplex completed which showed 80-99% stenosis located in the right ICA with calcified plaque. Left ICA is occluded. -Patient- and patient's report that they have known for some time but he has had severe carotid stenosis and [facility] think [facility] required any surgical intervention at that time-he does have a vascular history with AAA repair as well as aortic byfem MRI was completed which did show foci of acute infarction and left frontal wright radiata Cont with ASa and statin - Time Spent with Patient Total time spent is greater than 50% in coordination of care (as documented) at patient's floor/unit and/or counseling patient: Internal Medicine: Result - Labs CBC & Chem 7: 09/16/18 03:00 09/16/18 03:00 Labs: Short CBC 09/16/18 Range/Units 03:00 WBC 7.3 (4.3-11.1) K/mcL Hgb 9.8 L (12.9-16.9) g/dL Hct 30.6 L (37.5-50.1) % Plt Count 150 (140-400) K/mcL Neutrophils # 4.7 (1.6-8.9) K/mcL BMP 09/16/18 03:00 Sodium 139 Potassium 4.4 Chloride 107 Carbon Dioxide 24 BUN 16 Creatinine 1.32 H Glucose 117 H Calcium 10.0 Urine 09/15/18 Range/Units 14:17 Urine Color Yellow (Yellow) Urine Clarity Clear (Clear) Urine pH 6.0 (5.0-8.0) pH Units Ur Specific [place] 1.013 (1.010-1.025) Urine Protein Negative (Neg-Trace) mg/dL Urine Glucose (UA) Normal (Normal) mg/dL - ABG Interpretation ABG results: PT/INR, D-dimer PT 11.3 Seconds (9.4-12.1) 09/13/18 15:43 - Impressions Impressions Foot X-Ray 09/15/18 00:00 IMPRESSION: No metallic radiopaque foreign bodies are identified. D/ / Wenceslao Arnett MD / Wenceslao Arnett MD Interpreting Provider: Wenceslao Arnett MD Tibia/Fibula X-Ray 09/15/18 00:00 IMPRESSION: No metallic radiopaque foreign bodies are identified. D/ / Wenceslao Arnett MD / Wenceslao Arnett MD Interpreting Provider: Wenceslao Arnett MD Consult Discharge Plan - Plan [facility]errals: [facility] [Primary Care Provider] - (1) Syncope Qualifiers: Syncope type: unspecified Qualified Code(s): R55 - Syncope and collapse (2) Anemia Qualifiers: Anemia type: unspecified type Qualified Code(s): D64.9 - Anemia, unspecified (3) GI bleeding Qualifiers: GI bleed type/associated pathology: unspecified gastrointestinal hemorrhage type Qualified Code(s): K92.2 - Gastrointestinal hemorrhage, unspecified (6) COPD (chronic obstructive pulmonary disease) Qualifiers: COPD type: emphysema Emphysema type: panlobular Qualified Code(s): J43.1 - Panlobular emphysema (7) HLD (hyperlipidemia) Qualifiers: Hyperlipidemia type: mixed hyperlipidemia Qualified Code(s): E78.2 - Mixed hyperlipidemia (8) HTN (hypertension) Qualifiers: Hypertension type: essential hypertension Qualified Code(s): I10 - Essential (primary) hypertension (10) CVA (cerebral vascular accident) Qualifiers: CVA mechanism: unspecified Qualified Code(s): I63.9 - Cerebral infarction, unspecified (11) Carotid stenosis Qualifiers: Laterality: bilateral Qualified Code(s): I65.23 - Occlusion and stenosis of bilateral carotid arteries
[2018-09-16] MEDS ORDERED: Albuterol 2.5 MG/3 ML NEBULIZER IH PRN (12:54)
[2018-09-16] MEDS ORDERED: Ipratropium/Albuterol Neb 3 ML IH SCH (17:00)
[2018-09-16] MEDS ORDERED: Cyanocobalamin (B-12) 1,000 MCG/ML VIAL IM ONE (18:35)
--- NOTE | 2018-09-16 19:44 | EEG/EMG/Oth Biometrics Report ---
EEG Procedure Report Date of procedure: 09/16/18 EEG Procedure: Routine EEG Procedure Note: This is a report of a 21 channel bipolar and referential montage EEG. A posterior dominant rhythm of 8-9 Hz moderate voltage alpha frequencies identified symmetrically in the posterior head regions. This rhythm attenuates symmetrically with eye opening. Occasional drowsiness identified as identified as reference by dropout of the posterior dominant rhythm and emergence of mixed moderate to low voltage theta and mixed alpha frequencies. Occasional spindle like activity is identified. Hyperventilation is not performed during the recording. Photic stimulation is performed and does not produce a driving response. The EKG rhythm strip reveals normal sinus rhythm at 72 bpm. Impressions: This is a normal EEG with periods of drowsiness. There is no evidence of epileptiform activity identified during the study. Comment: A normal EEG does not preclude a diagnosis of seizure or epilepsy. If the clinical suspicion for seizure activity is high, serial EEGs or perhaps a prolonged recording may increase the yield. Please correlate clinically.
--- NOTE | 2018-09-16 19:47 | Neurology - Consult Note ---
Date of Encounter: 09/16/18 Time of Encounter: 19:34 Assessment and Plan (1) Syncope Current Visit: Yes Status: Acute At this juncture I feel that the most likely reason for the syncope may have been hypotension. The history of present illness taken by the hospitalist states that he had been on 2 blood pressure medications and that his blood pressure had been 70 systolic. Although he does have a totally occluded left internal carotid artery and the right internal carotid artery is 80-89% stenosis, syncope due to bilateral internal carotid artery occlusion or stenosis is felt to be rare. In any regard it is advisable that at some point in time he should have a right carotid endarterectomy. Certainly risk factor management and lifestyle changes are paramount. I find no reason to suspect seizure activity. Perhaps cardiogenic etiologies for syncope should be considered and ruled out. Recommend maintaining statins, and antiplatelet therapy which are standard. Perhaps he should be reduced to only one antihypertensive agent. Qualifiers: Syncope type: unspecified Qualified Code(s): R55 - Syncope and collapse (2) CVA (cerebral vascular accident) Current Visit: Yes Status: Acute Patient has also suffered an acute left frontal lacunar infarct in the centrum semiovale ovale. He certainly has a number of risk factors including peripheral vascular disease, hypertension, hyperlipidemia, and long-term tobacco dependence. At this juncture I would simply recommend maintaining his antiplatelet therapy, statin therapy and an antihypertensive regimen that is inappropriate for him. He does not have any deficits however and will not need any type of additional therapy. I will reevaluate him at your request. Qualifiers: CVA mechanism: unspecified Qualified Code(s): I63.9 - Cerebral infarction, unspecified History of Present Illness HPI: Mr. Luna is a 68 year old male who was seen for neurologic consultation secondary to an episode of syncope. Apparently on 09/13/2018 while at the [facility] he was sitting in the chair with his neck flexed playing a game on his cell phone. He abruptly sat up, stopped breathing and apparently lost consciousness. His did not witness the event. She states that a "CODE BLUE" was called. She states initially they did not get a pulse however thereabouts shock him and identified that he did have a pulse. She also states that initially he was not breathing but they would shake him and he will take a breath and then stopped breathing again. He did not have any seizure activity but apparently lost urinary continence. The entire episode lasted about 10 minutes I understand. He denied any type of prodrome. He denied any warning sign whatsoever. Upon arrival here MRI scan of the brain was obtained and did reveal an acute infarct in the left frontal centrum semiovale ovale. He is also had carotid Doppler study which reveals an occluded left internal carotid artery proximally at the origin and there is also eating 89% stenosis of the right internal carotid artery. MRA however shows occluded left ICA which is likely chronic however he right ICA was stated to be normal and MRA. I read the EEG myself which was normal and there was no seizure activity present. Apparently 2 days prior to his admission his blood pressure was set to be 70 to stop it. He has a known history of severe peripheral vascular disease, hyperlipidemia, hypertension, chronic nicotine addiction. Past Med Surg Social Fam HX - Past Medical History Medical history: COPD, hyperlipidemia, hypertension, peripheral artery disease, renal disease, other Additional medical history: anemia Psychiatric history: anxiety, depression, PTSD - Past Surgical History Surgical History: herniorrhaphy, LE Bypass, LE stent(s), LE vascular intervention, vascular surgery Additional surgical history: AAA repair. lumbar surgery. femoral bypass B/L - Social History Smoking Status: Current every day smoker Packs per day: 1.4 Smokeless Tobacco Status: No Alcohol use: none Drug use: none - Family History Mother Hx Family Endocrine Disorder: Yes Father Hx Family Endocrine Disorder: Yes Medications and Allergies Albuterol Sulfate [Albuterol Inhaler] 2 puff IH Q6H PRN 02/10/17 [History] Calcium Carbonate/Vitamin D3 [Calcium 1,000 + D3 Caplet] 2 tab PO BID 02/20/17 [History] Amlodipine Besylate 10 mg PO DAILY 05/11/18 [History] Atorvastatin [Lipitor] 40 mg PO HS 05/11/18 [History] Docusate Sodium [Dok] 100 mg PO BID 05/11/18 [History] Lactobacillus Acidophilus [Probiotic Acidophilus] 1 tab PO BID 05/11/18 [History] Losartan Potassium [Cozaar] 50 mg PO DAILY 05/11/18 [History] Methocarbamol [Robaxin-750] 750 mg PO TID PRN 05/11/18 [History] Ranitidine HCl [Acid Hospitalist Program Director] 150 mg PO BID 05/11/18 [History] Aspirin Enteric Coated [Aspirin EC] 81 mg PO DAILY 4 Days #90 tablet. 05/13/18 [Rx] Clopidogrel [Plavix] 75 mg PO DAILY #30 tablet 05/13/18 [Rx] Lidocaine 4% CRM (LMX) [Lmx 4] 1 appl TP QID PRN 05/19/18 [History] Albuterol Neb [Proventil Neb] 2.5 mg IH Q6H PRN 09/13/18 [History] Budesonide/Formoterol 160/4.5 [Symbicort 160/4.5] 2 puff IH BIDR 09/13/18 [History] Pregabalin [Lyrica] 150 mg PO BID 09/13/18 [History] Tiotropium [Spiriva] 18 mcg IH DAILY 09/13/18 [History] Trazodone HCl 150 mg PO HS 09/13/18 [History] Allergy/AdvReac Type Severity Reaction Status Date / Time gabapentin Allergy See Verified 05/22/18 17:50 Comments hydrochlorothiazide Allergy See Verified 05/22/18 17:50 Comments hydroxyzine [From Vistaril] Allergy See Verified 05/22/18 17:50 Comments All Systems: The remainder of the systems were reviewed and are negative Review of Systems: The balance of the systems review is negative. Physical Examination - Vital Signs Vital Signs: Initial Vital Signs Temp Pulse Resp BP Pulse Ox 97.8 F 83 20 128/62 96 09/13/18 15:12 09/13/18 15:12 09/13/18 15:12 09/13/18 15:12 09/13/18 15:12 - Neurologic Detailed motor examination: full strength in all major muscle groups Motor examination - right side: 5/5: deltoids, biceps, triceps, wrist flexion, wrist extension, software quality engineer, hip flexors, tibialis Anterior, quadriceps, toe extension (EHL), plantarflexion Motor examination - left side: 5/5: deltoids, biceps, triceps, wrist flexion, wrist extension, hip flexors, software quality engineer, quadriceps, tibialis Anterior, toe extension (EHL), plantarflexion Mental Status Examination: awake, alert, oriented to person, oriented to place, oriented to time, follows commands appropriately, answers questions a ppropriately, no agnosia, no aphasia, no aproxia Cranial nerve examination: PERRL, EOMI, visual carmona intact, corneal reflexes brisk symmetrically, sensory to face intact, mastication intact, no facial asymmetry is present, no dysarthria, hearing is intact symmetrically, soft palate elevates bilaterally upon phonation, gag reflex intact, flexes SCM and trapezius muscles symmetrically with full power, tongue protrudes midline, no atrophy or facial fasiculations present Cerebellar examination: no dysmetria, performs finger to nose and heel to house symmetrically without ataxia, no gait ataxia, no truncal ataxia, no difficulty with rapid alternating movements Results - Laboratory Findings CBC and BMP: 09/16/18 03:00 09/16/18 03:00 Abnormal lab findings: Abnormal lab results RBC 3.59 M/mcL (4.19-5.50) L 09/16/18 03:00 Hgb 9.8 g/dL (12.9-16.9) L 09/16/18 03:00 Hct 30.6 % (37.5-50.1) L 09/16/18 03:00 MCH 27.3 pg (28.0-33.3) L 09/16/18 03:00 RDW 15.4 % (11.5-14.5) H 09/16/18 03:00 MPV 13.0 fL (9.4-12.4) H 09/16/18 03:00 Creatinine 1.32 mg/dL (0.70-1.30) H 09/16/18 03:00 Est GFR (Non-Af Amer) 54 (> 60) L 09/16/18 03:00 Glucose 117 mg/dL (70-105) H 09/16/18 03:00 POC Glucose 181 mg/dL (70-99) H 09/16/18 05:33 Total Bilirubin 0.2 mg/dL (0.3-1.0) L 09/13/18 15:43 ALT 6 Units/L (7-52) L 09/13/18 15:43 B-Natriuretic Peptide 230 pg/mL (Less than 100) H 09/13/18 15:43 Vitamin B12 175 pg/mL (250-1100) L 09/15/18 19:45 Stool Occult Bld Scrn Positive (Negative) A 09/13/18 16:30 Consult Discharge Plan - Plan [facility]errals: [facility] [Primary Care Provider] -
[2018-09-16] MEDS: Budesonide/Formoterol 160/4.5 1 PUFF INH IH SCH (21:29)
--- NOTE | 2018-09-16 21:34 | Vascular/Endovasc Consult Note ---
Date of Encounter: 09/16/18 Time of Encounter: 19:45 Assessment and Plan (1) Carotid stenosis, right Status: Chronic The pathophysiology and natural history of carotid stenosis was discussed with the patient and all questions were answered. The patient has an 80-99% right internal carotid artery stenosis stenosis and a left internal carotid artery occlusion by MRA. He has an acute left hemispheric cerebrovascular accident involving the left wright radiata. The patient will require a right carotid endarterectomy. Given his acute CVA, he will be scheduled as an outpatient for surgery next week. He will continue with daily ASA and Plavix. (2) Carotid occlusion, left Status: Acute (3) HTN (hypertension) Status: Chronic The patient was counseled regarding atherosclerotic risk factor reduction. Qualifiers: Hypertension type: essential hypertension Qualified Code(s): I10 - Essential (primary) hypertension (4) HLD (hyperlipidemia) Status: Chronic Qualifiers: Hyperlipidemia type: mixed hyperlipidemia Qualified Code(s): E78.2 - Mixed hyperlipidemia (5) CAD (coronary artery disease) Status: Chronic Qualifiers: Coronary Disease-Associated Artery/Lesion type: [place] artery [place] vs. transplanted heart: [place] heart Associated angina: without angina Qualified Code(s): I25.10 - Atherosclerotic heart disease of [place] coronary artery without angina pectoris (6) CKD (chronic kidney disease), stage III Status: Chronic (7) Chronic disease anemia Status: Chronic (8) Tobacco abuse Status: Chronic (9) Syncope Status: Acute Qualifiers: Syncope type: unspecified Qualified Code(s): R55 - Syncope and collapse (10) CVA (cerebral vascular accident) Status: Acute Qualifiers: CVA mechanism: unspecified Qualified Code(s): I63.9 - Cerebral infarction, unspecified - History of Present Illness Consult date: 09/16/18 Requesting physician: Jennifer Martinez Consult reason: Carotid stenosis Chief complaint: Cerebrovascular accident History of present illness: Mr. Luna is a 68 year old male with history of peripheral vascular disease, abdominal aortic aneurysm, coronary artery disease, hypertension, hyperlipidemia and chronic kidney disease. The patient reported symptoms of lightheadedness and dizziness while [facility]. He then had a syncopal episode. The patient was resuscitated at the [facility] and then transferred to [facility]. He was admitted for further evaluation. Further evaluation underwent a MRI which revealed an acute infarction of the left frontal coronal radiata. He underwent a head and neck MRA when he was found have a left carotid occlusion and a high-grade stenosis of the right internal carotid artery. Vascular surgery was counseled for further evaluation. Since admission he denies any recurrent symptoms. He denies any neurologic deficits other than memory issues. He denies chest pain or shortness of breath. Past Med Surg Social Fam HX - Past Medical History Medical history: COPD, hyperlipidemia, hypertension, peripheral artery disease, renal disease, other Additional medical history: anemia Psychiatric history: anxiety, depression, PTSD - Past Surgical History Surgical History: herniorrhaphy, LE Bypass, LE stent(s), LE vascular intervention, vascular surgery Additional surgical history: AAA repair. lumbar surgery. femoral bypass B/L - Social History Smoking Status: Current every day smoker Packs per day: 1.4 Smokeless Tobacco Status: No Alcohol use: none Drug use: none - Family History Father Hx Family Endocrine Disorder: Yes Mother Hx Family Endocrine Disorder: Yes Medications and Allergies RX: Calcium Carbonate/Vitamin D3 [Calcium 1,000 + D3 Caplet] 2 tab PO BID 02/20/17 [History] RX: Atorvastatin [Lipitor] 40 mg PO HS 05/11/18 [History] RX: Methocarbamol [Robaxin-750] 750 mg PO TID PRN 05/11/18 [History] RX: Ranitidine HCl [Acid Roller Mill Operator] 150 mg PO BID 05/11/18 [History] RX: Aspirin Enteric Coated [Aspirin EC] 81 mg PO DAILY 4 Days #90 tablet. 05/13/18 [Rx] RX: Albuterol Neb [Proventil Neb] 2.5 mg IH Q6H PRN 09/13/18 [History] RX: Budesonide/Formoterol 160/4.5 [Symbicort 160/4.5] 2 puff IH BIDR 09/13/18 [History] RX: Tiotropium [Spiriva] 18 mcg IH DAILY 09/13/18 [History] RX: Trazodone HCl 150 mg PO HS 09/13/18 [History] RX: Nicotine [Nicotine Patch] 1 each TD DAILY #30 patch.td24 09/17/18 [Rx] RX: Omeprazole [PriLOSEC] 20 mg PO DAILY #30 cap 09/17/18 [Rx] RX: Amlodipine Besylate 5 mg PO PRN PRN 09/22/18 [History] RX: OxyCODONE/APAP 5/325 [Percocet 5/325 MG] 1 each PO Q6HR PRN 5 Days #20 tablet 09/23/18 [Rx] Allergy/AdvReac Type Severity Reaction Status Date / Time gabapentin Allergy See Verified 09/22/18 10:19 Comments hydrochlorothiazide Allergy See Verified 09/22/18 10:19 Comments hydroxyzine [From Vistaril] Allergy See Verified 09/22/18 10:19 Comments All Systems Review: The remainder of the systems were reviewed and are negative - Constitutional Constitutional: no chills, no fever(s) - Cardiovascular Cardiovascular: lightheadedness, no chest pain at rest, no dyspnea at rest, no palpitations - Neurological Neurological: dizziness, syncope Exam Vital Signs, Last 4 Hours Temp Pulse Resp BP Pulse Ox 09/16/18 20:33 98.6 F 80 16 115/58 94 General: Present: Conversant, No Apparent Distress HEENT: Present: Normocephaly, Trachea midline, Pupils equal Neck: Present: Right Carotid bruit. Absent: JVD, Lymphadenopathy, Left Carotid bruit Cardiac: Present: Reg Rate and Rhythm, Normal S1 and S2 Lungs: Present: Normal Breath Sounds, No Wheeze, Rales, Rhonchi Neuro: Present: Alert and responsive, Motor nerves grossly intact, Sensory ne rves grossly intact Abdomen: Present: Soft, Non-tender. Absent: Masses Vascular: Present: Normal capillary refill. Absent: Cyanosis, Edema Skin: Present: No rashes noted on visualized skin Consult Discharge Plan - Plan Instructions: Carotid Artery Disease (DC), Coronary Artery Disease, Facilities Director (GEN) Referrals: Alverto Howard MD [Partnered Physician] - Mandeep Hart DO [Partnered Physician] - [facility] [Primary Care Provider[facility] - Prescriptions: RX: Nicotine [Nicotine Patch] 1 each TD DAILY #30 patch.td24 RX: Omeprazole [PriLOSEC] 20 mg PO DAILY #30 cap
[2018-09-16] MEDS: Pregabalin 75 MG CAPSULE PO SCH (22:44)
[2018-09-17] MEDS: OXYCODONE Oral CONC 10 MG/0.5 ML ORAL.SYG SL PRN ×2 (04:06→10:52)
[2018-09-17] MEDS: Pantoprazole 40 MG VIAL IVP SCH (06:46)
[2018-09-17] MEDS: Budesonide/Formoterol 160/4.5 1 PUFF INH IH SCH (07:57)
[2018-09-17 08:58] LABS: Basophils % 0.4 %; Eosinophils # 0.1 K/mcL (0.0-0.6); Eosinophils % 0.7 %; Hematocrit 33.5 % (37.5-50.1); Hemoglobin 10.6 g/dL (12.9-16.9); Immature Granulocytes % 0.3 % (0-4); Lymphocytes # 1.3 K/mcL (0.6-4.6); Mean Corpuscular HGB Conc 31.6 g/dL (31.6-35.5); Mean Corpuscular Volume 85.5 fL (83.0-100.0); Monocytes # 0.7 K/mcL (0.0-1.3); Monocytes % 9.9 %; Neutrophils # 5.3 K/mcL (1.6-8.9); Platelet Count 170 K/mcL (140-400); Red Blood Count 3.92 M/mcL (4.19-5.50); Red Cell Distribution Width 15.6 % (11.5-14.5); Segmented Neutrophils % 71.7 %
[2018-09-17] MEDS ORDERED: Aspirin Enteric Coated 81 MG Tablet PO SCH (09:00)
[2018-09-17] MEDS ORDERED: Tiotropium 18 MCG inhalation IH SCH (09:00)
[2018-09-17 09:11] LABS: Potassium 4.2 mEq/L (3.5-5.1)
[2018-09-17] MEDS: Pregabalin 75 MG CAPSULE PO SCH (10:48)
[2018-09-17 12:43] VITALS: BP 153/65
--- NOTE | 2018-09-17 12:50 | Vascular/Endovas Progress Note ---
Date of Encounter: 09/17/18 Time of Encounter: 11:10 - Assessment and plan (1) Carotid stenosis, right Current Visit: No Status: Chronic The patient is a left internal carotid artery occlusion. He sustained a left hemispheric cerebrovascular accident. He continues to experience some cognitive deficits of the left side. He denies any significant motor or sensory deficit. He denies a significant speech deficit. He has an 80-99% right internal carotid artery stenosis. He was scheduled for a right carotid endarterectomy next week. The risks, benefits and alternatives were discussed and all questions were answered. He expressed understanding and wishes to proceed. He will continue with daily ASA. He will hold her Plavix prior to surgery. (2) Carotid occlusion, left Current Visit: Yes Status: Acute (3) HTN (hypertension) Current Visit: No Status: Chronic Qualifiers: Hypertension type: essential hypertension Qualified Code(s): I10 - Essential (primary) hypertension (4) HLD (hyperlipidemia) Current Visit: No Status: Chronic Qualifiers: Hyperlipidemia type: mixed hyperlipidemia Qualified Code(s): E78.2 - Mixed hyperlipidemia (5) CAD (coronary artery disease) Current Visit: No Status: Chronic Qualifiers: Coronary Disease-Associated Artery/Lesion type: [place] artery [place] vs. transplanted heart: [place] heart Associated angina: without angina Qualified Code(s): I25.10 - Atherosclerotic heart disease of [place] coronary artery wi thout angina pectoris (6) CKD (chronic kidney disease), stage III Current Visit: No Status: Chronic (7) Chronic disease anemia Current Visit: No Status: Chronic (8) Tobacco abuse Current Visit: No Status: Chronic (9) Syncope Current Visit: Yes Status: Acute Qualifiers: Syncope type: unspecified Qualified Code(s): R55 - Syncope and collapse (10) CVA (cerebral vascular accident) Current Visit: Yes Status: Acute Qualifiers: CVA mechanism: unspecified Qualified Code(s): I63.9 - Cerebral infarction, unspecified - Subjective Interval history: The patient denies any acute issues overnight. He denies any recurrent symptoms of CVA, TIA or amaurosis fug[place]. He denies chest pain or shortness of breath. Vital Signs, Last 4 Hours Temp Pulse Resp BP Pulse Ox 09/17/18 12:39 97.6 F 67 16 153/65 96 - Physical Examination General: Present: Conversant, No Apparent Distress HEENT: Present: Pupils equal Neck: Present: Right Carotid bruit Cardiac: Present: Reg Rate and Rhythm Lungs: Present: Normal Breath Sounds, No Wheeze, Rales, Rhonchi Neuro: Present: Alert and responsive, Motor nerves grossly intact, Sensory nerv es grossly intact Vascular: Present: Normal capillary refill. Absent: Cyanosis, Edema Abdomen: Present: Soft, Non-tender Skin: Present: No rashes noted on visualized skin Results 09/17/18 08:35 09/17/18 08:35 Lab Results, Last 24 hours 09/17/18 09/17/18 08:35 08:35 WBC 7.4 Hgb 10.6 L Hct 33.5 L Plt Count 170 Sodium 142 Potassium 4.2 Chloride 109 H Carbon Dioxide 24 BUN 16 Creatinine 1.58 H Glucose 120 H Calcium 10.0 Consult Discharge Plan - Plan Referrals: [facility] [Primary Care Provider] -
--- NOTE | 2018-09-17 13:17 | Discharge Summary ---
- NOTES TO OUTPATIENT PROVIDER Notes to Outpatient Provider: Resulted after experiencing a syncopal episode was found to have low blood pressure as well as anemia hemoglobin of 6.9 was seen by GI-underwent EGD 2 angiodysplastic lesions mild gastritis. had some confusion- MRI showed acute infarction in left frontal wright radiata - seen by neurology cont with antiplatlet therapy and statin. Carotid stenosis carotid duplex did show right internal artery is 80-89% stenosis as well as left internal artery is occluded-seen by vascular surgery recommending carotid endarterectomy and is scheduled for surgery later this week either Wednesday or . Patient is advised to hold Plavix. Patient did have some hypotension will resume amlodipine at a lower dose and advised patient to monitor blood pressure and to keep blood pressure log. Patient will hold medication for systolic less than 100 Orders not resulted at time of discharge: Pending orders 09/15/18 09:30 Vitamin B1 (Thiamine) Whole Bl Routine 09/18/18 04:00 CBC [Complete Blood Count] [HEME] AM 0400 Chem 7 [Basic Metabolic Panel] AM 0400 Date of Encounter: 09/17/18 Time of Encounter: 13:10 - Discharge Diagnosis (1) Syncope Priority: Primary Status: Acute Qualifiers: Syncope type: unspecified Qualified Code(s): R55 - Syncope and collapse (2) Anemia Priority: Secondary Status: Acute Qualifiers: Anemia type: unspecified type Qualified Code(s): D64.9 - Anemia, unspecified (3) GI bleeding Priority: Secondary Status: Acute Qualifiers: GI bleed type/associated pathology: unspecified gastrointestinal hemorrhage type Qualified Code(s): K92.2 - Gastrointestinal hemorrhage, unspecified (4) CKD (chronic kidney disease), stage III Priority: Secondary Status: Chronic (5) COPD (chronic obstructive pulmonary disease) Priority: Secondary Status: Chronic Qualifiers: COPD type: emphysema Emphysema type: panlobular Qualified Code(s): J43.1 - Panlobular emphysema (6) HLD (hyperlipidemia) Priority: Secondary Status: Chronic Qualifiers: Hyperlipidemia type: mixed hyperlipidemia Qualified Code(s): E78.2 - Mixed hyperlipidemia (7) HTN (hypertension) Priority: Secondary Status: Chronic Qualifiers: Hypertension type: essential hypertension Qualified Code(s): I10 - Essential (primary) hypertension (8) Tobacco abuse Priority: Secondary Status: Chronic (9) CVA (cerebral vascular accident) Priority: Secondary Status: Acute Qualifiers: CVA mechanism: unspecified Qualified Code(s): I63.9 - Cerebral infarction, unspecified (10) Carotid stenosis Priority: Secondary Status: Acute Qualifiers: Laterality: bilateral Qualified Code(s): I65.23 - Occlusion and stenosis of bilateral carotid arteries Hospital course: Mr. Luna is a 68 year old male past medical history of COPD hyperlipidemia hypertension peripheral artery disease CK D patient presented to when necessary see ED after experiencing an episode of syncope. On 09/13/2018 patient was at the [facility] sitting in a chair with his neck flexed plain again cell phone. He abruptly sat up and began to stop breathing and lost consciousness. The reports A CODE BLUE was called-initially it did not get up Alzheimer prior to shocking the patient stated identify a pulse. He was also neck he would take a breath in and stop breathing. No seizure activity or loss of urinary continence. Eventually patient regained consciousness and was breathing on his own. Lab work updated reveal anemia with a hemoglobin of 6.9 as well as hypertension. He was brought to [place] for further workup and evaluation. Plan arrival CT of head was obtained which showed no acute infarct. Patient did r eceive 2 units PRBCs and was seen by GI and underwent EGD- 2 angiodysplastic lesions and mild gastritis -hemoglobin did stabilize blood pressure medications were held and patient's blood pressure also improved. Patient did show some confusion MRI was completed which did show foci of acute infarction of left frontal wright radiata no hemorrhage, echo was completed EF was 66% with no PFO carotid duplexes show 80-99% stenoses right internal carotid artery-left internal carotid artery is occluded vascular surgery did see the patient recommending carotid enterectomy as outpatient. Patient's vital signs have been stable we will resume low-dose of amlodipine and outpatient monitor blood pressure daily. Hemoglobin also has been stable patient-neurologically he is at baseline with no deficits. I did speak with neurology advised to continue with antiplatelet statin and to maintain good blood pressure control. Also spoke with vascular surgery who advised to hold Plavix and will schedule carotid endarterectomy as outpatient occurring possibly Wednesday or . I did review follow-up and medications with the patient and who is at bedside. Advised patient to stop smoking and I did provide him prescription for nicotine patch upon his request. Currently the patient is hemodynamically stable and is ready for discharge. - Time Spent with Patient Total time spent providing and/or coordinating discharge services: - Discharge Medications Prescriptions: Amlodipine Besylate 5 mg PO DAILY #30 tablet Nicotine [Nicotine Patch] 1 each TD DAILY #30 patch.td24 Omeprazole [PriLOSEC] 20 mg PO DAILY #30 cap Home Medications: Albuterol Sulfate [Albuterol Inhaler] 2 puff IH Q6H PRN 02/10/17 [History] Calcium Carbonate/Vitamin D3 [Calcium 1,000 + D3 Caplet] 2 tab PO BID 02/20/17 [History] Atorvastatin [Lipitor] 40 mg PO HS 05/11/18 [History] Docusate Sodium [Dok] 100 mg PO BID 05/11/18 [History] Lactobacillus Acidophilus [Probiotic Acidophilus] 1 tab PO BID 05/11/18 [History] Methocarbamol [Robaxin-750] 750 mg PO TID PRN 05/11/18 [History] Ranitidine HCl [Acid Operation Shift Supervisor] 150 mg PO BID 05/11/18 [History] Aspirin Enteric Coated [Aspirin EC] 81 mg PO DAILY 4 Days #90 tablet. 05/13/18 [Rx] Lidocaine 4% CRM (LMX) [Lmx 4] 1 appl TP QID PRN 05/19/18 [History] Albuterol Neb [Proventil Neb] 2.5 mg IH Q6H PRN 09/13/18 [History] Budesonide/Formoterol 160/4.5 [Symbicort 160/4.5] 2 puff IH BIDR 09/13/18 [History] Tiotropium [Spiriva] 18 mcg IH DAILY 09/13/18 [History] Trazodone HCl 150 mg PO HS 09/13/18 [History] Amlodipine Besylate 5 mg PO DAILY #30 tablet 09/17/18 [Rx] Nicotine [Nicotine Patch] 1 each TD DAILY #30 patch.td24 09/17/18 [Rx] Omeprazole [PriLOSEC] 20 mg PO DAILY #30 cap 09/17/18 [Rx] Allergies/Adverse Reactions: Allergy/AdvReac Type Severity Reaction Status Date / Time gabapentin Allergy See Verified 05/22/18 17:50 Comments hydrochlorothiazide Allergy See Verified 05/22/18 17:50 Comments hydroxyzine [From Vistaril] Allergy See Verified 05/22/18 17:50 Comments Date of admission: 09/13/18 20:51 [facility] care physician: [facility] Consults: 09/13/18 15:55 Consult to Invasive Line Access Team [CONS] Routine Reason for Consult: needs line for angio of carotid Line Type: EPIV 09/13/18 19:31 Consult to Gastroenterology [CONS] Routine Consulting Provider: Gastroenterology [facility] Reason for Consult: GI Bleed Time Notified: 19:32 Call Completed: Yes 09/16/18 12:30 Consult to Neurology [CONS] Routine Consulting Provider: Neurology [facility] Reason for Consult: acute infarct to L frontal wright radiata Time Notified: 12:31 Call Completed: Yes 09/16/18 14:04 Consult to Vascular Surgery [CONS] Routine Consulting Provider: Vascular Surgery [facility] Reason for Consult: 80-99% stenosis located on the right ICA. Left ICA is occluded. Call Completed: Yes 09/16/18 16:04 Consult to Interpret Exam [CONS] Routine Consulting Provider: Mandeep Hart Consult to Interpret Exam: Interpret EEG Discharging clinician: Jennifer Martinez Anticipated date of discharge: 09/17/18 - Constitutional Vitals: Temp Pulse Resp BP Pulse Ox 97.6 F 67 16 153/65 96 09/17/18 12:39 09/17/18 12:39 09/17/18 12:39 09/17/18 12:39 09/17/18 12:39 General appearance: Present: A&O X 3, answers questions appropriately Exam: Constitutional: no chills, no fever(s), no night sweats - EENT Eyes: no change in vision, no discharge, no pain, no photophobia Ears: no ear discharge, no ear pain, no tinnitus Nose, mouth and throat: no dysphagia, no nasal discharge, no neck pain, no sore throat - Cardiovascular Cardiovascular ROS IM: no chest pain, no diaphoresis, no dyspnea, no lightheadedness, no palpitations, no syncope - Respiratory Respiratory: no cough, no dyspnea, no wheezing, no excessive phlegm production - Gastrointestinal Gastrointestinal: no abdominal pain, no diarrhea, no hematemesis, no hematochezia, no melena, no nausea, no vomiting - Musculoskeletal Musculoskeletal ROS IM: no numbness, no tingling - Integumentary Integumentary IM: no rash, no unusual bruising - Neurological Neurological ROS: has some difficulty finding words follows simple commands , no convulsions, no focal weakness, no numbness, no tingling, no tremor(s) - Hematologic/Lymphatic Hematologic/Lymphatic: no easy bruising - Patient Status Disposition: Home, Self-Care Condition: Fair Functional capacity at discharge: independent ambulation Overall status at discharge: patient is back to baseline - Discharge Instructions Follow Up With: [facility] [Primary Care Provider] - - Diet and Activity Activity: increase activity as tolerated Diet: low fat, low cholesterol
--- NOTE | 2018-09-17 19:41 | Electrocardiograph Report ---
[address] [address] Test Date: 2018-09-13 Pat Name: Donovan Luna Department: [id number] Room: 3A Gender: M Sales Forecast Analyst: : 1950 Requested By: Lynnette Ceballos Order Number: [id number] Reading MD: Jim Hodgson Measurements Intervals [place] Rate: 78 P: 72 UT: 174 QRS: 73 QRSD: 86 T: 48 QT: 369 QTc: 421 Interpretive Statements Sinus rhythm Electronically Signed On 09-17-2018 19:40:30 EDT by Jim Hodgson
--- NOTE | 2018-09-17 21:53 | Electrocardiograph Report ---
[address] [address] Test Date: 2018-09-13 Pat Name: Donovan Luna Department: 115 Room: 3A Gender: M Power Transformer Assembler: : 1950 Requested By: [id number] Order Number: [id number] Reading MD: Jim Hodgson Measurements Intervals [place] Rate: 70 P: 87 RI: 175 QRS: 81 QRSD: 97 T: 68 QT: 366 QTc: 388 Interpretive Statements SINUS RHYTHM Electronically Signed On 09-17-2018 21:51:43 EDT by Jim Hodgson
--- NOTE | 2018-09-20 14:09 | Electrocardiograph Report ---
[address] [address] Test Date: 2018-09-16 Pat Name: Donovan Luna Department: 115 Room: 3A Gender: M Strategic Planning Analyst: : 1950 Requested By: Jennifer Maritnez Order Number: [id number] Reading MD: Jose Martin Wilson Measurements Intervals [place] Rate: 66 P: [place]: 0 QRS: 77 QRSD: 98 T: 55 QT: 393 QTc: 406 Interpretive Statements SINUS RHYTHM Electronically Signed On 09-20-2018 14:07:38 EDT by Jose Martin Wilson
== END 2018-09-17 14:40 | disposition home or self-care (01) | DRG 393 ==
LOC: 3ANU 15:08 → EMEROOARM 15:08 → 3ANU 18:20
PROVIDERS: ADMIT Internal Medicine Nephrology; ATTEND Internal Medicine Nephrology

== ENCOUNTER 2018-09-22 09:07 | Inpatient (IN) ==
[2018-09-22] MEDS ORDERED: CeFAZolin Syr 2,000MG/20 ML 2,000 MG/20 ML SYRINGE IVPB ONE (09:40)
[2018-09-22] MEDS ORDERED: Ringers Solution, Lactated 1,000 ML IVC SCH (09:45)
--- NOTE | 2018-09-22 09:47 | Anesthesia Evaluation PreOp ---
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), Syncope (09/13 SECONDARY HYPOTENSION), Other (DEPRESSION, ANXIETY, PTSD) Other Medical History: Renal (CKD 3), Other (ANEMIA) Anesthesia History: No Prior Anesthetic Complications, Past Anesthesia Alcohol Use: none Drug use: none Medications and Allergies Calcium Carbonate/Vitamin D3 [Calcium 1,000 + D3 Caplet] 2 tab PO BID 02/20/17 [History] Atorvastatin [Lipitor] 40 mg PO HS 05/11/18 [History] Methocarbamol [Robaxin-750] 750 mg PO TID PRN 05/11/18 [History] Ranitidine HCl [Acid Ear Nose Throat Physician] 150 mg PO BID 05/11/18 [History] Aspirin Enteric Coated [Aspirin EC] 81 mg PO DAILY 4 Days #90 tablet. 05/13/18 [Rx] Albuterol Neb [Proventil Neb] 2.5 mg IH Q6H PRN 09/13/18 [History] Budesonide/Formoterol 160/4.5 [Symbicort 160/4.5] 2 puff IH BIDR 09/13/18 [History] Tiotropium [Spiriva] 18 mcg IH DAILY 09/13/18 [History] Trazodone HCl 150 mg PO HS 09/13/18 [History] Nicotine [Nicotine Patch] 1 each TD DAILY #30 patch.td24 09/17/18 [Rx] Omeprazole [PriLOSEC] 20 mg PO DAILY #30 cap 09/17/18 [Rx] Amlodipine Besylate 5 mg PO PRN PRN 09/22/18 [History] Allergy/AdvReac Type Severity Reaction Status Date / Time gabapentin Allergy See Verified 09/22/18 10:19 Comments hydrochlorothiazide Allergy See Verified 09/22/18 10:19 Comments hydroxyzine [From Vistaril] Allergy See Verified 09/22/18 10:19 Comments - Meds/Allergy Pre-op Review Medications Reviewed: Yes Allergies Reviewed: Yes Beta Blockers on Current Med List: No Anesthesia Results - Labs Laboratory Tests 10/27/18 10/27/18 08:35 08:35 Hgb 10.6 L Hct 33.5 L Plt Count 170 Creatinine 1.58 H Est GFR (Non-Af Amer) 44 L Laboratory Tests 09/17/18 08:35 Potassium 4.2 Calcium 10.0 - Imaging Additional studies: TTE 08/2018: LVEF 60-65%. Normal LV chamber size, wall thickness and function. Normal right ventricular structure and function. Mildly dilated left atrium. Mild-moderate mitral regurgitation. CAROTID DUPLEX 09/16/2018: ZIYAD: 80-99% STENOSIS LICA: OCCLUDED TRAN VA: ANTEGRADE FLOW NECK MRA 09/16/2018: There is severe focal stenosis of the proximal right internal carotid artery by NASCET criteria. Left internal carotid artery is occluded at its origin. There is intracranial reconstitution of the left internal carotid artery, just proximal to the left posterior communicating artery origin. Given diffusely diminutive appearance of the left common carotid artery, left internal carotid artery occlusion is likely chronic. At least mild narrowing of the right vertebral artery origin. No flow-limiting stenosis of the left vertebral artery. No intracranial flow-limiting stenosis. BRAIN MRI 09/16/2018: 1. Foci of acute infarction in left frontal wright radiata. No associated hemorrhage. 2. Loss of normal flow void within the left internal carotid artery may represent slow flow versus occlusion. CTA of the head and neck recommended for further evaluation. 3. Diffuse parenchymal volume loss and sequela of [id number] chronic microvascular ischemic changes. 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 THE PATIENT HAS NOT TAKEN HIS PLAVIX FOR THE LAST 5 DAYS. CURRENT MEDICATIONS: Calcium Carbonate/Vitamin D3 [Calcium 1,000 + D3 Caplet] 2 tab PO BID 02/20/17 [History Confirmed 09/13/18] Atorvastatin [Lipitor] 40 mg PO HS 05/11/18 [History Confirmed 09/13/18] Methocarbamol [Robaxin-750] 750 mg PO TID PRN 05/11/18 [History Confirmed 09/13/18] Ranitidine HCl [Acid Ear Nose Throat Physician] 150 mg PO BID 05/11/18 [History Confirmed 09/13/18] Aspirin Enteric Coated [Aspirin EC] 81 mg PO DAILY 4 Days #90 tablet. 05/13/18 [Rx Confirmed 09/13/18] Albuterol Neb [Proventil Neb] 2.5 mg IH Q6H PRN 09/13/18 [History Confirmed 09/13/18] Budesonide/Formoterol 160/4.5 [Symbicort 160/4.5] 2 puff IH BIDR 09/13/18 [History Confirmed 09/13/18] Tiotropium [Spiriva] 18 mcg IH DAILY 09/13/18 [History Confirmed 09/13/18] Trazodone HCl 150 mg PO HS 09/13/18 [History Confirmed 09/13/18] Nicotine [Nicotine Patch] 1 each TD DAILY #30 patch.td24 09/17/18 [Rx] Omeprazole [PriLOSEC] 20 mg PO DAILY #30 cap 09/17/18 [Rx] Amlodipine Besylate 5 mg PO PRN PRN 09/22/18 [History Confirmed 09/22/18] THE PATIENT IS HIGH RISK FOR PERIOPERATIVE CVA, SECONDARY PATHOLOGY AND RECENT CVA. HE IS ALSO HIGH RISK FOR PERIOPERATIVE ADVERSE CARDIAC EVENTS SECONDARY TO MAJOR VASCULAR SURGERY AND COMORBID CONDITIONS. Patient and his family understand that he is at increased risk for perioperative complications including myocardial infarct and CVA. Patient wishes to proceed.
[2018-09-22] MEDS ORDERED: Albuterol 2.5 MG/3 ML NEBULIZER IH ONE (09:59)
[2018-09-22] MEDS ORDERED: Vancomycin 1,000 MG, Sodium Chloride IRRigation 1,000 ML IR ONE (10:40)
[2018-09-22] MEDS ORDERED: Heparin 1,000 UNITS/500 mL 500 ML ONE (11:16)
--- NOTE | 2018-09-22 13:01 | History & Physical Report ---
Date of Encounter: 09/22/18 Time of Encounter: 12:45 24 Hour HP Update - Instructions Instructions: If the History and Physical is less than 30 days old and was completed prior to A.M. admission and or procedure and has NOT been updated on calendar day of procedure please complete this update prior to performing procedure. - Update Patient reports changes in Medical Condition: No Changes in examination, assessment, or condition: No Changes in Medication: No Preop tests/diagnostics Reviewed: Yes Surgery Remains Indicated: Yes Consent for Planned Operative Procedure(s) Verified: Yes - Pre-Operative Checklist Preoperative Checklist Indicated: Yes Prophylactic Antibiotic Ordered: Yes (vancomycin due to risk of MRSA) Home Medications Include Beta Cam: No Beta Cam Taken Today (Day of Surgery): No Beta Cam Taken Yesterday (Day Prior to Surgery): No Is VTE Prophylaxis Indicated?: Yes
[2018-09-22] MEDS ORDERED: Lidocaine -MPF 2% 2 ML VIAL ONE ×2 (13:04→17:17)
[2018-09-22] MEDS ORDERED: *HR* Phenylephrine 10 MG/ML VIAL ONE (13:04)
[2018-09-22] MEDS ORDERED: *HR* Propofol 200 MG/20 ML VIAL IVP ONE (13:04)
[2018-09-22] MEDS ORDERED: *HR* Succinylcholine 200 MG/10 ML VIAL IVP ONE (13:04)
[2018-09-22] MEDS ORDERED: *HR* FentaNYL (PF) 100 MCG/2 ML VIAL ONE (13:04)
[2018-09-22] MEDS ORDERED: *HR* Midazolam HCl 2 MG/2 ML VIAL ONE (13:04)
[2018-09-22] MEDS ORDERED: *HR* Remifentanil 1 MG VIAL IVP ONE (13:04)
[2018-09-22] MEDS ORDERED: Heparin 1,000 UNITS/500 mL 1,000 ML ONE (13:11)
[2018-09-22] MEDS ORDERED: Bupivacaine-MPF 0.25% 10 ML VIAL ONE (13:11)
[2018-09-22] MEDS ORDERED: Lidocaine 1% 20 ML MDV ONE (13:11)
[2018-09-22] MEDS ORDERED: Lidocaine -MPF 4% 5 ML AMPUL ONE (13:20)
[2018-09-22] MEDS ORDERED: *HR* Heparin 5,000 UNIT/ML VIAL ONE (13:21)
[2018-09-22] MEDS ORDERED: *HR* PHENYLEPHRINE 1,000 MCG/10 ML SYRINGE IVP ONE (14:04)
[2018-09-22] MEDS ORDERED: Nitroglycerin 1 INCH/GM PACKET ONE (14:05)
[2018-09-22] MEDS ORDERED: Nitroglycerin 25 MG/250 ML INFUS..BTL IVC ONE (14:05)
[2018-09-22] MEDS ORDERED: NiCARdipine 2.5 MG/10 ML Syringe IVPB ONE (14:07)
[2018-09-22] MEDS ORDERED: *HR* Vasopressin 20 UNIT/ML VIAL ONE (14:21)
[2018-09-22] MEDS ORDERED: *HR* Labetalol 20 MG/4 ML SYRINGE IVP PRN ×2 (14:24→19:42)
[2018-09-22] MEDS ORDERED: *HR* OxyCODONE Immed Rel 5 MG TABLET PO PRN ×2 (14:24→19:42)
[2018-09-22] MEDS ORDERED: *HR* HYDROmorphone 2 MG TABLET PO PRN (14:24)
--- NOTE | 2018-09-22 17:19 | Anesthesia Procedures ---
Date of Encounter: 09/22/18 Time of Encounter: 13:10 Procedures: Anesthesia - Arterial Line Consent obtained: written consent Time out performed: Yes Local Anesthetic: Other (LIDOCAINE 2%) Amount of Anesthetic used (mls): 2 Size (Gauge): Other (4 FR) Length (inches): Other (10 CM) Technique Used: sterile prep Patient tolerated procedure: well Complications: none Site: Radial L Comments: ULTRASOUND GUIDED DIFFICULT LEFT PROXIMAL RADIAL ARTERY CATHETER. SMALL CALIBER VESSEL WITH EXTENSIVE ATHEROMATOUS PLAQUE, AND NARROW LUMEN. ATTEMPTS X2 WITH 20GA CATHETER OVER NEEDLE, FAILED TO PUNCTURE ARTERY. ATTEMPT X 1 WITH 19 GA MICROPUNCTURE NEEDLE, UNABLE TO THREAD WIRE INTO LUMEN. ATTEMPT X1 MORE PROXIMAL. INITIALLY THERE WAS PROLONGED CAPILLARY REFILL, BUT T HAT NORMALIZED AFTER INDUCTION OF ANESTHESIA.
--- NOTE | 2018-09-22 17:52 | Operative Note ---
Date of procedure: 09/22/18 Pre-op diagnosis: Symptomatic 80-99% right internal carotid stenosis Post-op diagnosis: same Procedure: Right carotid endarterectomy with Hemashield patch angioplasty. Complications: None Anesthesia: GETA Surgeon: Alverto Howard Was there an commercial real estate assistant present: No Estimated blood loss (cc): 50 Specimen: Right carotid plaque Condition: stable Disposition: PACU Procedure in Detail: Indications: The patient is a 68-year-old male with a history of hypertension, hyperlipidemia, tobacco abuse, coronary artery disease and peripheral vascular disease. The patient has a history of carotid stenosis with a known left internal carotid artery occlusion. He was found have an 80-99% right internal carotid artery stenosis. Surgery was recommended to reduce his risk of future stroke. Procedure: The patient was identified in the preoperative area. The risks, benefits, and alternatives of the procedure were discussed and all questions were answered. The patient was then taken to the operating room and placed in supine position on the operating table. After the induction of general endotracheal anesthesia, the patient was cleaned and draped in normal sterile fashion. A longitudinal incision was made anterior to the right sternocleidomastoid muscle. Hemostasis was obtained via electrocautery. Through a process of blunt, sharp, and electrocautery dissection, the platysma was traversed and the jugular vein was identified. The facial vein was dissected, clamped, divided and ligated with a 2-0 silk suture ligature. The jugular vein was retracted to expose the carotid bifurcation. The patient received 2000 units of heparin intravenously at this time. Proximal dissection of the common and external carotid arteries were performed circumferentially. Of note a large nerve bundle was noted to be crossing the common carotid artery just below the carotid bifurcation. Care was taken to avoid injuring the nerve bundle. Dissection of the internal carotid was performed circumferentially. Vessels loops were passed around the internal and external carotid and an umbilical tape was passed from the common carotid artery. The patient received additional 3000 units of heparin intravenously. Additional heparin was given throughout the procedure to maintain adequate anticoagulation. After waiting adequate time for the heparin to circulate, the vessels were occluded and a longitudinal arteriotomy was made into the common carotid artery and extended into the internal carotid beyond the plaque. The plaque was long, extended distally and was heavily calcified. Vigorous pulsatile retrograde flow was noted from the internal carotid artery upon release of the vessel loop. Due to the rapid pulsatile retrograde flow, no shunt was placed. A dental Lamont was then used to perform a standard endarterectomy. Proximal and distal endpoints were inspected. No elevated flaps were noted. A Hemashield patch was cut to fit the defect and sutured in place with running 6-0 Prolene. Prior to completing the closure, each vessel was flushed and then reoccluded. Heparinized saline was infused into the lumen. The patch was completed. Flow was restored in the external carotid artery, followed the common carotid artery, lastly the internal carotid artery was opened. A low resistance arterialized signal was present within the internal carotid artery beyond the patch. Thrombin and Gelfoam were used to aid in hemostasis. Meticulous hemostasis was obtained throughout the wound with electrocautery. Platelet rich and platelet poor plasma were infused into the wounds. The sternocleidomastoid was reapproximated with interrupted 3-0 Vicryl. Platelet rich and platelet poor plasma were infused into the wound. A TLS drain was brought through a separate stab incision and sutured in place with 0 silk suture. The platysma was reapproximated with running 3-0 Vicryl. Local anesthetic was infused in the skin. A 3-0 Monocryl was used to reapproximate the skin. A sterile dressing was applied. The patient was extubated, taken to the recovery room in stable condition.
--- NOTE | 2018-09-22 18:24 | Anesthesia Evaluation Post Op ---
Date of Encounter: 09/22/18 Time of Encounter: 18:23 - Vital Signs Vital Signs: Last Vital Signs Temp 97.8 F 09/22/18 17:48 Pulse 61 09/22/18 18:08 Resp 16 09/22/18 18:08 BP 124/67 09/22/18 18:08 Pulse Ox 99 09/22/18 18:08 - Lungs Lungs: Clear Ascult./Percussion - Airway Airway: Non-obstructed - Cardiovascular Regular Rate - Mental Status Mental Status: Alert & Oriented, Answers Appropriately - Pain Pain Scale: 3 - Nausea Vomiting Nausea Vomiting: Not Present - Hydration Hydration: NPO - Discharge PostOp Status: Transfer Patient to floor
[2018-09-22] MEDS ORDERED: Acetaminophen 325 MG TABLET PO PRN (19:42)
[2018-09-22] MEDS ORDERED: 0.9 % Sodium Chloride 1,000 ML IVC SCH (19:42)
[2018-09-22] MEDS ORDERED: Methocarbamol 750 MG TABLET PO PRN (19:42)
[2018-09-22] MEDS ORDERED: Ondansetron 4 MG/2 ML VIAL IVP PRN (19:42)
[2018-09-22] MEDS ORDERED: Naloxone 0.4 MG/ML INJ IVP PRN (19:42)
[2018-09-22] MEDS ORDERED: Albuterol 2.5 MG/3 ML NEBULIZER IH PRN (19:42)
[2018-09-22] MEDS ORDERED: amLODIPine 5 MG TABLET PO PRN (20:22)
[2018-09-22] MEDS: *HR* Metoprolol 5 MG/5 ML VIAL IVP SCH ×2 (20:26→22:59)
[2018-09-22] MEDS: *HR* HYDROcodone/Acet 5/325 mg TABLET PO PRN (20:36)
[2018-09-22] MEDS: Famotidine 20 MG TABLET PO SCH (20:36)
[2018-09-22] MEDS ORDERED: [UNRECOGNIZED DRUG - OTHER] PO SCH (21:00)
[2018-09-22] MEDS ORDERED: CALCIUM CARBONATE PO SCH (21:00)
[2018-09-22] MEDS ORDERED: VITAMIN D3 PO SCH (21:00)
[2018-09-22] MEDS ORDERED: traZODone 50 MG TABLET PO SCH (21:00)
[2018-09-22] MEDS: Budesonide/Formoterol 160/4.5 1 PUFF INH IH SCH (22:13)
[2018-09-23] MEDS ORDERED: Vancomycin 1,000 MG in D5% in Water 250 ML IVPB ONE ×2 (01:00)
[2018-09-23] MEDS: *HR* Metoprolol 5 MG/5 ML VIAL IVP SCH (05:15)
[2018-09-23] MEDS: *HR* HYDROcodone/Acet 5/325 mg TABLET PO PRN (05:37)
[2018-09-23] MEDS ORDERED: *HR* Heparin 5,000 UNIT/ML VIAL SQ SCH ×2 (06:00)
[2018-09-23 07:23] VITALS: BP 145/76
[2018-09-23] MEDS: Budesonide/Formoterol 160/4.5 1 PUFF INH IH SCH (07:34)
[2018-09-23] MEDS: Famotidine 20 MG TABLET PO SCH (08:13)
--- NOTE | 2018-09-23 08:52 | Discharge Summary ---
Orders not resulted at time of discharge: Pending orders 09/22/18 17:04 Surgical Pathology [PTH] Routine Date of Encounter: 09/23/18 Time of Encounter: 09:05 - Discharge Diagnosis (1) Carotid stenosis, right Priority: Primary Status: Chronic Comments: The patient is postoperative day #1 after a right carotid endarterectomy. He is alert and comfortable. He is able to tolerate a diet. He reports some mild hoarseness but reports states that it is getting better. He has no new neurologic deficits. He will be discharged today. (2) Carotid occlusion, left Priority: Secondary Status: Acute (3) CAD (coronary artery disease) Priority: Secondary Status: Chronic Qualifiers: Coronary Disease-Associated Artery/Lesion type: knik artery [place] vs. transplanted heart: knik heart Associated angina: without angina Qualified Code(s): I25.10 - Atherosclerotic heart disease of knik coronary artery without angina pectoris (4) CKD (chronic kidney disease), stage III Priority: Secondary Status: Chronic (5) Chronic disease anemia Priority: Secondary Status: Chronic (6) Tobacco abuse Priority: Secondary Status: Chronic Comments: The patient was counseled regarding smoking cessation (7) HTN (hypertension) Priority: Secondary Status: Chronic Qualifiers: Hypertension type: essential hypertension Qualified Code(s): I10 - Essential (primary) hypertension (8) HLD (hyperlipidemia) Priority: Secondary Status: Chronic Qualifiers: Hyperlipidemia type: mixed hyperlipidemia Qualified Code(s): E78.2 - Mixed hyperlipidemia - Hospital Course Hospital course: Mr. Luna is a 68 year old male who was found have a critical right internal carotid artery stenosis. He was admitted on 09/22/2018 underwent a right carotid endarterectomy. He tolerated the procedure well. On postoperative day #1 he was alert without focal neurologic deficits. He was tolerating a diet. He did have some mild hoarseness reported that it was improving. His incision appeared to be healing well. He was discharged in stable condition without complication. Time spent discussing smoking cessation with patient: 3 to 10 minutes - Time Spent with Patient Total time spent providing and/or coordinating discharge services: - Discharge Medications Prescriptions: OxyCODONE/APAP 5/325 [Percocet 5/325 MG] 1 each PO Q6HR PRN 5 Days #20 tablet PRN Reason: Postoperative pain Home Medications: Calcium Carbonate/Vitamin D3 [Calcium 1,000 + D3 Caplet] 2 tab PO BID 04/01/17 [History] Atorvastatin [Lipitor] 40 mg PO HS 05/11/18 [History] Methocarbamol [Robaxin-750] 750 mg PO TID PRN 05/11/18 [History] Ranitidine HCl [Acid Clinical Quality Manager] 150 mg PO BID 05/11/18 [History] Aspirin Enteric Coated [Aspirin EC] 81 mg PO DAILY 4 Days #90 tablet. 05/13/18 [Rx] Albuterol Neb [Proventil Neb] 2.5 mg IH Q6H PRN 09/13/18 [History] Budesonide/Formoterol 160/4.5 [Symbicort 160/4.5] 2 puff IH BIDR 09/13/18 [History] Tiotropium [Spiriva] 18 mcg IH DAILY 09/13/18 [History] Trazodone HCl 150 mg PO HS 09/13/18 [History] Nicotine [Nicotine Patch] 1 each TD DAILY #30 patch.td24 09/17/18 [Rx] Omeprazole [PriLOSEC] 20 mg PO DAILY #30 cap 09/17/18 [Rx] Amlodipine Besylate 5 mg PO PRN PRN 09/22/18 [History] OxyCODONE/APAP 5/325 [Percocet 5/325 MG] 1 each PO Q6HR PRN 5 Days #20 tablet 09/23/18 [Rx] Allergies/Adverse Reactions: Allergy/AdvReac Type Severity Reaction Status Date / Time gabapentin Allergy See Verified 09/22/18 10:19 Comments hydrochlorothiazide Allergy See Verified 09/22/18 10:19 Comments hydroxyzine [From Vistaril] Allergy See Verified 09/22/18 10:19 Comments Date of admission: 09/22/18 19:28 [facility] care [facility]: [facility] Procedure(s) Performed: Right carotid endarterectomy Discharging clinician: Alverto Howard Anticipated date of discharge: 09/23/18 Exam Vital Signs, Last 4 Hours Temp Pulse Resp BP Pulse Ox 09/23/18 07:34 14 96 09/23/18 07:21 97.8 F 69 12 145/76 96 General: Present: Conversant, No Apparent Distress HEENT: Present: Trachea midline, Pupils equal Neck: Present: Other (Incision clean, dry and intact without erythema or drainage, no hematoma, no pulsatile mass). Absent: JVD Cardiac: Present: Reg Rate and Rhythm Lungs: Present: Normal Breath Sounds Neuro: Present: Alert and responsive, Motor nerves grossly intact, Sensory nerves grossly intact Abdomen: Present: Soft Vascular: Present: Normal capillary refill. Absent: Cyanosis, Edema Skin: Present: No rashes noted on visualized skin - Patient Status Disposition: Home, Self-Care Condition: Good Functional capacity at discharge: independent ambulation Overall status at discharge: patient is back to baseline - Discharge Instructions Follow Up With: Alverto Howard MD [Partnered Physician] - 10/25/18 2:50 pm [facility],PCP [Primary Care Provider] - Additional Instructions: May remove bandage and shower on 09/24/2018. Wash wound gently and pat to dry. No driving for [address] Howard at [phone] with questions or concerns. - Diet and Activity Activity: increase activity as tolerated Diet: advance to your usual diet
[2018-09-23] MEDS ORDERED: Aspirin Enteric Coated 81 MG Tablet PO SCH (09:00)
[2018-09-23] MEDS ORDERED: Cholecalciferol (D-3) 1,000 UNIT TABLET PO SCH (09:00)
[2018-09-23] MEDS ORDERED: Nicotine 14 MG PATCH.TD24 TD SCH (09:00)
[2018-09-23] MEDS ORDERED: Tiotropium 18 MCG inhalation IH SCH (09:00)
== END 2018-09-23 10:25 | disposition home or self-care (01) | DRG 39 ==
LOC: SAMDAY 09:07 → 2NNU 19:28
PROVIDERS: ADMIT Surgery; ATTEND Surgery